=== PATIENT | male | born 1950 | race Caucasian/White ===

== ENCOUNTER 2019-03-07 18:18 | Outpatient (REF) | payer MEDICARE, OTHER, SELFPAY ==
[2019-03-07 20:48] LABS: ALT 67 U/L (12-78); BUN 24 mg/dL (7-18); CREATININE 1.11 mg/dL (0.70-1.30); Calcium 8.7 mg/dL (8.5-10.1); Chloride 106 mmol/L (98-107); Glucose 105 mg/dL (70-100); LDL CHOLESTEROL 97 mg/dL (<100); Sodium 141 mmol/L (136-145)
[2019-03-09 10:43] LABS: PSA, Diagnostic 0.4 ng/ml (0-4.5)
== END 2019-03-07 18:38 ==
LOC: NCHCN 18:18
PROVIDERS: PCP Internal Medicine; Visit Provider Internal Medicine
DX: I10 Essential (primary) hypertension (principal); E78.5 Hyperlipidemia, unspecified; N40.0 Benign prostatic hyperplasia without lower urinary tract symptoms
CPT/HCPCS: 80048; 83721; 84153; 84460

== ENCOUNTER 2020-08-29 16:21 | Outpatient (REF) | payer MEDICARE, OTHER, SELFPAY ==
--- NOTE | 2020-08-29 15:20 | SKI_PTH ---
PATIENT: Elvin Winkler JR LOC: [facility] U#:[id number] AGE/SX: 70/M ROOM: RE08/29/[address]: Aryan Wyatt : 1950 BED: DIS: 08/29/2020 SPEC #: [id number] RECD: 09/01/20 12:09 STATUS: JAIRO REFamilia #: [id number] RAMIN: 08/29/20 15:[address]: Aryan Wyatt DEPT: Surgical Specimen RECD BY: Trista Aguirre ENTERED: 09/01/20 12:10 SP TYPE: NEELA MCKENZIE DR: Jem Villagomez Tissues: 1 - SKIN BIOPSY(SHAVE/PUNCH) Procedures: SKIN LEVEL 4 Comments: [id number]
[2020-08-29 19:36] LABS: ALT 50 U/L (16-63); Albumin 3.7 g/dL (3.4-5.0); Anion Gap 9.4 mmol/L (3-11); BUN 17 mg/dL (7-18); CO2 26.6 mmol/L (21.0-32.0); CREATININE 0.9 mg/dL (0.70-1.30); Calcium 8.7 mg/dL (8.5-10.1); Chloride 107 mmol/L (98-107); Glucose 113 mg/dL (74-106); PHOSPHORUS 3.3 mg/dL (2.6-4.7); Potassium 4.1 mmol/L (3.5-5.1); Sodium 143 mmol/L (136-145)
[2020-08-29 20:03] LABS: LDL CHOLESTEROL 91 mg/dL (<100)
== END 2020-08-29 16:22 | disposition home or self-care (01) ==
LOC: NCHCN 16:21
PROVIDERS: PCP Internal Medicine; Visit Provider Internal Medicine
DX: E78.5 Hyperlipidemia, unspecified (principal); D03.39 Melanoma in situ of other parts of face
CPT/HCPCS: 80069; 83721; 84460; 88305

== ENCOUNTER 2020-11-17 12:36 | Outpatient (REF) | payer MEDICARE, OTHER, SELFPAY ==
[2020-11-18 02:01] LABS: COVID-19 RT-PCR UVMMC Result Negative (Negative)
== END 2020-11-17 12:37 | disposition home or self-care (01) ==
LOC: NCHCN 12:36
PROVIDERS: PCP Internal Medicine; Visit Provider Physician Assistant
DX: Z20.822 Contact with and (suspected) exposure to COVID-19 (principal); Z01.818 Encounter for other preprocedural examination
CPT/HCPCS: U0003; U0005

== ENCOUNTER 2022-02-08 17:33 | Outpatient (REF) | payer MEDICARE, OTHER, SELFPAY ==
--- OUTSIDE RECORDS SUMMARY | 2022-02-08 17:43 | XMS_ITS | Encounter Summary ---
:1950 Author Organization [facility] Address [address] [place] [address] Care Team Providers Name Role Phone Jem Villagomez MD Primary Care Provider Encounter Details Date Type Department Care Team Description 11/17/2020 Lab Requisition [facility] Outr Resulting Lab, Pathology & Laboratory Provider [facility] [address], [place] [address] Social History Tobacco Use Types Packs/Day Years Used Date Never Assessed Sex Assigned at Date Recorded Not on file documented as of this encounter Plan of Treatment Not on filedocumented as of this encounter Procedures Procedure Name Priority Date/Time Associated Diagnosis Comme nts COVID-19 TEST [facility] Today 11/17/2020 8:30 EDT LAB PCR COVID-19 TESTING Routine 11/17/2020 8:30 EDT Resu lts for this procedure are i n the results section. documented in this encounter Results COVID-19 TEST [facility] LAB PCR (11/17/2020 8:30 EDT) Specimen Swab - Entire nasopharynx (body structur e) Performing Organization Address City/State/ZIP Code Phon e Number [facility] [address] [place] [address] SERVICES COVID-19 TESTING (11/17/2020 8:30 EDT) COVID-19 rt-PCR Negative Negative [facility] Result Comment: [facility] This test has not been FDA c leared or approved. This test has been authorized by FDA under an EUA for use by authorized laboratories. This test has been authorized only for detection of nucleic acid fro SERVICES m 2019-nCoV, not for any oth er viruses or pathogens. This test is only authorized for the duration of the declaration that circumstances exist justifying the authorization of emergency use of in vitro d iagnostic tests for detectio n and/or diagnosis of 2019-nCoV under section 564(b)(1) of Act, 21 U.S.C ?? 360bbb-3(b) (1), unless the authorization is terminated or revoked sooner. Negative results do not prec lude 2019-nCoV infection and should not be used as the sole basis for treatment or other patient management decisions. Negative results must be combined with clinical observa tions, patient history, and epidemiological informatio n. Performed on the KODAher Fusion instrument Performing Lab [facility] SERVICES Specimen Swab Performing Organization Address City/State/ZIP Code Phon e Number [facility] [address] [place] [address] SERVICES documented in this encounter Visit Diagnoses Not on filedocumented in this encounter Care Teams Dental Appliance Mechanic Relationship Specialty Start Date End Date Jem Villagomez MD PCP - General 01/16/[address] [place] [address] documented as of this encounter
--- OUTSIDE RECORDS SUMMARY | 2022-02-08 17:43 | XMS_ITS | Encounter Summary ---
:1950 Author Organization [facility] [place] [address] Care Team Providers Name Role Phone Aryan Wyatt MD Primary Care Provider Encounter Details Date Type Department Care Team Description 10/22/2021 Office Visit Otolaryngology at [facility] Lucas Saavedra Melanoma of face [facility] [place] [address] [facility] [phone] OTOLARYNGOLOGY DEPT. [place], [place] [address] Social History Tobacco Use Types Packs/Day Years Used Date Never Smoker Smokeless Tobacco: Never Used Alcohol Use Standard Drinks/Week Comments Yes 0 (1 standard drink = 0.6 oz pure alcoho l) occ. Alcohol Habits Answer Date Recorded How often do you have a drink containing alcohol? Not asked How many drinks containing alcohol do you have on a typical Not asked day when you are drinking? How often do you have six or more drinks on one occasion? No t asked Comment: occ. 11/19/2020 Sex Assigned at Date Recorded Not on file documented as of this encounter Last Filed Vital Signs Vital Sign Reading Time Taken Comments Blood Pressure - - Pulse - - Temperature - - Respiratory Rate - - Oxygen Saturation - - Inhaled Oxygen Concentration - - Weight 103.1 kg (227 lb 6.4 oz) 10/22/2021 10:04 AM EDT Height 177.8 cm (5' 10) 10/22/2021 10:04 AM EDT Body Mass Index 32.63 10/22/2021 10:04 AM EDT documented in this encounter Progress Notes Lucas Saavedra MD - 10/22/2021 10:40 AM EDT Images from the original note were not included. Subjective: Patient ID: Elvin Winkler Jr. is a 71 y.o. male. HPI He is seen in follow up of his left cheek melanoma. Date Presented melanoma TB: 12/09/2020 Diagnosis/Tumor Site: Invasive melanoma of the left cheek Is this Metastatic Disease: No Pathology/Histology: 10/30/19 left cheek Mohs excision: Invasive melanoma, 2.2mm, 9 mitosis, ulceration not noted 11/20/19 Left Neck SLNB: Fibroadipose tissue, no lymphoid tissue identified Stage: pT3a N0 (no mapping so no N stage) Tx- at least stagte IIA Options Discussed: Surveillance vs completion lymph node dissection, CT of the neck Recommendations: surveillance with ENT and dermatology Doing well since last visit Mar with me. Reports feeling great. He notes that the cheek wound appearance is much improved and remains very pleased. Denies new concerning lesion on face and denies neck mass. Occasional itching from the SLNB site on left neck. No issue with donor site Followed in dermatology, last visit Jun 2021 No past medical history on file. Past Surgical History: Procedure Laterality Date ? ? PRO ADJ TISS XFER HEAD, FAC, HAND <10SQCM Left 11/19/2020 ADJ.TISSUE TRANSFER, REARRANGEMENT, 10SQ.CM OR LESS, CHEEK (WRVU 8.6) performed by Blaze Saavedra MD at [facility] MAIN OR ??? PRO BX/REMV, LYMPH NODE, DEEP CERV Left 11/19/2020 BIOPSY OR EXCISION OF LYMPH NODE(S), OPEN, DEEP CERVICAL NODES (WRVU 6.74) performed by Lucas Saavedra MD at [facility] MAIN OR ? ? PRO FULL THICK GRFT NOS, EAR, LID <20SQCM 11/19/2020 FULL THICKNESS GRAFT,FREE, W/ DIRECT CLOSURE DONOR SITE, 20SQ CM OR LESS, EYELIDS (WRVU 11.64) performed by Lucas Saavedra MD at [facility] MAIN OR Patient Active Problem List Diagnosis Code ??? 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 Malignant melanoma C43.9 Current Outpatient Medications: ??? aspirin EC 81 mg Tablet, Delayed Release (E.C.), Take 1 tablet by mouth daily., Disp: 30 tablet,Rfl: 0 ??? glucosamine sulfate 500 mg Tablet, Take by mouth., Disp: , Rfl: ??? lactobacillus rhamnosus, GG, (CULTURELLE) 10 billion cell Capsule, Take 1 capsule by mouth daily., Disp: , Rfl: ??? amLODIPine (Norvasc) 10 mg Tablet, TAKE 1 TABLET BY MOUTH EVERY DAY, Disp: , Rfl: ??? torsemide (Demadex) 10 mg Tablet, TAKE 1 TABLET BY MOUTH EVERY DAY, Disp: , Rfl: ??? lisinopriL (Prinivil;Zestril) 40 mg Tablet, TAKE 1 TABLET BY MOUTH EVERY NIGHT, Disp: , Rfl: ??? finasteride (Proscar) 5 mg Tablet, TAKE 1 TABLET BY MOUTH DAILY, Disp: , Rfl: ??? simvastatin (Zocor) 40 mg Tablet, Take 40 mg by mouth nightly., Disp: , Rfl: ??? calcium carbonate/vitamin D3 (VITAMIN D-3 ORAL), Take by mouth., Disp: , Rfl: ??? potassium (POTASSIMIN ORAL), Take by mouth., Disp: , Rfl: ??? acetaminophen (Tylenol) 325 mg Tablet, Take 2 tablets by mouth every 4 hours as needed for Pain.(Patient not taking: No sig reported), Disp: 30 tablet, Rfl: 1 Allergies Allergen Reactions ??? Sulfa (Sulfonamide Antibiotics) Rash Review of Systems: A comprehensive Review of Systems is completed and except as noted in the HPI is negative for constitutional, neurologic, respiratory, cardiac, vascular, immune, GI, , MSK, endocrine, skin, and functional systems which are reviewed. No family history on file. There is no pertinent family history of otolaryngology problems. Social History Socioeconomic History ??? Marital status: Spouse name: Not on file ??? Number of children: Not on file ??? Years of education: Not on file ??? Highest education level: Not on file Occupational History ??? Not on file Tobacco Use ??? Smoking status: Never Smoker ??? Smokeless tobacco: Never Used Vaping Use ??? Vaping Use: Never used Substance and Sexual Activity ??? Alcohol use: Yes Comment: occ. ??? Drug use: Not Currently ??? Sexual activity: Not on file Other Topics Concern ??? Not on file Social History Narrative ??? Not on file Social Determinants of Health Financial Resource Strain: Not on file Food Insecurity: Not on file Transportation Needs: Not on file Physical Activity: Not on file Housing Stability: Not on file retired Review of Systems Objective: Physical Exam Vitals and nursing note reviewed. Constitutional: General: He is not in acute distress. Appearance: He is well-developed. He is not diaphoretic. HENT: Head: Normocephalic. Jaw: No trismus. Right Ear: Tympanic membrane, ear canal and external ear normal. No tenderness. No middle ear effusion. Left Ear: Tympanic membrane, ear canal and external ear normal. No tenderness. No middle ear effusion. Nose: Septal deviation present. No nasal deformity or mucosal edema (mild). Mouth/Throat: Mouth: No oral lesions. Pharynx: Uvula midline. No oropharyngeal exudate. Eyes: General: No scleral icterus. Conjunctiva/sclera: Conjunctivae normal. Pupils: Pupils are equal, round, and reactive to light. Neck: Thyroid: No thyroid mass or thyromegaly. Vascular: No carotid bruit. Trachea: No tracheal deviation. Pulmonary: Effort: Pulmonary effort is normal. No respiratory distress. Breath sounds: No stridor. Musculoskeletal: Cervical back: Normal range of motion and neck supple. Lymphadenopathy: Cervical: No cervical adenopathy. Skin: General: Skin is warm. Findings: No erythema. Neurological: Mental Status: He is alert and oriented to person, place, and time. Cranial Nerves: No cranial nerve deficit. Deep Tendon Reflexes: Reflexes are normal and symmetric. Psychiatric: Behavior: Behavior normal. Thought Content: Thought content normal. Judgment: Judgment normal. Assessment and Plan: Doing well. Discussed need for continued follow ups with dermatology F/U in ENT PRN documented in this encounter Plan of Treatment Upcoming Encounters Date Type Specialty Care Team Description 04/15/2022 Office Visit Dermatology Erasto Barrett M D [facility] DR [address] [place], [place] [address] (Wo rk) documented as of this encounter Visit Diagnoses Diagnosis Melanoma of face Malignant melanoma of skin of other and unspecified parts of face documented in this encounter Care Teams Electrical Tech Relationship Specialty Start Date End Date Aryan Wyatt MD PCP - General General Internal Medicine 10/29/[address] [place] [address] documented as of this encounter
--- OUTSIDE RECORDS SUMMARY | 2022-02-08 17:43 | XMS_ITS | Encounter Summary ---
:1950 Author Organization [facility] [place] [address] Care Team Providers Name Role Phone Aryan Wyatt MD Primary Care Provider Encounter Details Date Type Department Care Team Description 12/02/2020 Telephone Otolaryngology at [facility] [place] [address] Social History Tobacco Use Types Packs/Day Years [...] on file documented as of this encounter Miscellaneous Notes Telephone Encounter - Jennifer Alfaro - 12/02/2020 2:34 PM EDT Called pt to schedule 6 wk fuv OV with BG. LVM for pt to call back. documented in this encounter Plan of Treatment Upcoming Encounters Date Type Specialty Care Team Description 04/15/2022 Office Visit Dermatology Erasto Barrett M D [facility] DR [address] [place], [place] [address] (Wo rk) documented as of this encounter Visit Diagnoses Not on filedocumented in this encounter Care Teams Bead Wire Insulator Relationship Specialty Start Date End Date Aryan Wyatt MD PCP - General General Internal Medicine 10/29/[address] [place] [phone] documented as of this encounter
--- OUTSIDE RECORDS SUMMARY | 2022-02-08 17:43 | XMS_ITS | Encounter Summary ---
:1950 Author Organization [facility] Address [address] [place] [address] Care Team Providers Name Role Phone Unavailable Primary Care Provider Unavailable Encounter Details Date Type Department Care Team Description 02/16/2007 Results Only [facility] - Esha Blanca conversion MD [address] [facility] [address] [place], [place] [id number] [place] [phone] (Wo rk) Social History Tobacco Use Types Packs/Day Years Used Date Never Assessed Sex Assigned at Date Recorded Not on file documented as of this encounter Plan of Treatment Not on filedocumented as of this encounter Procedures Procedure Name Priority Date/Time Associated Diagnosis Comme nts CYTOPATHOLOGY Routine 02/16/2007 0:00 EDT Results for this procedure are i n the results section. CYTOPATHOLOGY Routine 02/16/2007 0:00 EDT Results for this procedure are i n the results section. CYTOPATHOLOGY Routine 02/16/2007 0:00 EDT Results for this procedure are i n the results section. SURGICAL PATHOLOGY Routine 02/16/2007 0:00 EDT Re sults for this procedure are i n the results section. documented in this encounter Results CYTOPATHOLOGY (02/16/2007 0:00 EDT) Pathology Report: CYTOPATHOLOGY REPORT [facility] Reports generated via electronic interface contain gissel ginal data; however they are lacking the format of the original re port. Caution should be taken when reading/interpreting unfo rmatted reports. Name: ? PHIL WINKLER ? Accession #: ? [id number] : ? 1950 (Age: 56) ??M ?Collect Date: ? 01/23 Location: ? [facility] ? Receive Date : ? 02/17/2007 Provider: ? EBEN LEMON MD Copy to: ?IVON MERCER MD ? CYTOLOGIC DIAGNOSIS: ? Lung, right upper lobe, bronchial brush, cytolo gic evaluation: - No malignant cells identified. Document reviewed and electronically signed by: ? RUTH FERRER MD Report Date: ??02/17/2007 17:16 By the signature above, the attending physician certif ies that he/she has personally conducted a gross and/or microscopic examin ation of the described specimens and rendered or confirmed the above diagnosi s. Specimen Type: ? Bronchial [place], Right Upper Lobe Clinical History: ? Life-long non-smoker. ??Right upper lobe cavitary mass. ??Hemoptysis x1 month ago. ??PPD negative. ??Rule out lung can cer vs. TB vs. Derick's granuloma. ? Gross Description: ? 1 tube of Cytolyt, containing bru sh collection device, was received and processed by selective cellular enhancement technique. ? End of Report Specimen Performing Organization Address City/State/ZIP Code Phon e Number [facility] [address] [place] [address] SERVICES [facility] [address] [place] [address] CYTOPATHOLOGY (02/16/2007 0:00 EDT) Pathologist [facility] [place] Pathology Report: CYTOPATHOLOGY REPORT [facility] Reports generated via electronic interface contain gissel ginal data; however they are lacking the format of the original re port. Caution should be taken when reading/interpreting unfo rmatted reports. Name: ? PHIL WINKLER ? Accession #: ? [id number] : ? 1950 (Age: 56) ??M ?Collect Date: ? 01/23 Location: ? [facility] ? Receive Date : ? 02/17/2007 Provider: ? EBEN LEMON MD Copy to: ?IVON MERCER MD ? CYTOLOGIC DIAGNOSIS: ? Lung, right upper, bronchial wash #4, cytologic evaluation: - No malignant cells identified. Document reviewed and electronically signed by: ? RUTH FERRER MD Report Date: ??02/17/2007 17:16 By the signature above, the attending physician certif ies that he/she has personally conducted a gross and/or microscopic examin ation of the described specimens and rendered or confirmed the above diagnosi s. Specimen Type: ? Bronchial Wash, Right Upper Lobe (#4) Clinical History: ? Life-long non-smoker. ??Right upper lobe cavitary mass. ??Hemoptysis x1 month ago. ??PPD negative. ??Rule out lung cancer vs. TB vs. Derick's granuloma. ? Gross Description: ? 1 tube of Cytolyt was received and processed by selective cellular enhancement technique. ? End of Report Specimen Performing Organization Address City/State/ZIP Code Phon e Number [facility] [address] [place] [address] SERVICES [facility] [address] [place] [address] CYTOPATHOLOGY (02/16/2007 0:00 EDT) Pathologist [facility] [place] Pathology Report: CYTOPATHOLOGY REPORT [facility] Reports generated via electronic interface contain gissel ginal data; however they are lacking the format of the original re port. Caution should be taken when reading/interpreting unfo rmatted reports. Name: ? PHIL WINKLER ? Accession #: ? [id number] : ? 1950 (Age: 56) ??M ?Collect Date: ? 01/23 Location: ? [facility] ? Receive Date : ? 02/17/2007 Provider: ? EBEN LEMON MD Copy to: ?IVON MERCER MD ? CYTOLOGIC DIAGNOSIS: ? Lung, right upper lobe, #8, bronchial washing, cytologic evaluation: 1. ?No malignant cells identified. 2. ? Benign bronchial cells and scattered leukocyt es. Document reviewed and electronically signed by: ? RUTH FERRER MD Report Date: ??02/17/2007 17:16 By the signature above, the attending physician certif ies that he/she has personally conducted a gross and/or microscopic examin ation of the described specimens and rendered or confirmed the above diagnosi s. Specimen Type: ? Bronchial Wash, Right Upper Lobe (#8) Clinical History: ? Life-long non-smoker. ??Right upper lobe cavitary mass. ??Hemoptysis x 1 month ago. ??PPD negative. ? ?Rule out lung cancer vs. TB vs. Derick's granuloma. ? Gross Description: ? 1 tube of Cytolyt was received and processed by selective cellular enhancement technique. ? End of Report Specimen Performing Organization Address City/State/ZIP Code Phon e Number [facility] [address] [place] [address] SERVICES [facility] [address] [place] [address] SURGICAL PATHOLOGY (02/16/2007 0:00 EDT) Pathology Report: SURGICAL PATHOLOGY REPORT [facility] Reports generated via electronic interface contain gissel ginal data; LAB however they are lacking the format of the original re port. Caution should be taken when reading/interpreting unfo rmatted reports. Name: ? PHIL WINKLER ? Accession #: ? [id number] ? : ? 1950 (Age: 56) ??M ? Collect Date: ? 02/16/2007 ? Location: ? [facility] ? Receive Date: ? 007 ? Provider: EBEN LEMON MD Copy to: IVON MERCER MD ? Final Pathologic Diagnosis: ? Lung, right lower lobe posterior segment, trans bronchial biopsy: - Lung parenchyma with minimal non-specific changes. ? ?See comment. Comment: ? There is a mild lymphocytic infiltrate in the i nterstitium and a is a slight prominence of pneumocytes. There is no evidence of granulomas, vasculitis, or tumor. ??An A FB stain for mycobacterium is negative. ??A GMS stain for fungal organisms is negative. ??(Dr. Cho)/[facility] Document reviewed and electronically signed by: PAYTON MENDIETA MD Report ??Date: 02/21/2007 17:43 By the signature above, the attending physician certif ies that he/she has personally conducted a gross and/or microscopic examin ation of the described specimens and rendered or confirmed the above diagnosi s. Specimen(s) Received: ? Transbronchial lung biopsy ??RLL post segment Clinical History: ? Life-long non-smoker; had hemoptysis x1 mo ago; no wt loss; PPD (-); cavitary mass in RUL; R/O CA lung vs. TB vs. Nabil' s granulation Gross Description: ? Received in formalin labelled Al jesus and right upper lobe bx are two light tovar focally white soft pieces of tissue, each of which measures 0.2 x 0.1 x 0.1 cm which are submitted intact in one cassette. ( Letty Garcia/romeo End of Report Specimen Performing Organization Address City/State/ZIP Code Phon e Number [facility] [address] [place] [address] SERVICES [facility] [address] [place] [address] documented in this encounter Visit Diagnoses Not on filedocumented in this encounter
--- OUTSIDE RECORDS SUMMARY | 2022-02-08 17:43 | XMS_ITS | Encounter Summary ---
:1950 Author Organization Address [address] [place] [address] Care Team Providers Name Role Phone Jem Villagomez MD Primary Care Provider Encounter Details Date Type Department Care Team Description 09/01/2020 Lab Requisition [facility] Aryan Wyatt for other Pathology & E, general examination Laboratory Medicine - [address] [place], [place] [address] [facility] [id number] [place] [phone] Social History Tobacco Use Types Packs/Day Years Used Date Never Assessed Sex Assigned at Date Recorded Not on file documented as of this encounter Plan of Treatment Scheduled Orders Name Type Priority Associated Diagnoses Order S chedule SURGICAL PATHOLOGY Pathology Today Encounter for other ge neral Ordered: 09/01/2020 examination documented as of this encounter Visit Diagnoses Diagnosis Encounter for other general examination documented in this encounter Care Teams Telecom Specialist Relationship Specialty Start Date End Date Jem Villagomez MD PCP - General 01/16/[address] [place] [address] [place], [place] [phone] documented as of this encounter
--- OUTSIDE RECORDS SUMMARY | 2022-02-08 17:43 | XMS_ITS | Encounter Summary ---
:1950 Author Organization [facility] Address [address] [place] [address] Care Team Providers Name Role Phone Aryan Wyatt MD Primary Care Provider Encounter Details Date Type Department Care Team Description 10/22/2021 Office Visit Dermatology at [facility] Caden Barrett MD SK (seborrheic keratosis); [facility] King angioma; [address] Multiple benign nevi; [place] [address] HEATER Lentigines; [phone] RD-DERMATOLOGY History of melanoma; [place], [place] [address] History of melanoma in situ; [phone] Rosacea (Work) Social History Tobacco Use Types Packs/Day Years [...] on file documented as of this encounter Progress Notes Erasto Barrett MD - 10/22/2021 9:20 AM EDT Images from the original note were not included. DEPARTMENT OF DERMATOLOGY Medical Dermatology Clinic Provider: Erasto Barrett MD Patient's preferred name Elvin Preferred contact method for results [x]?Phone []?myD-H []?Letter Detailed phone message OK? OK Are there any other people with whom we may discuss your care? N ?? Past Medical History Date, location, treatment Melanoma Melanoma Biopsied by his home PCP, then referred to Mohs for treatment. 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 Recommended re excision done per notes in 2014 Dysplastic nevi N SCC N BCC Yes, Left nose per patient AKs N Other relevant past medical history ?? Family History Details Melanoma N NMSC N Other relevant family history N Social History Occupation: fajardo,builder,contractor- retired Hobbies: Other: ?? History of Present Illness: Elvin Winkler Jr. is a 71 y.o. Patient returns to clinic today for 3 month melanoma skin exam. No specific concerns. General: feeling well Constitutional: Denies unintentional weight loss, weakness, fever Respiratory: Denies cough, chest pain, shortness of breath Hepatic/GI: Denies abdominal pain, jaundice, vomiting Neurologic: Denies headache, visual disturbances, seizures, numbness, balance problems Musculoskeletal: Denies bone pain (e.g. rib, spine, hip) Lymphatics: swollen glands or lumps Skin: denies new or changing skin lesions other than those (if any) noted in HPI Last visit at Dermatology: 07/23/2021 Last visit with this provider: Visit date not found Medications: Reviewed in eD-H Allergies: Reviewed in eD-H Skin Examination: Full skin examination: Patient asked to undress to their comfort level. Verbalized that the provider???s preference is that the patient remove all clothing and that the provider will not examine areas patient elects to keep covered. Patient elects to keep underwear on and have the following examined: s calp, hair, face, ears, neck, chest, axillae, abdomen, back, upper and lower extremities, genitalia and buttocks. Assessment/Plan #. Erythrotelangiectatic Rosacea - Erythematous patches with scattered telangiectasias on the BL cheeks and nose - Discussed chronic nature of rosacea and various aspects of the disease such as telangectasia, flushing, triggers and papules. Discussed that topical treatment work well for papules however erythema and telangiectasias are best treated with PDL laser - Patient elects to monitor for changes, declining treatment at this time. #. Seborrheic keratoses - Scattered yellow to tovar stuck on papules 3-6 mm in size on head, neck,chest, back, arms, and legs - Benign nature of lesions discussed - Patient reassured. #. King Angiomas - Multiple 0.2-0.4cm bright red, well-demarcated papules with well formed lobuleson dermoscopy on head, neck, trunk, and extremities - Reassured pt of benign nature and that more would come with increasing age. #. Nevi - Scattered brown macules and papules on the head, back, chest, and extremities w/o concerning findings on dermoscopy - Pt reassured. - Advised the pt to monitor nevi monthly and if they are growing, changing color, or new lesions appear pt should call back to be seen before their next FBSE. #. Solar lentigines - Scattered light brown 3-6mm macules on the upper back, chest, BL arms and BL lower extremities. - Pt reassured. - Advised the pt to monitor pigmented lesions monthly and if they are growing, changing color, or new lesions appear pt should call back to be seen before their next FBSE. #. History of Malignant Melanoma - Well healed surgical scar on left cheek. NER. No cervical, pre- or post-auricular, submandibular, submental, occipital, supraclavicular, axillary, or parotid LAD. - Reassured patient there is NER. - Discussed importance of sun protection, sun avoidance strategies, protective clothing, and sunscreen. I discussed warning signs for skin cancer, including the ABCE's of melanoma. #. History of BCC- Well-healed scar on left nose, as per history. NER - Reassured patient there is NER. Other: ??? Sun protection discussed (protective clothing and SPF30+ broad-spectrum sunscreen) ??? OTC skin products discussed RTC: 6 months for melanoma skin exam. [x]Note routed to assistant secretary []Recall placed in scheduling system []Appointment scheduled at checkout Scribe attestation: HODAN MAYERS LPN has performed the documentation for this encounter in the presence of and acting as a scribe for Erasto Barrett MD. I performed the above scribed service and agree with the accuracy of the documentation in this encounter. Reviewed and signed by: Erasto Barrett MD Dermatology [facility] Patient seen and evaluated with staff children's attendant: Pedro Wallace MD Dermatology [facility] Pedro Wallace MD - 10/22/2021 9:20 AM EDT I directly supervised Dr. Barrett during this office visit. Dr. Barrett presented the history and physical exam to me. I, then, saw and examined this patient with Dr. Barrett. We reviewed the history and pertinent details and I confirmed the physical findings. I agree with the details of the history and physical exam as documented in Dr. Barrett's note. PEDRO WALLACE MD Staff Physician documented in this encounter Plan of Treatment Upcoming Encounters Date Type Specialty Care Team Description 04/15/2022 Office Visit Dermatology Erasto Barrett M D [facility] DR JUVNEAL YOU-DERMAT [place], [place] [address] (Wo rk) documented as of this encounter Visit Diagnoses Diagnosis SK (seborrheic keratosis) Other seborrheic keratosis King angioma Nevus, non-neoplastic Multiple benign nevi Benign neoplasm of skin, site unspecifie d Lentigines Other dyschromia History of melanoma Personal history of malignant melanoma o f skin History of melanoma in situ Personal history of malignant melanoma o f skin Rosacea documented in this encounter Care Teams Bottom Finisher Relationship Specialty Start Date End Date Aryan Wyatt MD PCP - General General Internal Medicine 10/29/[address] [place] [address] documented as of this encounter
--- OUTSIDE RECORDS SUMMARY | 2022-02-08 17:43 | XMS_ITS | Encounter Summary ---
:1950 Author Organization [facility] [place] [address] Care Team Providers Name Role Phone Aryan Wyatt MD Primary Care Provider Encounter Details Date Type Department Care Team Description 01/08/2021 Clinical Support Dermatology at [facility] H/O Malignant melanoma; Lorenzo Kulkarni MD Neoplasm of uncertain behavior of skin; [address] [facility] Dermatofibroma; [facility] DR King angioma; [id number] [facility] Sebaceous hyperplasia [phone] [place] [address] Social History Tobacco Use Types Packs/Day Years [...] on file documented as of this encounter Patient Instructions Patient InstructionsShanon Trujillo, EMBEDDED FIRMWARE ENGINEER - 01/08/2021 9:30 AM EDT Your provider today was Dr. James Edmonds. You have one or more biopsies today. Wound Care ??? If you have a bandage, it can be removed after 24 hours. If there is still bleeding, you can replace with a non-stick bandage. Do not leave our bandage on for longer than 48 hours or the area can become irritated by the adhesive. ??? It is normal to have minimal swelling, bruising, or redness. Your skin may have some irritation from the bandage itself. ??? Begin wound care as below, once daily, until the biopsy site has healed. ??? o Wash hands with soap and water. o Clean the surgical site with soapy water, then pat dry. o Apply ointment such as petrolatum (Vaseline) or Aquaphor. Do not apply antibiotic or triple antibiotic ointments unless this was specifically instructed by your doctor. This can cause more intense inflammation or dermatitis (rash). It does not help healing or prevent infection any better than plain Vaseline. o Make sure your tube or jar of petrolatum is new or unused to prevent prior contamination from entering your wound. o Secure your nonstick bandage with paper tape or a bandage. Band-aids are okay, but typically have more adhesive that can irritate the skin compared to paper tape. This can be purchased at a drug store. o Continue this wound care daily until the site has healed. For pain: Most patients of different ages do not require any pain medications. If you do feel soreness, throbbing or sharp pains, start by taking over the counter extra strength acetaminophen (up to 3000 mg in a24 hour period) or NSAIDS (non-steroid anti-inflammatory drugs such as ibuprofen) up to 2400 mg in a25 hour period. If you are still having pain despite maximizing doses of over the counter medications, please call. We do not routinely prescribe narcotics or controlled substances for biopsies, so anysevere pain would be concerning and would require in-person evaluation. When to call your doctor: ??? Fever of 100.4 degrees Fahrenheit or higher ??? Bleeding not controlled with direct firm pressure to your wound. Bleeding is most common in the first 48 hours. ??? Pain that is worsening and not relieved by over the counter medications such as acetaminophen (up to 3000 mg in a 24 hour period) ??? Wound reopening after stitching ??? Pus or bad odor from your wound ??? Worsening redness and warmth around your wound ??? If you think your surgery site is infected, please call us before seeking care or antibiotics from other providers ??? Please call us before seeking care in an emergency room or primary care. ??? If you do call, please leave your full name, phone number, date of , date of surgery, and medical record number if you have it. If after hours, please call the gamma ray operator or [phone] and ask for the roller skates assembler on-call. If you have any non-urgent questions or concerns, please feel free to call my office or contact me through our patient portal, [employer], at [email or web address] How to contact us during business hours Dermatology at [facility]: Mohs scheduling or Mohs follow-up appointments: [phone] documented in this encounter Progress Notes James Edmonds MD - 01/08/2021 9:30 AM EDT Frozen Biopsy Procedure: Skin biopsy by shave technique Location: Left lateral canthus Discussed indications for procedure and expectations including risks and benefits. Verbal consent obtained. Skin prep with alcohol. Local anesthesia with 1% xylocaine, 1/100,000 epinephrine. A sample of the lesion was removed by shave technique to the level of the dermis and submitted for frozen sections and revealed actinic keratosis. Hemostasis obtained (AlCl and/or electrocautery). There were no complications; the pt. tolerated the procedure well. James Edmonds MD PhD Mohs Micrographic Surgery and Dermatologic Oncology Department of Dermatology [address] [place] [address] Irlanda Lazo MD - 01/08/2021 9:30 AM EDT Images from the original note were not included. DEPARTMENT OF DERMATOLOGY Medical Dermatology Clinic Note Provider: James Edmonds MD PAST MEDICAL HISTORY If no, type N. If yes, type date, location, treatment Melanoma Yes Invasive Melanoma - Breslow depth 2.2 (pT3a) without ulceration, Left cheek, h/o MIS in same area few years prior, s/p Mohs with [facility] 10/29/2020, SLNB and repair with FTSG with Plastics w/o lymph node tissue identified on specimen 11/19/2020 Dysplastic nevi No SCC No BCC Yes - Left nose per patient AKs No UV Exposure & Protection Sun Protection: intermittently applies sunscreen FAMILY HISTORY If yes, details Melanoma No known family history of melanonma SOCIAL HISTORY , lives with History of Present Illness: Elvin Winkler Jr. is a 70 y.o. year old male with a history of melanoma as above who presents to clinic for wound check and FBSE for history of melanoma. Review of Systems: General: Feeling well. Skin: No other skin concerns. Medications: Reviewed in eD-H Allergies: Reviewed in eD-H Skin Examination: A full body skin examination was performed including the scalp, face, ears, neck, chest, abdomen, back, buttocks, bilateral upper extremities, hands, bilateral lower extremities, feet. Assessment/Plan #. H/O Invasive Melanoma - Breslow depth 2.2 (pT3a) without ulceration, Left cheek, h/o MIS in same area few years prior, s/p Mohs with [facility] 10/29/2020, SLNB and repair with FTSG with Plastics w/o lymph node tissue identified on specimen 11/19/2020 EXAM: slightly protuberant FTSG on left malar cheek, well healed. No nodularity or repigmentation. No pre-/post-auricular, cervical, supraclavicular, axillary or inguinal lymphadenopathy. - NER - q3 month FBSE #. Neoplasm of Uncertain Behavior of Skin EXAM: on the left lateral canthus, there is an eroded, crusted pink papule. - DDX includes: BCC vs AK vs other - Joint decision to pursue frozen shave biopsy today for further histologic evaluation as below. Frozen Biopsy Procedure: Skin biopsy by shave technique Location: Left lateral canthus Discussed indications for procedure and expectations including risks and benefits. Verbal consent obtained. Skin prep with alcohol. Local anesthesia with 1% xylocaine, 1/100,000 epinephrine. A sample of the lesion was removed by shave technique to the level of the dermis and submitted for frozen sections and revealed Actinic Keratosis. Hemostasis obtained (AlCl and/or electrocautery). There were no complications; the pt. tolerated the procedure well. Subsequent curettage was performed x1 for any residual. #. Dermatofibroma EXAM: on the right medial thigh, there areis a light brownish-pink, firm, round papule which displaycentral umbilication with central pressure. - Benign nature discussed. No further intervention indicated at this time. #. King Angiomas EXAM: scattered on the trunk and extremities, there are multiple, well- circumscribed, bright red macules and papules with smooth surfaces. - Benign, vascular nature discussed. No further intervention indicated at this time. #. Sebaceous hyperplasia EXAM: on the face, there are a few, yellowish papules with a central dell. - Benign nature discussed. No further intervention indicated at this time. Other items to document in the assessment/plan if relevant ??? Reviewed and/or interpreted test results ??? Sun protection discussed (protective clothing and SPF30+ broad-spectrum sunscreen) RTC: 3-4 months for FBSE, may coordinate with patient's Endocrinology appointment [x]Note routed to sharepoint administrator []Recall has been placed in scheduling system []Appointment scheduled at checkout Irlanda Lazo MD Dermatology [facility] Patient seen and evaluated with staff roller skates assembler: James Edmonds MD Department of Dermatology [facility] Staff attestation: I was the supervising physician working with dermatology resident?? Dr. Lazo in the dermatology section during this patient visit.?? The level of?? Resident supervision for this patient visit wasdirect supervision. The case was discussed with the resident, plan made together, and the exam was repeated by me. I have reviewed the resident's encounter note details and level of service and agree with the documentation. James Edmonds MD PhD Attending Physician Section of Dermatology, Department of Surgery documented in this encounter Plan of Treatment Upcoming Encounters Date Type Specialty Care Team Description 04/15/2022 Office Visit Dermatology Erasto Barrett M D [facility] DR JUVENAL YOU-DERMAT [place], [place] [address] (Wo rk) documented as of this encounter Visit Diagnoses Diagnosis H/O Malignant melanoma Personal history of malignant melanoma o f skin Neoplasm of uncertain behavior of skin Dermatofibroma Benign neoplasm of skin, site unspecifie d King angioma Nevus, non-neoplastic Sebaceous hyperplasia Other specified disease of sebaceous gla nds documented in this encounter Care Teams Cleat Blanker Relationship Specialty Start Date End Date Aryan Wyatt MD PCP - General General Internal Medicine 10/29/[address] [address] documented as of this encounter
--- OUTSIDE RECORDS SUMMARY | 2022-02-08 17:43 | XMS_ITS | Encounter Summary ---
:1950 Author Organization [place] [address] Care Team Providers Name Role Phone Aryan Wyatt MD Primary Care Provider Encounter Details Date Type Department Care Team Description 07/23/2021 Office Visit Dermatology at [facility] angioma; Lorenzo Rizzo MD H/O Malignant melanoma; [address] [facility] Screening exam for skin canc er; [place], [place] DR Dermatofibroma; [phone] [facility] Multiple benign nevi [phone] RD-DERMATOLOGY [place], [place] [address] (Wo rk) Social History Tobacco Use Types [...] documented as of this encounter Progress Notes Tejal Hernandez MD - 07/23/2021 10:40 AM EST Images from the original note were not included. DEPARTMENT OF DERMATOLOGY Medical Dermatology Clinic Provider: Tejal Hernandez MD Patient's preferred name Elvin Preferred contact method for results [x]Phone []myD-H []Letter Detailed phone message OK? OK Are there any other people with whom we may discuss your care? N Past Medical History Date, location, treatment Melanoma Yes, Invasive Melanoma - Breslow depth 2.2 (pT3a) without ulceration, Left cheek, h/o MIS in same area few years prior, s/p Mohs with [facility] 10/29/2020, SLNB and repair with FTSG with Plastics w/olymph node tissue identified on specimen 11/19/2020 Dysplastic nevi N SCC N BCC Yes, Left nose per patient AKs N Other relevant past medical history Family History Details Melanoma N NMSC N Other relevant family history N Social History Occupation: fajardo,builder,contractor- retired Hobbies: Other: History of Present Illness: Elvin Winkler JrYamilet is a 71 y.o. Patient returns to clinic today for a 3month full skin exam. No other spots of concern. Last visit at [facility] Derm: 03/26/2021 Last visit with this provider: 03/26/2021 Medications: Reviewed in eD-H Allergies: Reviewed in [...] face, ears, neck, chest, axillae, abdomen, back, and upper and lower extremities. Genitalia and buttocks were examined. Assessment/Plan: #H/o invasive melanoma0- Breslow depth 2.2 (pT3a) without ulceration, Left cheek, h/o MIS in same area few years prior, s/p Mohs with [facility] 10/29/2020, SLNB and repair with FTSG with Plastics w/o lymph node tissue identified on specimen 11/19/2020- Well healed scar on left cheek with NER. No lymphadenopathy present on exam today -Will CTM -Recommend [id number] FBSE #. Dermatofibroma - Firm papule , centrally raised and sclerotic, with peripheral hyperpigmentation and dimpling with lateral pressure on the right inner thigh. - Discussed that these are benign fibrous (scar-like) lesions. No treatment necessary. #. Seborrheic Keratoses - Stuck on, waxy papules on the trunk and extremities. - Explained that these are hereditary and adult-acquired. Reassured patient of benign nature. No treatment necessary unless bothersome. #. Benign Nevi - Few medium brown, evenly pigmented macules and papules on the trunk and extremitieswith reassuring pigment pattern on dermoscopy. - No atypical lesions or features worrisome for malignancy. - Advised patient to watch for any new or changing lesions. Discussed changes (bleeding, pain, change in color or shape) that should prompt re-evaluation. - Will continue to monitor. #. King Angiomas - Multiple 0.2-0.4 cm bright red, well-demarcated papules on the trunk and extremities. - Discussed benign nature of lesions and provided reassurance. No treatment necessary at this time. Other: ??? N/A RTC: 3 month for FBSE []Note routed to medical office secretary []Recall placed in scheduling system [x]Appointment scheduled at checkout Scribe attestation: Joaquina Mercado has performed the documentation for this encounter in the presence of and acting as a scribe for Tejal Hernandez MD. I performed the above scribed service and agree with the accuracy of the documentation in this encounter. Reviewed and signed by: Tejal Hernandez MD Dermatology [facility] Patient seen and evaluated with staff computer terminal operator: Franchesca Savage MD Dermatology [facility] Franchesca Savage MD - 07/23/2021 10:40 AM EST I directly supervised the Dermatology resident during this office visit. The resident presented the history and physical exam to me. I then saw and examined this patient with the resident. We reviewed the history and pertinent details and I confirmed the physical findings. I agree with the details of the history and physical exam as documented in the resident's note. FRANCHESCA SAVAGE MD Staff Physician documented in this encounter Plan of Treatment Upcoming Encounters Date Type Specialty Care Team Description 04/15/2022 Office Visit Dermatology Erasto Barrett M D [facility] DR JUVENAL YOU-DERMAT [place], [place] [address] (Wo rk) documented as of this encounter Visit Diagnoses Diagnosis King angioma Nevus, non-neoplastic H/O Malignant melanoma Personal history of malignant melanoma o f skin Screening exam for skin cancer Screening for malignant neoplasm of the skin Dermatofibroma Benign neoplasm of skin, site unspecifie d Multiple benign nevi Benign neoplasm of skin, site unspecifie d documented in this encounter Care Teams Night Time Babysitter Relationship Specialty Start Date End Date Aryan Wyatt MD PCP - General General Internal Medicine 10/29/[address] [place] [address] documented as of this encounter
--- OUTSIDE RECORDS SUMMARY | 2022-02-08 17:43 | XMS_ITS | Clinical Summary ---
:1950 Author Organization [facility] [place] [address] Care Team Providers Name Role Phone Aryan Wyatt MD Primary Care Provider Allergies Active Allergy Reactions Severity Noted Date Comments Sulfa (Sulfonamide Antibiotics) Rash 1 Medications Medication Sig Dispensed Refills Start Date End Date Status amLODIPine (Norvasc) 10 TAKE 1 TABLET BY 0 1 Active mg Tablet MOUTH EVERY DAY torsemide (Demadex) 10 TAKE 1 TABLET BY 0 08/13/2020 Active mg Tablet MOUTH EVERY DAY lisinopriL TAKE 1 TABLET BY 0 08/27/2020 A ctive (Prinivil;Zestril) 40 MOUTH EVERY NIGHT mg Tablet finasteride (Proscar) 5 TAKE 1 TABLET BY 0 1 Active mg Tablet MOUTH DAILY simvastatin (Zocor) 40 Take 40 mg by 0 Active mg Tablet mouth nightly. calcium Take by mouth. 0 Activ e carbonate/vitamin D3 (VITAMIN D-3 ORAL) potassium (POTASSIMIN Take by mouth. 0 Active ORAL) glucosamine sulfate 500 Take by mouth. 0 Active mg Tablet lactobacillus Take 1 capsule by 0 Active rhamnosus, GG, mouth daily. (CULTURELLE) 10 billion cell Capsule acetaminophen (Tylenol) Take 2 tablets by 30 tablet 1 11/21/19 21 Active 325 mg Tablet mouth every 4 hours as needed for Pain. Additional Information Patient not taking. Reported on 10/22/2021 aspirin EC 81 mg Tablet, Take 1 tablet by mouth 30 tablet 0 Active Delayed Release (E.C.) daily. Active Problems Problem Noted Date Malignant melanoma 11/19/2020 Melanoma of face 11/03/2020 Immunizations Name Administration Dates Next Due Influenza PF, Split 05/19/2015 Social History Tobacco Use Types Packs/Day Years [...] Assigned at Date Recorded Not on file Last Filed Vital Signs Vital Sign Reading Time Taken Comments Blood Pressure 147/79 12/02/2020 10:55 AM EDT Pulse 80 12/02/2020 10:55 AM EDT Temperature 36.8 ??C (98.2 ??F) 12/02/2020 10:55 AM EDT Respiratory Rate 18 12/02/2020 10:55 AM EDT Oxygen Saturation 97% 12/02/2020 10:55 AM EDT Inhaled Oxygen Concentration - - Weight 103.1 kg (227 lb 6.4 oz) 10/22/2021 10:04 AM EDT Height 177.8 cm (5' 10) 10/22/2021 10:04 AM EDT Body Mass Index 32.63 10/22/2021 10:04 AM EDT Plan of Treatment Upcoming Encounters Date Type Specialty Care Team Description 04/15/2022 Office Visit Dermatology Erasto Barrett M D [facility] MEDICAL [facility] [address] JUVENAL YOU-DERMAT [place], [place] [address] (Wo rk) Health Maintenance Due Date Last Done Comments Covid-19 Vaccine (#1) 1954 Hepatitis C Screening 1967 Tdap adult 1968 Tetanus vaccine 1968 Colonoscopy 1994 Zoster vaccine (1 of 2) 1999 Pneumoccocal Vaccine: 65+ (1 - PCV) 2014 Influenza (Flu) vaccine (1 of 1 - Influenza standard 03/25/2022 05/19/2015 series) Insurance Payer Benefit Plan / Subscriber ID Effective Dates Phone Addre ss Type Group MEDICARE MEDICARE PART [id number] 2020-Cammy [phone] [place] [phone] COLONIAL MOE COLONIAL MOE [id number] 2014-Prese [address] [place] [address] Advance Directives Documents on File Type Date Recorded Patient Director Recreation Center Explanati on Personal Director Recreation Center 10/31/2020 2:00 PM Kenny Winkler Advance Directives and Living 11/20/2020 3:52 PM 03/12/11 Will Latest Code Status on File Code Status Date Activated Date Inactivated Comments Attempt Cardiopulmonary Resuscitation - 11/19/2020 7:10 PM 021 12:50 PM Inpatient Code Status decision made by: Patient Healthcare Agents on File Name Relationship Healthcare Agent Relationship Co mmunication Eduardo Winkler Child Health Care Agent [phone] ( Mobile) Care Teams Motor Pool Clerk Relationship Specialty Start Date End Date Aryan Wyatt MD PCP - General General Internal Medicine 10/29/20 [address] [place] [address]
--- OUTSIDE RECORDS SUMMARY | 2022-02-08 17:43 | XMS_ITS | Encounter Summary ---
:1950 Author Organization [facility] Address [address] [place] [address] Care Team Providers Name Role Phone Jem Villagomez MD Primary Care Provider Encounter Details Date Type Department Care Team Description 07/23/2015 Results Only [facility]- PRISM Chaparro Conway MD [phone] [address] [place], [place] [phone] (Wo rk) Social History Tobacco Use Types Packs/Day Years Used Date Never Assessed Sex Assigned at Date Recorded Not on file documented as of this encounter Plan of Treatment Not on filedocumented as of this encounter Procedures Procedure Name Priority Date/Time Associated Diagnosis Comme nts SURGICAL PATHOLOGY Routine 07/23/2015 10:07 Resul ts for this EST procedure are i n the results section. documented in this encounter Results SURGICAL PATHOLOGY (07/23/2015 10:07 EST) Pathology Report: SURGICAL PATHOLOGY REPORT [facility] Reports generated via electronic interface contain gissel ginal data; LABORATORY however they are lacking the format of the original re port. SERVICES Caution should be taken when reading/interpreting unfo rmatted reports. Name: ? REJI ESCUDEROKAMERON ? Accession #: ? [id number] ? : ? 1950 (Age: 65) ??M ? Collect Date: ? 07/23/2015 ? Location: ? [facility] ? Receive Date: ? 015 ? Provider: CHAPARRO CONWAY MD Copy to: IVON MERCER MD ? Final Pathologic Diagnosis: RECTOSIGMOID COLON, POLYP, BIOPSIES: - ??Fragments of tubular adenoma. Document reviewed and electronically signed by: JACKY MELO MD Report ??Date: 07/28/2015 10:44 By the signature above, the attending physician certif ies that he/she has personally conducted a gross and/or microscopic examin ation of the described specimens and rendered or confirmed the above diagnosi s. Specimen(s) Received: Rectosigmoid polyp Clinical History: Screening Gross Description: ? Received in formalin labelled with proper patient identification (initials A, S) and rectal sigmoid po lyp are three pink-tovar tissues (0.2 x 0.1 x 0.1 cm to 0.4 x 0.3 x 0.2 cm). Entirely submitted in block 1. Brisa Yee 07/24/2015 10:35 AM End of Report Specimen Performing Organization Address City/State/ZIP Code Phon e Number [facility] [address] [place] [address] SERVICES documented in this encounter Visit Diagnoses Not on filedocumented in this encounter Care Teams De Icer Installer Relationship Specialty Start Date End Date Jem Villagomez MD PCP - General 01/16/[address] [place] [address] [place], [place] [id number] documented as of this encounter
--- OUTSIDE RECORDS SUMMARY | 2022-02-08 17:43 | XMS_ITS | Encounter Summary ---
:1950 Author Organization [facility] [place] [address] Care Team Providers Name Role Phone Aryan Wyatt MD Primary Care Provider Encounter Details Date Type Department Care Team Description 02/10/2021 Telephone Dermatology at [facility] diogenes Aviles, Antionette Duran MD [address] [facility] [address] [place] [address] DERMATOLOGY [phone] [place], [place] [address] (Wo rk) Social History Tobacco Use Types [...] this encounter Miscellaneous Notes Telephone Encounter - Lucy Mckeon - 02/10/2021 9:50 AM EDT I contacted patient today to offer sooner visit with Dr. Aviles in [place]. I was unable to speak w/ anyone when I called, but I was able to leave a detailed message and [phone] for call back. Patient can be rescheduled for anytime on 03/11 for a 20m appointment. documented in this encounter Plan of Treatment Upcoming Encounters Date Type Specialty Care Team Description 04/15/2022 Office Visit Dermatology Erasto Barrett M D [facility] MEDICAL [facility] ER DR JUVENAL YOU-DERMAT [place], [place] [address] (Wo rk) documented as of this encounter Visit Diagnoses Not on filedocumented in this encounter Care Teams Director Of Public Safety Relationship Specialty Start Date End Date Aryan Wyatt MD PCP - General General Internal Medicine 10/29/[address] [place] [id number] documented as of this encounter
--- OUTSIDE RECORDS SUMMARY | 2022-02-08 17:43 | XMS_ITS | Encounter Summary ---
:1950 Author Organization [facility] [place] [address] Care Team Providers Name Role Phone Aryan Wyatt MD Primary Care Provider Encounter Details Date Type Department Care Team Description 03/26/2021 Office Visit [facility]ol[facility]ology at [facility] Lucas Saavedra Melanoma of face [facility] [place] [address] [facility] [phone] OTOLARYNGOLOGY DEPT. [place], [place] [address] Social History Tobacco Use Types [...] - Inhaled Oxygen Concentration - - Weight 93.4 kg (206 lb) 03/26/2021 8:24 AM EDT Height 175.3 cm (5' 9) 03/26/2021 8:24 AM EDT Body Mass Index 30.42 03/26/2021 8:24 AM EDT documented in this encounter Progress Notes Lucas Saavedra MD - 03/26/2021 8:40 AM EDT Images from the original note were not included. Subjective: Patient ID: Elvin Winkler Jr. is a 70 y.o. male. HPI He is seen in follow up of his left cheek melanoma. Date Presented melanoma TB: 12/09/2020 Presenting Physician: Keri Diagnosis/Tumor Site: Invasive melanoma of the left [...] and dermatology Doing well since last visit December 2020. Reports feeling great. Feels great since last visit as the cheek wound appearance is much improved. Very pleased. Denies new concerning lesion on face and denies neck mass No past medical history on file. Past Surgical History: Procedure Laterality Date ? ? PRO ADJ TISS XFER HEAD, FAC, HAND <10SQCM Left 11/19/2020 ADJ.TISSUE TRANSFER, REARRANGEMENT, 10SQ.CM OR LESS, CHEEK (WRVU 8.6) performed by Blaze Saavedra MD at [facility] MAIN OR ??? PRO BX/REMV, LYMPH NODE, DEEP CERV Left 11/19/2020 BIOPSY OR EXCISION OF LYMPH NODE(S), OPEN, DEEP CERVICAL NODES (WRVU 6.74) performed by Lucas Saavedra MD at [facility] MAIN OR ? ? PRO FULL THICK GRFT NOS, EAR, LID <20SQCM 11/19/2020 FULL THICKNESS GRAFT,FREE, W/ DIRECT CLOSURE DONOR SITE, 20SQ CM OR LESS, EYELIDS (WRVU 11.64) performed by Lucas Saavedra MD at [facility] MAIN OR Patient Active Problem List Diagnosis Code ??? 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 Malignant melanoma C43.9 Current Outpatient Medications: ??? aspirin EC 81 mg Tablet, Delayed Release (E.C.), Take 1 tablet by mouth daily., Disp: 30 tablet,Rfl: 0 ??? glucosamine sulfate 500 mg Tablet, Take by mouth., Disp: , Rfl: ??? amLODIPine (Norvasc) 10 [...] hours as needed for Pain.(Patient not taking: Reported on 03/26/2021), Disp: 30 tablet, Rfl: 1 ??? lactobacillus rhamnosus, GG, (CULTURELLE) 10 billion cell Capsule, Take 1 capsule by mouth daily., Disp: , Rfl: Allergies Allergen Reactions ??? Sulfa (Sulfonamide Antibiotics) [...] Social Determinants of Health Financial Resource Strain: ??? Difficulty of Paying Living Expenses: Not on file Food Insecurity: ??? Worried About Running Out of Food in the Last Year: Not on file ??? Ran Out of Food in the Last Year: Not on file Transportation Needs: ??? Lack of Transportation (Medical): Not on file ??? Lack of Transportation (Non-Medical): Not on file Physical Activity: ??? Days of Exercise per Week: Not on file ??? Minutes of Exercise per Session: Not on file Review of Systems Objective: Physical Exam Vitals [...] Doing well. Discussed need for continued follow ups. Not interested in revision surgery See 6 mo documented in this encounter Plan of Treatment Upcoming Encounters Date Type Specialty Care Team Description 04/15/2022 Office Visit Dermatology Erasto Barrett M D [facility] DR JUVENAL YOU-DERMAT [place], [place] [address] (Wo rk) documented as of this encounter Visit Diagnoses Diagnosis Melanoma of face Malignant melanoma of skin of other and unspecified parts of face documented in this encounter Care Teams Home Service Demonstrator Relationship Specialty Start Date End Date Aryan Wyatt MD PCP - General General Internal Medicine 10/29/[address] [place] [address] documented as of this encounter
--- OUTSIDE RECORDS SUMMARY | 2022-02-08 17:43 | XMS_ITS | Encounter Summary ---
:[address] [facility] Address [address] [place] [address] Care Team Providers Name Role Phone Unavailable Primary Care Provider Unavailable Encounter Details Date Type Department Care Team Description 01/10/2015 Results Only [facility] Jem Pickett MD [phone] [address] [place], [place] [address] (Wo rk) Social History Tobacco Use Types Packs/Day Years Used Date Never Assessed Sex Assigned at Date Recorded Not on file documented as of this encounter Plan of Treatment Not on filedocumented as of this encounter Procedures Procedure Name Priority Date/Time Associated Diagnosis Comme [facility] SURGICAL PATHOLOGY Routine 01/10/2015 9:09 EDT Re sults for this procedure are i n the results section. documented in this encounter Results SURGICAL PATHOLOGY (01/10/2015 9:09 EDT) Pathology SURGICAL PATHOLOGY REPORT [facility] MEDICAL Report: Reports generated via electronic interface conta in original data; CENTER however they are lacking the format of the original re port. LABORATORY Caution should be taken when reading/interpretin g unformatted reports. SERVICES Name: ? PHIL WINKLER ? Accession #: ? [id number] ? : ? 1950 (Age: 64) ??M ? Collect Date: ? 01/10/2015 ? Location: ? [facility] ? Receive Date: ? 01/15/20 15 ? Provider: JEM CHANCE MD Copy to: ??[facility] [address] [place] [address] ? Final Pathologic Diagnosis: SKIN OF NOSE, LEFT SIDE, SHAVE BIOPSY: - Actinic keratosis. Microscopic Description: The stratum corneum is thickened by orthohyperkeratosi s with foci of parakeratosis. ??The epidermis is focally thicke oralia with elongate and bulbous rete ridges. ??The basal ker atinocytes show a variable degree of atypia including nuclear enlargement, dispola rity, and hyperchromasia. ??The dermis is marked by solar elastosis, vascular ectasia and a lymphohistiocy tic infiltrate. ??(Dr. Guerrero)/n Document reviewed and electronically signed by: STUART GUERRERO MD Report ??Date: 01/15/2015 16:21 By the signature above, the attending physician certif ies that he/she has personally conducted a gross and/or microscopic examin ation of the described specimens and rendered or confirmed the above diagnosi s. Specimen(s) Received: Shave biopsy L side of nose Clinical History: Actinic keratosis L nose Gross Description: ? Received in formalin labelled with proper patient identification (initials A, S) and left side of nose is a shave biopsy of a tovar-saldaña papule (0.7 x 0.4 x 0.1 cm). ??The specimen is trisected and entirely castle bmitted in 1. Cruzito Zavala 01/14/2015 12:22 PM End of Report Specimen Performing Organization Address City/State/ZIP Code Phon e Number [facility] [address] [place] [address] SERVICES documented in this encounter Visit Diagnoses Not on filedocumented in this encounter
--- OUTSIDE RECORDS SUMMARY | 2022-02-08 17:43 | XMS_ITS | Encounter Summary ---
:1950 Author Organization [facility] [place] [address] Care Team Providers Name Role Phone Aryan Wyatt MD Primary Care Provider Encounter Details Date Type Department Care Team Description 03/26/2021 Office Visit Dermatology at [facility] ct[facility] keratosis; Lorenzo Rizzo MD Screening exam for skin cancer; [address] [facility] Dermatofibroma; [place], [place] DR King angioma; [address] [facility] H/O Malignant melanoma [phone] RD-DERMATOLOGY [place], [place] [address] (Wo rk) Social History Tobacco [...] encounter Progress Notes Tejal Hernandez MD - 03/26/2021 10:40 AM EDT Images from the original note were not included. DEPARTMENT OF DERMATOLOGY Medical Dermatology Clinic Provider: Tejal Hernandez MD Patient's preferred name Elvin Preferred contact method for results []Phone []myD-H []Letter Detailed phone message OK? * Are there any other people with whom [...] relevant family history N Social History Occupation: Hobbies: Other: History of Present Illness: Elvin Winkler Jr. is a 70 y.o. Patient returns to clinic today for a 3month full skin exam. He is concerned with little spots on his arm. . No other spots of concern Last visit at [facility] Derm: Visit date not found Last visit with this provider: Visit date [...] and lower extremities. Genitalia and buttocks were not examined. Assessment/Plan #H/o invasive melanoma0- Breslow depth 2.2 (pT3a) without ulceration, Left cheek, h/o MIS in same area few years prior, s/p Mohs with [facility] 10/29/2020, SLNB and repair with FTSG with Plastics w/o lymph node tissue identified on specimen 11/19/2020- Well healed scar on left cheek with NER -Will CTM -Recommend [id number] FBSE # Actinic Keratosis -0.2-0.3cm scaly irregular pink papule(s) on the left arm X 2 and right arm X 1 - Discussed the natural history and etiology of actinic keratoses including the premalignant potential of these lesions. -Discussed treatment options. Procedure Note: Procedure: Destruction of lesion(s) with cryotherapy. Number: 3 Location: as above Discussed procedure and expectations including risks (including risk of hypopigmentation) and benefits. Verbal consent obtained. Frozen with LN2, 15-30 second thaw time, TWICE. There were no complications; the patient tolerated the procedure well. Post-procedure expectations and wound care were reviewed. #Dermatofibroma- 4mm brown macule on the right posterior thigh with stellate appearence on dermoscopy Counseled: Dermatofibromas, benign/non-cancerous growth of dermal dendritic histiocyte cells, commonly arise at site of a minor injury and etiology is unknown, prognosis, treatment options if recurs and/or is symptomatic. .#. 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 N/A RTC: 3 month for FBSE [x]Note routed to clinical secretary []Recall placed in scheduling system []Appointment scheduled at checkout Scribe attestation: Lizzeth Cruz LPN has performed the documentation for this encounter in the presence of and acting as a scribe for Tejal Hernandez MD. I performed the above scribed service and agree with the accuracy of the documentation in this encounter. Reviewed and signed by: Tejal Hernandez MD Dermatology [facility] Patient seen and evaluated with staff central sterile supply technician: Zuleika Fermin MD Dermatology [facility] Zuleika Fermin MD - 03/26/2021 10:40 AM EDT I directly supervised Dr. Hernandez during this office visit. Dr. Hernandez presented the history and physical exam to me. I, then, saw and examined this patient with Dr. Hernandez. We reviewed the history and pertinent details and I confirmed the physical findings. I agree with the details of the history and physical exam as documented in Dr. Hernandez's note. ZULEIKA FERMIN MD Staff Physician documented in this encounter Plan of Treatment Upcoming Encounters Date Type Specialty Care Team Description 04/15/2022 Office Visit Dermatology Erasto Barrett M D [facility] DR JUVENAL YOU-DERMAT [place], [place] [address] (Wo rk) documented as of this encounter Visit Diagnoses Diagnosis Actinic keratosis Screening exam for skin cancer Screening for malignant neoplasm of the skin Dermatofibroma Benign neoplasm of skin, site unspecifie d King angioma Nevus, non-neoplastic H/O Malignant melanoma Personal history of malignant melanoma o f skin documented in this encounter Care Teams Sludge Filtration Attendant Relationship Specialty Start Date End Date Aryan Wyatt MD PCP - General General Internal Medicine 10/29/[address] [place] [id number] documented as of this encounter
--- OUTSIDE RECORDS SUMMARY | 2022-02-08 17:43 | XMS_ITS | Encounter Summary ---
:1950 Author Organization [facility] Address [address] [place] [address] Care Team Providers Name Role Phone Jem Villagomez MD Primary Care Provider Encounter Details Date Type Department Care Team Description 09/01/2020 Lab Requisition [facility] Aryan Wyatt for other Pathology & E, general examination Laboratory Medicine - [address] [place], [place] [address] [facility] [id number] [place] [id number] Social History Tobacco Use Types Packs/Day Years Used Date Never Assessed Sex Assigned at Date Recorded Not on file documented as of this encounter Plan of Treatment Not on filedocumented as of this encounter Procedures Procedure Name Priority Date/Time Associated Diagnosis Comme nts SURGICAL PATHOLOGY Today 08/29/2020 15:20 Encounter for othe r Results for this EST general examination procedur e are in the results section. documented in this encounter Results SURGICAL PATHOLOGY (08/29/2020 15:20 EST) Final Diagnosis A. SKIN OF CHEEK, LEFT, PUNCH BIOPSY: [facility] - Melanoma in situ, involvin g peripheral edges. See comment and synoptic report. [facility] Diagnosis Comment The punch biopsy shows an at ypical intraepidermal melanocytic proliferation. Cytologically atypical melanocytes are seen showing confluent growth, adnexal extension and pagetoid migration. The lesion ex [facility] tends to peripheral edges of the punch biopsy. Correlation with clinical size is necessary as the punch biopsy may be a sampling of a larger lesion and may not be pharmacy sales representative of the lesion as a whole CENTER . Waste/Materials Exchange Specialist slides of t his case were reviewed at the intradepartmental consultation conference. LABORATORY SERVICES Attestation By the signature below, [facility] Elec tronically the attending physician CENTER sign ed by Derrick, certifies that they LABORATORY Rena Carbajal MD on have 1) personally SERVICES 09/02/2020 at 1228 conducted a gross and/or microscopic examination of the described specimen(s), and/or personally interpreted the results of laboratory testing of the described specimen(s), and 2) personally rendered or confirmed the above diagnosis. Synoptic MELANOMA OF THE SKIN: Biopsy ??(MELANOMA OF THE SKIN: BIOPSY - All Specimens) [facility] LABORATORY SERVICES SPECIMEN ?? Procedure: ?Biopsy, punch ?? Specimen Laterality: ?Left TUMOR ?? Tumor Site: ?Skin of other and unspecified par ts of face ?? Histologic Type: ?Superficial spreading melano ma in situ ?? Ulceration: ?Not identified ?? Accessory Findings: ? Tumor Regression: ?Not identified ?? MARGINS: ? Peripheral Margins: ?Involved by melanoma i n situ ? Deep Margin: ?Uninvolved by melanoma in sit u ?? PATHOLOGIC STAGE CLASSIFICATION (pTNM, AJCC 8th Ed ition): ? Primary Tumor (pT): ?pTis Clinical History 6 mm indistinct [facility] indurated area adjacent CENTER to prior area of LABORATORY BCC/skin graft; 3 mm SERVICES punch attempted, tissue very friable, poor sample Gross Description [facility] MEDICAL Received in formalin gloria d with proper patient identification (initials A, S) and left cheek is a punch biopsy of saldaña skin (0.3 cm in diameter by 0.2 cm in thickness). The specimen is submitted intact in A1. [facility] KHADIJAH CROOK(ASCP) 09/01/2020 16:43 SERV ICES Performing Lab [facility] HOSPITAL LAB [facility] LABORATORY SERVICES Scanned Images [facility] LABORATORY SERVICES Specimen Tissue - Skin (tissue) specimen (specime n) Performing Organization Address City/State/ZIP Code Phon e Number [facility] [address] [place] [address] SERVICES documented in this encounter Visit Diagnoses Diagnosis Encounter for other general examination documented in this encounter Care Teams Mri Technician Relationship Specialty Start Date End Date Jem Villagomez MD PCP - General 01/16/[address] [place] [address] [place] [address] documented as of this encounter
--- OUTSIDE RECORDS SUMMARY | 2022-02-08 17:43 | XMS_ITS | Encounter Summary ---
:1950 Author Organization [place] [address] Care Team Providers Name Role Phone Aryan Wyatt MD Primary Care Provider Encounter Details Date Type Department Care Team Description 01/08/2021 Office Visit Otolaryngology at [facility] Lucas Saavedra Melanoma of face [facility] [place] [address] [place] [address] OT[address] DEPT[address] [place], [place] [address] Social History Tobacco Use Types [...] - Inhaled Oxygen Concentration - - Weight 101.3 kg (223 lb 4.8 oz) 01/08/2021 10:37 AM EDT Height 172.7 cm (5' 8) 01/08/2021 10:37 AM EDT Body Mass Index 33.95 01/08/2021 10:37 AM EDT documented in this encounter Progress Notes Lucas Saavedra MD - 01/08/2021 11:00 AM EDT Images from the original note [...] ENT and dermatology Doing well since last visit. Met earlier with Dr Bass in dermatology and a lesion on the left yarsani was bx'd. Reports feeling great. Concern of thickness of FTSG area, and ?retained sutures in neck incisions. Denies pain. No issue with facial nerve function. No past medical history on file. Past Surgical History: Procedure Laterality Date ? ? PRO ADJ TISS XFER HEAD, FAC, HAND <10SQCM Left 11/19/2020 ADJ.TISSUE TRANSFER, REARRANGEMENT, 10SQ.CM OR LESS, CHEEK (WRVU 8.6) performed by Blaze Saavedra MD at [facility] MAIN OR ??? PRO BX/REMV, LYMPH NODE, DEEP CERV Left 11/19/2020 BIOPSY OR EXCISION OF LYMPH NODE(S), OPEN, DEEP CERVICAL NODES (WRVU 6.74) performed by Lucas Saavedra MD at [facility] MAIN OR ? ? PRO FULL THICK GRFT NOS, EAR, LID <20SQCM 11/19/2020 FULL THICKNESS GRAFT,FREE, W/ DIRECT CLOSURE DONOR SITE, 20SQ CM OR LESS, EYELIDS (WRVU 11.64) performed by Lucas Saavedra MD at [facility] MAIN OR Patient Active Problem List Diagnosis Code ??? 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 Malignant melanoma C43.9 Current Outpatient Medications: ??? acetaminophen (Tylenol) 325 mg Tablet, Take 2 tablets by mouth every 4 hours as needed for Pain., Disp: 30 tablet, Rfl: 1 ??? aspirin EC 81 mg Tablet, Delayed [...] ORAL), Take by mouth., Disp: , Rfl: Allergies Allergen Reactions ??? [...] Strain: ??? Difficulty of Paying Living Expenses: Food Insecurity: ??? Worried About Running Out of Food in the Last Year: ??? Ran Out of Food in the Last Year: Transportation Needs: ??? Lack of Transportation (Medical): ??? Lack of Transportation (Non-Medical): Physical Activity: ??? Days of Exercise per Week: ??? Minutes of Exercise per Session: Review of Systems Objective: Physical Exam Vitals [...] well. Discussed need for continued follow ups. Will need revision surgery in about 6-12 months. Recommend massage area See 3 mo documented in this encounter Plan of Treatment Upcoming Encounters Date Type Specialty Care Team Description 04/15/2022 Office Visit Dermatology Erasto Barrett M D [facility] [address] JUVENAL YOU[place]DERMAT [place], [place] [address] (Wo rk) documented as of this encounter Visit Diagnoses Diagnosis Melanoma of face Malignant melanoma of skin of other and unspecified parts of face documented in this encounter Care Teams Community Leader Relationship Specialty Start Date End Date Aryan Wyatt MD PCP - General General Internal Medicine 10/29/[address] [place] [id number] documented as of this encounter
--- OUTSIDE RECORDS SUMMARY | 2022-02-08 17:43 | XMS_ITS | Encounter Summary ---
:1950 Author Organization [facility] [place] [address] Care Team Providers Name Role Phone Aryan Wyatt MD Primary Care Provider Encounter Details Date Type Department Care Team Description 01/12/2021 Telephone Otolaryngology at [facility] [place] [address] Social History Tobacco Use Types Packs/Day [...] Notes Telephone Encounter - Jennifer Alfaro - 01/12/2021 12:16 PM EDT Called pt to schedule 3 mon fuv OV with BG. LVM asking pt to call back. documented in this encounter Plan of Treatment Upcoming Encounters Date Type Specialty Care Team Description 04/15/2022 Office Visit Dermatology Erasto Barrett M D [facility] DR JUVENAL YOU[place]DERMAT [place], [place] [address] (Wo rk) documented as of this encounter Visit Diagnoses Not on filedocumented in this encounter Care Teams Communication Coordinator Relationship Specialty Start Date End Date Aryan Wyatt MD PCP - General General Internal Medicine 10/29/[address] [place] [id number] documented as of this encounter
--- OUTSIDE RECORDS SUMMARY | 2022-02-08 17:43 | XMS_ITS | Encounter Summary ---
:1950 Author Organization [facility] Address [address] [place] [address] Care Team Providers Name Role Phone Unavailable Primary Care Provider Unavailable Encounter Details Date Type Department Care Team Description 01/10/2015 Hospital Encounter [facility] Unknown, Provider, [facility] [address] [facility] [phone] [place] [address] (Work) [phone] Social History Tobacco Use Types Packs/Day Years Used Date Never Assessed Sex Assigned at Date Recorded Not on file documented as of this encounter Discharge Disposition Disposition Code Departure Means Destination Home or Self Half-Way documented in this encounter Plan of Treatment Not on filedocumented as of this encounter Visit Diagnoses Not on filedocumented in this encounter
--- OUTSIDE RECORDS SUMMARY | 2022-02-08 17:43 | XMS_ITS | Encounter Summary ---
:1950 Author Organization [facility] [place] [address] Care Team Providers Name Role Phone Aryan Wyatt MD Primary Care Provider Reason for Visit Auth/Cert Specialty Diagnoses / Procedures Referred By Contact Refer red To Contact Diagnoses Malignant melanoma Melanoma Procedures PRO BX/REMV, LYMPH NODE, DEEP CERV PRO ADJ TISS XFER HEAD, FAC, HAND 10.1-30 BIOPSY OR EXCISION OF LYMPH NODE(S), OPEN, DEEP CERVICAL NODES (WRVU 6.74) ADJ.TISSUE TRANSFER, REARRANGEMENT, 10.1 TO 30 SQ.CM, NECK (WRVU 10.83) Referral ID Status Reason Start Date Expiration Date Visits Requ ested Visits Authorized [id number] 1 1 Encounter Details Date Type Department Care Team Description 11/19/2020 Hospital Encounter Nuclear Medicine at [facility], Rox Restrepo MD [place] [address] OTOLARYNGOLOGY DEPT. [phone] [place], [place] [address] (Wo rk) Social History Tobacco [...] on file documented as of this encounter Medications at Time of Discharge Medication Sig Dispensed Refills Start Date End Date aspirin EC 81 mg Tablet, Take 1 tablet by 30 tablet 0 11/21 Delayed Release (E.C.) mouth daily. glucosamine sulfate 500 mg Take by mouth. 0 Tablet lactobacillus rhamnosus, Take 1 capsule by 0 GG, (CULTURELLE) 10 mouth daily. billion cell Capsule amLODIPine (Norvasc) 10 mg TAKE 1 TABLET BY 0 09/2020 Tablet MOUTH EVERY DAY torsemide (Demadex) 10 mg TAKE 1 TABLET BY 0 /2 Tablet MOUTH EVERY DAY lisinopriL TAKE 1 TABLET BY 0 08/27/2020 (Prinivil;Zestril) 40 mg MOUTH EVERY NIGHT Tablet simvastatin (Zocor) 40 mg Take 40 mg by mouth 0 Tablet nightly. calcium carbonate/vitamin Take by mouth. 0 D3 (VITAMIN D-3 ORAL) potassium (POTASSIMIN Take by mouth. 0 ORAL) acetaminophen (Tylenol) Take 2 tablets by 30 tablet 1 11/20 325 mg Tablet mouth every 4 hours as needed for Pain. finasteride (Proscar) 5 mg TAKE 1 TABLET BY 0 09/2020 Tablet MOUTH DAILY aspirin EC 81 mg Tablet, Take 81 mg by mouth 0 11/20/2020 Delayed Release (E.C.) daily. documented as of this encounter Plan of Treatment Upcoming Encounters Date Type Specialty Care Team Description 04/15/2022 Office Visit Dermatology Erasto Barrett M D [facility] DR JUVENAL YOU-DERMAT [place], [place] [address] (Wo rk) documented as of this encounter Procedures Procedure Name Priority Date/Time Associated Comments Diagnosis NM LYMPHOSCINTIGRAPHY WITH Routine 11/19/2020 10:40 Melanoma o f face Results for this IMAGING MELANOMA OR SKIN AM EDT pro cedure are in CANCER the results section. documented in this encounter Results NM Lymphoscintigraphy w Imaging Melanoma or Skin Cancer (11/19/2020 10:40 AM EDT) Anatomical Region Laterality Modality Nuclear Medicine Specimen (Source) Anatomical Location Collection Method / Collectio n Time Received Time / Laterality Volume Impressions 11/19/2020 12:05 PM EDT [place] lymph nodes in the left neck as described above. I have personally reviewed the image(s) and the resident's interpretation and agree with the findings, Solomon Garcia at 11/19/2020 12:05 PM Thank you for letting us participate in the care of this patient. ??If you are a health care provider and have any questi ons regarding this report, please contact the number below. ??For patients who have questions please contact the health continuum of care manager that requested your imaging first. ? Narrative 11/19/2020 12:05 PM EDT EXAMINATION: NM LYMPHOSCINTIGRAPHY W IMAGING MELANOMA OR SKIN CANCER CLINICAL HISTORY: 70-year-old male statu s post excision of melanoma of the left cheek. ??Evaluate for sentinel nodes for SLNB TECHNIQUE: Technetium-99m filtered sulfur colloid w as administered intradermally in divided doses totaling 1.8 mCi at the site of th e lesion in the left cheek. Images of the head and neck were subsequently obta ined in the axial, coronal, and sagittal projections approximately 30-60 minutes post injection. COMPARISON: None FINDINGS: Injection site is noted in the left mabel k. Multiple foci of julissa tracer deposition in the left neck levels 1B th rough 4, and in the left supraclavicular region. Procedure Note Yusef Woods MD - 11/19/2020Formatti ng of this note might be different from the original. EXAMINATION: NM LYMPHOSCINTIGRAPHY W IRMA GING MELANOMA OR SKIN CANCER CLINICAL HISTORY: 70-year-old male statu s post excision of melanoma of the left cheek. Evaluate for sentinel nodes for S LNB TECHNIQUE: Technetium-99m filtered sulfur colloid w as administered intradermally in divided doses totaling 1.8 mCi at the site of th e lesion in the left cheek. Images of the head and neck were subsequently obta ined in the axial, coronal, and sagittal projections approximately 30-60 minutes post injection. COMPARISON: None FINDINGS: Injection site is noted in the left mabel k. Multiple foci of julissa tracer deposition in the left neck levels 1B th rough 4, and in the left supraclavicular region. IMPRESSION [place] lymph nodes in the left neck as described above. I have personally reviewed the image(s) and the resident's interpretation and agree with the findings, Solomon Garcia at 11/19/2020 12:05 PM Thank you for letting us participate in the care of this patient. If you are a health care provider and have any questi ons regarding this report, please contact the number below. For patients w ho have questions please contact the health continuum of care manager that requested your imaging first. Lucas Saavedra MD IM NM ORDERABLES documented in this encounter Visit Diagnoses Not on filedocumented in this encounter Care Teams Hadoop Developer Relationship Specialty Start Date End Date Aryan Wyatt MD PCP - General General Internal Medicine 10/29/[address] [place] [id number] documented as of this encounter
--- OUTSIDE RECORDS SUMMARY | 2022-02-08 17:43 | XMS_ITS | Encounter Summary ---
:1950 Author Organization [facility] [place] [address] Care Team Providers Name Role Phone Aryan [...] Expiration Date Visits Requ ested Visits Authorized [id number] 1 1 Encounter Details Date Type Department Care Team Description 11/19[facility]2020 [facility]2020 [facility] Cristy Mirza MD [facility] [address] [place] [id number] DEPT. [phone] [place], [place] [address] Social History Tobacco Use Types [...] Sign Reading Time Taken Comments Blood Pressure 119/68 11/20/2020 7:35 AM EDT Pulse 78 11/19/2020 7:45 PM EDT Temperature 36.7 ??C (98.1 ??F) 11/20/2020 7:35 AM EDT Respiratory Rate 16 11/20/2020 7:35 AM EDT Oxygen Saturation 93% 11/20/2020 7:35 AM EDT Inhaled Oxygen Concentration - - Weight 99.8 kg (220 lb) 11/19/2020 1:45 PM EDT Height 177.8 cm (5' 10) 11/19/2020 1:45 PM EDT Body Mass Index 31.57 11/19/2020 1:45 PM EDT documented in this encounter Discharge Summaries Mildred Champion PA - 11/20/2020 7:11 AM EDT OTOLARYNGOLOGY - HEAD & NECK SURGERY DISCHARGE SUMMARY General Info Patient Name: Elvin Winkler Jr. Patient Age: 70 y.o. Birthdate: 1950 Admit date: 11/19/2020 Discharge date: 11/20/20 Attending Physician: Tiffanie Saavedra MD Admission Info Diagnoses: Melanoma of left malar region s/p Moh's excision Operations/Major Procedures: Procedure(s) (LRB): BIOPSY OR EXCISION OF LYMPH NODE(S), OPEN, DEEP CERVICAL NODES (WRVU 6.74) (Left) ADJ.TISSUE TRANSFER, REARRANGEMENT, 10SQ.CM OR LESS, CHEEK (WRVU 8.6) (Left) FULL THICKNESS GRAFT,FREE, W/ DIRECT CLOSURE DONOR SITE, 20SQ CM OR LESS, EYELIDS (WRVU 11.64) History of Presentation: The below history was copied from Dr. Saavedra on 11/03 Pathology: A. Left cheek, Moh's excision (debulk specimen): - Invasive melanoma, Breslow depth 2.2 mm (pT3a), without ulceration - 9 mitoses/mm2 - Nonbrisk TILs - Negative for lymphovascular or perineural invasion - Negative for regression I was asked to see this patient regarding a new diagnosis of melanoma summarized above by the pathology. The patient had presented with the lesion in his left malar region in 2011 and underwent the resection followed by a skin graft and had no particular problems overall. On a recent physical exam done by his primary care physician, he was noted to have an area of induration in his prior surgical site and a shave biopsy showed melanoma in situ. The patient was subsequently referred to forMohs micrographic Surgery which was done last week. I had a chance to discuss the findings as well as the extent of the surgery with Dr Bass and clinical photographs are on this patient's chart. ?? Due to the final pathology which showed actually that this was invasive melanoma, the patient was referred for more urgent management especially for planning a sentinel lymph node biopsy. The patient and his son are also concerned as to whether the surgical defect could be reconstructed on the same day. I am told that his Mohs surgery managed to completely clear the melanoma of concern. ?? Measurements of the defect is 3.3 x 3.6 cm. ?? Currently the patient denies any pain. He is following the dressing instructions that were given to him in dermatology. There is no active bleeding. There has been scant drainage of some bloody tinged fluid. He has not developed any fevers or chills. Patient does take aspirin on a daily basis. He is not taking any other anticoagulants. He does not bruise easily. ?? Past medical history otherwise significant for hypertension and hypercholesterolemia. He has had also basal cell cancers removed. Reason for Admission: Observation Hospital Course: The patient tolerated the above procedure well and was admitted post-operatively for routine care. His hospital course was uncomplicated and he was deemed medically stable for discharge home at 1 DayPost-Op. Prior to discharge his pain was controlled on oral pain meds and he was tolerating a Regular diet. During his hospitalization, PT/OT and Speech were consulted. Physical Exam on Discharge: General: NAD, non-ill appearing Face: Symmetric without dysmorphic features. Left cheek with bolster dressing intact, no drainage. Eyes: EOMI, conjunctiva healthy Ears: Auricles symmetric, no lesions Nose: Patent nares, grossly normal appearance Oral Cavity/Pharynx: Mucosa is pink Neck: Soft, trachea midline. Two incisions with sutures, intact, without drainage. Chest: Unlabored breathing. Left upper chest harvest site covered with dressing. Neuro: Alert & oriented, moving extremities x 4 Lab Data: No results for input(s): WBC, HGB, HCT, PLATELET, PT, INR, PTT, NA, K, CL, CO2, BUN, CREATININE, GLUCOSE, CALCIUM, MAGNESIUM, PHOS in the last 72 hours. Imaging and Other Studies: NM Lymphoscintigraphy w Imaging Melanoma or Skin Cancer Result Date: 11/19/2020 EXAMINATION: NM LYMPHOSCINTIGRAPHY W IMAGING MELANOMA OR SKIN CANCER CLINICAL HISTORY: 70-year-old male status post excision of melanoma of the left cheek. Evaluate for sentinel nodes for SLNB TECHNIQUE: Technetium-99m filtered sulfur colloid was administered intradermally in divided doses totaling 1.8 mCi at the site of the lesion in the left cheek. Images of the head and neck were subsequently obtained in the axial, coronal, and sagittal projections approximately 30-60 minutes post injection. COMPARISON: None FINDINGS: Injection site is noted in the left cheek. Multiple foci of julissa tracer deposition in the left neck levels 1B through 4, and in the left supraclavicular region. [place] lymph nodes in the left neck as described above. I have personally reviewed the image(s) and the resident's interpretation and agree with the findings, Yusef Woods MD at 11/19/2020 12:05 PM Thank you for letting us participate in the care of this patient. If you are a health care provider and have any questions regarding this report, please contact the number below. For patients who have questions please contact the health critical care unit nurse that requested your imaging first. Electronically signed by: Yusef Woods MD, [facility] ([phone]), at 11/19/2020 12:05 PM Discharge Info Discharge Condition: Stable Discharge to: Home Discharge Medications: Your Medications New Medications Dose Details acetaminophen 325 mg Tab Commonly known as: Tylenol Take 2 tablets by mouth every 4 hours as needed for Pain. 650 mg Quantity: 30 tablet Refills: 1 Continued medications, unchanged Dose Details amLODIPine 10 mg Tab Commonly known as: Norvasc TAKE 1 TABLET BY MOUTH EVERY DAY Refills: 0 aspirin EC 81 mg Tbec Take 1 tablet by mouth daily. Start taking on: November 21, 2020 81 mg Quantity: 30 tablet Refills: 0 finasteride 5 mg Tab Commonly known as: Proscar TAKE 1 TABLET BY MOUTH DAILY Refills: 0 glucosamine sulfate 500 mg Tab Take by mouth. Refills: 0 lactobacillus rhamnosus (GG) 10 billion cell Cap Commonly known as: CULTURELLE Take 1 capsule by mouth daily. 1 capsule Refills: 0 lisinopriL 40 mg Tab Commonly known as: Prinivil;Zestril TAKE 1 TABLET BY MOUTH EVERY NIGHT Refills: 0 POTASSIMIN ORAL Take by mouth. Refills: 0 simvastatin 40 mg Tab Commonly known as: Zocor Take 40 mg by mouth nightly. 40 mg Refills: 0 torsemide 10 mg Tab Commonly known as: Demadex TAKE 1 TABLET BY MOUTH EVERY DAY Refills: 0 VITAMIN D-3 ORAL Take by mouth. Refills: 0 Updated Allergies/ADRs: Allergies Allergen Reactions ??? Sulfa (Sulfonamide Antibiotics) Rash Info for Patient Patient Instructions Instructions for Patient at Discharge: What to expect: You will have soreness which will improve over the next several days. The area around the incision may be numb. This should recover over the next few months. Medications: Antibiotics - take the antibiotics as prescribed Incision Care: Your incision was closed with sutures/dayron. These will need to be removed in about 7-14 days, which will usually occur at your follow up appointment. Use diluted peroxide to clean the incision and apply antibiotic ointment twice daily. Keep the incision dry for the next two days. After that you mayget the area wet and pat dry (it is okay to shower). Do not submerge the incision for at least 2 weeks. Care of neck incisions: This is to be done daily: Using a sterile saline-soaked Q-tip, clean the neck incision, removing any loose crusts around the sutures. Apply a light coat of antibiotic ointment (such as Bacitracin or Aquaphor) to the incisions. You may leave the incisions exposed. When you are sleeping, keep your head elevated with an extra pillow under the back and two pillows under the head -this will minimize any swelling in the face and neck area. Wound site care: Where the original tumor was removed there is a skin graft covered with a bolster. This is sutured to the surrounding skin. The bolster is Xeroform (yellow petroleum-impregnated mesh) place over the the skin graft to help keep it in place. Keep the Xeroform moist by applying Bacitracin or Aquaphor to it liberally ever day. Activity: A good rule of thumb is if it hurts don't do it. Keep your head elevated when lying flat. No heavy lifting or strenuous activity for one to two weeks. No smoking, this is important for wound healing. Diet: Resume baseline diet. You should call your doctor if you develop: -Increasing pain and redness -Inreasing drainage from the wound -Increased swelling at the incision site -Fever > 38.5Celsius or 101 Fahrenheit -Bleeding -Breathing problems Contact: -You can reach the ENT clinic at [phone] for appointment questions. -The ENT triage nurse is available at [phone] -For urgent issues during evenings and weekends the ENT resident cotton stripper can be reached through the main hospital hydraulic lift operator at [phone] Follow Up: You will need to follow up with ENT in10 days. This appointment has been requested. You will be notified once it is scheduled, if you do not already see it below. If you do not hear from us in a timelymanner, please call [phone] to receive your date and time. Currently Scheduled Appointments and VNA instructions: General Instructions None __ Primary Care Doctor: Aryan Wyatt MD [phone] Signed: KHADIJAH Vargas 11/20/2020 documented in this encounter Discharge Instructions Patient InstructionsMuDerek hu PA - 11/19/2020 6:43 PM EDT Instructions for Patient at Discharge: What to expect: You will have soreness which will improve over the next several days. The area around the incision may be numb. This should recover over the next few months. Medications: Antibiotics - take the antibiotics as prescribed Incision Care: Your incision was closed with sutures/dayron. These will need to be removed in about 7-14 days, which will usually occur at your follow up appointment. Use diluted peroxide to clean the incision and apply antibiotic ointment twice daily. Keep the incision dry for the next two days. After that you mayget the area wet and pat dry (it is okay to shower). Do not submerge the incision for at least 2 weeks. Care of neck incisions: This is to be done daily: Using a sterile saline-soaked Q-tip, clean the neck incision, removing any loose crusts around the sutures. Apply a light coat of antibiotic ointment (such as Bacitracin or Aquaphor) to the incisions. You may leave the incisions exposed. When you are sleeping, keep your head elevated with an extra pillow under the back and two pillows under the head -this will minimize any swelling in the face and neck area. Wound site care: Where the original tumor was removed there is a skin graft covered with a bolster. This is sutured to the surrounding skin. The bolster is Xeroform (yellow petroleum-impregnated mesh) place over the the skin graft to help keep it in place. Keep the Xeroform moist by applying Bacitracin or Aquaphor to it liberally ever day. Activity: A good rule of thumb is if it hurts don't do it. Keep your head elevated when lying flat. No heavy lifting or strenuous activity for one to two weeks. No smoking, this is important for wound healing. Diet: Resume baseline diet. You should call your doctor if you develop: -Increasing pain and redness -Inreasing drainage from the wound -Increased swelling at the incision site -Fever > 38.5Celsius or 101 Fahrenheit -Bleeding -Breathing problems Contact: -You can reach the ENT clinic at [phone] for appointment questions. -The ENT triage nurse is available at [phone] -For urgent issues during evenings and weekends the ENT resident cotton stripper can be reached through the main hospital hydraulic lift operator at [phone] Follow Up: You will need to follow up with ENT in10 days. This appointment has been requested. You will be notified once it is scheduled, if you do not already see it below. If you do not hear from us in a timelymanner, please call [phone] to receive your date and time. Currently Scheduled Appointments and VNA instructions: documented in this encounter Medications at Time of Discharge Medication Sig Dispensed Refills Start Date End Date aspirin EC 81 mg Tablet, Take 1 tablet by 30 tablet 0 11/21 Delayed Release (E.C.) mouth daily. glucosamine sulfate 500 mg Take by mouth. 0 Tablet lactobacillus rhamnosus, Take 1 capsule by 0 GG, (CULTURELLE) 10 billion mouth daily. cell Capsule amLODIPine (Norvasc) 10 mg TAKE [...] 0 D3 (VITAMIN D-3 ORAL) potassium (POTASSIMIN ORAL) Take by mouth. 0 acetaminophen (Tylenol) 325 Take 2 tablets by 30 tablet 1 0 11/20/2020 mg Tablet mouth every 4 hours as needed for Pain. finasteride (Proscar) 5 mg TAKE 1 TABLET BY 0 09/2020 Tablet MOUTH DAILY documented as of this encounter Progress Notes Sabina Segundo RN - 11/20/2020 10:45 AM EDT Elvin Winkler Jr. discharged to Home by private car with Family member. All belongings sent with patient. MEÑO removed, incision no significant drainage, no dehiscence, no significant erythema, skin free from pressure ulcers. Discharge instructions, medications, and follow-up appointments reviewed, education provided on wound care. Patient instructed to call with concerns. Josie Cuevas MSW - 11/20/2020 9:53 AM EDT Social Work Progress Note Objective: RESIN MIXER received and acknowledged Advance Directive Consult. RESIN MIXER to introduce self and role. Patient was sitting with Watch Leader, but agreeable to brief discussion. He reports he completed his Advance Directives and he registered it with the state. Patient provided permission for this journalists and other writers to obtain a copy. RESIN MIXER reviewed patient's Advance Directive. Patient completed AD in 2010. He reports his Nila Winkler was his primary agent, but she is a stroke patient and has limitations that his son Kenny more is now primary DPOAHC. Patient also asks to include his other son Bravo as well (it is also noted in his AD that Bravo can be consulted too). Patient appreciative of assistance. A copy will be scanned into patient's chart. RESIN MIXER updated RNCM. Plan: RESIN MIXER is available as needed or requested. JILLIAN Sloan [facility] Craft Superintendent Phone: [phone] Pager: [phone] Nacho Brown - 11/20/2020 9:20 AM EDT Carpenter Inspector Encounter Note Patient Name: Elvin Winkler Jr. : [id number] MR#: [id number] Admit Date: 11/19/2020 10:52 AM Hospital Day 0 days Narrative: Initiated visit in response to a consult request. Mr. Winkler was sitting up in his bed awaiting discharge and invited me in. We talked about about his portia, his hospitalization, family and engaged in some life review. Assessment: Patient appears to be coping and relating well. He shared that despite his recent cancer diagnosis, he is feeling hopeful amidst moments of despair and uncertainty and that he finds comfort in God and gratitude. He engaged in life review voicing appreciation for his family and shared stories aboutthe many blessings in [his] life. He also lamented the shift of future plans after his had a stroke, yet clearly named the ways in which they remain lovingly connected. He also reflected that when the time comes, he is ready to join God's kingdom because he sees as returning to the Spirit that has sustained him his whole life. He voiced appreciation for the care he has received here, the support he continues to receive from his community and is looking forward to wherever life takes [him] next. Our visit ended as his son arrived to take him home and I provided a blessing for his recovery to end our time together. Intervention and Outcome: Watch Leader actively listened and reflectively engaged as patient voiced joys and concerns. Invited patient to reflect on life's challenges, in addition to voiced blessings. Patient shared openly. Provided emotional and spiritual support. Provided blessing on his recovery. Patient voiced appreciation. Follow-up: No follow-up needed as patient is discharging today. Time in Direct Care: 45 mins Nacho Solomon Stephanie 11/20/2020 Cristy Mc RN - 11/20/2020 5:35 AM EDT OUTCOME EVALUATION NOTE: OUTCOME SUMMARY: Pt A+Ox4, VSS on RA. Pt had a good night, denies pain, nausea, sob, chest pain. Will continue to monitor. PLAN MOVING FORWARD: D/c planning Home today INDIVIDUALIZED FALL PREVENTION INTERVENTIONS: Patient-specific fall risk factors per assessment: [current deficits]: unfamiliar environment, post surgery Assistance [level of assistance required for transfers and ambulation]: SBA Supervision [direct monitoring required during toileting and ADLs]: Within arms reach Surveillance [continuous indirect monitoring]: charley Robertson within reach, bed alarm Patient-specific fall prevention interventions for sensory deficits provided, if applicable: [X] N/A CPG GOAL OUTCOME EVALUATION: Rosangela Perez MD - 11/20/2020 1:25 AM EDT OTOLARYNGOLOGY - HEAD & NECK SURGERY POST OP CHECK Name: Elvin Winkler Jr. Age/Sex: 70 y.o. male Attending: Tiffanie Saavedra MD Hospital Day: 2 1 Day Post-Op Patient ID/Reason for Admission Oconnor Ramsey Winkler Jr. is a 70 y.o. male with left cheek melanoma here for surgical resection and cervical advancement flap Interval History Surgery: Procedure(s): BIOPSY OR EXCISION OF LYMPH NODE(S), OPEN, DEEP CERVICAL NODES (WRVU 6.74) ADJ.TISSUE TRANSFER, REARRANGEMENT, 10SQ.CM OR LESS, CHEEK (WRVU 8.6) FULL THICKNESS GRAFT,FREE, W/ DIRECT CLOSURE DONOR SITE, 20SQ CM OR LESS, EYELIDS (WRVU 11.64) Subjective/Events: Patient denies fever, chills, chest pain, shortness of breath, dizziness, headache, abdominal pain, nausea, vomiting, numbness, tingling. Pain well-controlled. Voiding without issues Vitals Last value 24hr Range Temperature: 36.4 ??C (97.5 ??F) Temp: [36 ??C (96.8 ??F)-36.6 ??C (97.9 ??F)] Heart Rate: 78 Heart Rate: [73-84] Blood Pressure: 120/68 BP: (118-148)/(66-72) Respiratory Rate: 14 Resp: [11-18] SpO2: 94 % SpO2: [90 %-98 %] Intake & Output Intake/Output Summary (Last 24 hours) at 11/20/2020 0125 Last data filed at 11/19/2020 2349 Gross per 24 hour Intake 1400 ml Output 280 ml Net 1120 ml Physical Exam General: NAD, non-ill appearing Face: Symmetric without dysmorphic features. Left cheek with bolster dressing intact, no drainage Eyes: EOMI, conjunctiva healthy Ears: Auricles symmetric, no lesions Nose: Patent nares, grossly normal appearance Oral Cavity/Pharynx: Mucosa is pink, oropharynx symmetric Neck: Soft, trachea midline. Two incisions with sutures, intact, without drainage. Chest: Unlabored breathing, regular rate. Left upper chest harvest site covered with dressing. Neuro: Alert & oriented, moving extremities x 4 Labs No results for input(s): WBC, HGB, HCT, PLATELET, PT, INR, PTT, NA, K, CL, CO2, BUN, CREATININE, GLUCOSE, CALCIUM, MAGNESIUM, PHOS in the last 72 hours. Imaging No post-imaging ASSESSMENT & PLAN Elvin Winkler Jr. is a 70 y.o. male s/p Procedure(s): BIOPSY OR EXCISION OF LYMPH NODE(S), OPEN, DEEP CERVICAL NODES (WRVU 6.74) ADJ.TISSUE TRANSFER, REARRANGEMENT, 10SQ.CM OR LESS, CHEEK (WRVU 8.6) FULL THICKNESS GRAFT,FREE, W/ DIRECT CLOSURE DONOR SITE, 20SQ CM OR LESS, EYELIDS (WRVU 11.64). Patient is doing well postoperatively. Continue with current care plan. __ Rosangela Perez MD 11/20/20 1:25 AM ENT Team Pager: [phone] India Gale RN - 11/19/2020 8:11 PM EDT Pt admitted to [address], Alert, sipping water, declines pain at this time. documented in this encounter H&P Notes Derek Moody PA - 11/19/2020 4:12 PM EDT OTOLARYNGOLOGY - HEAD & NECK SURGERY PRE OP H&P Name: Elvin Winkler Jr. Age/Sex: 70 y.o. male Attending: Tiffanie Saavedra MD Interval History Elvin Winkler Jr.'s condition unchanged since H&P originally performed. Denies any new ED visits, hospitalizations, trauma, or new events. Has been overall doing well. He denies recent fevers, chills, chest pain, issues with breathing, nausea, vomiting, and/or changes in bowel habits. Vitals Last value 24hr Range Temperature: 36 ??C (96.8 ??F) Temp: [36 ??C (96.8 ??F)] Heart Rate: 73 Heart Rate: [73] Blood Pressure: 148/72 BP: (148)/(72) Respiratory Rate: 18 Resp: [18] SpO2: 98 % SpO2: [98 %] Physical Exam General: NAD, alert. Heart: RRR. Lungs: CTAB. ASSESSMENT & PLAN Elvin Winkler Jr. is a 70 y.o. male who is here today due to Melanoma. After extensive discussion of the risks, benefits, and alteratives of surgical intervention, the patient consented to proceed with surgery. Proceed to OR for: Procedure(s): BIOPSY OR EXCISION OF LYMPH NODE(S), OPEN, DEEP CERVICAL NODES (WRVU 6.74) ADJ.TISSUE TRANSFER, REARRANGEMENT, 10.1 TO 30 SQ.CM, NECK (WRVU 10.83) __ KHADIJAH Cardenas 11/19/20 4:12 PM Pager: [phone] documented in this encounter Miscellaneous Notes Op Note - Tiffanie Saavedra MD - 11/19/2020 5:00 PM EDT [facility] [place] Patient Name: Elvin Winkler Jr. : [id number] MR#: [id number] Case Date: 11/19/2020 Surgeon: Surgeon(s) and Role: * Tiffanie Saavedra MD - Primary * Derek Moody PA - Physician Poultry Trimmer * Mildred Champion PA - Physician Poultry Trimmer Preoperative diagnosis: Melanoma Postoperative diagnosis: Melanoma Procedure(s) (LRB): BIOPSY OR EXCISION OF LYMPH NODE(S), OPEN, DEEP CERVICAL NODES (WRVU 6.74) (Left) ADJ.TISSUE TRANSFER, REARRANGEMENT, 10SQ.CM OR LESS, CHEEK (WRVU 8.6) (Left) FULL THICKNESS GRAFT,FREE, W/ DIRECT CLOSURE DONOR SITE, 20SQ CM OR LESS, EYELIDS (WRVU 11.64) Anesthesia: General Estimated Blood Loss: * No values recorded between 11/19/2020 5:00 PM and 11/19/2020 6:36 PM * Specimens removed during surgery: Order Name Source Comment Collection Info Order Time SPECIMEN TO PATHOLOGY Melanoma LEFT Ki facial [place] Node for Melanoma excision No 11/19/2020 5:12 PM Time specimen removed from patient: 5:11 PM Number of tissue samples (in container) Multiple Biospecimen to store? No SPECIMEN TO PATHOLOGY Melanoma LEFT Superior Posterior Neck [place] Lymph Node for Melanoma excision No 11/19/2020 5:26 PM Time specimen removed from patient: 5:26 PM Number of tissue samples (in container) Multiple Biospecimen to store? No Drains: * No LDAs found * Surgical Closure: Primary Closure - skin incision is closed but with open spaces for wires, neelam, drains or other devices Disposition: awakened from anesthesia, extubated and taken to the recovery room in a stable condition, having suffered no apparent untoward event. Condition: doing well without problems (Please see the Surgical Encounter Summary for any Implant and Specimen details pertinent to this patient.) HPI/Surgical Indications: 70-year-old male with recent diagnosis of left cheek melanoma status post excision of controlled margins being taken to the OR for sentinel mapping as well as reconstruction of his surgical defect. Procedure Description: The patient has had the preprocedure lymphoscintigraphy which is reviewed with the patient to identify the sites of the potential sentinel nodes containing melanoma. Consent is obtained. And the left side of face is marked. Patient is brought to the operating room and placed in the supine position. General anesthesia secured with placing the tube to the patient's right side. The dressing over the patient's left cheek is removed and shows that there is an abundant amount of granulation tissue which will be a good base for the patient to undergo a full-thickness skin graft. The best 180 degrees away from anesthesia, the left cheek and left neck were then prepped and drapedin a sterile fashion. Timeout is completed. Using the gamma probe, the sites of the sentinel nodes are noted. The majority are located in level 1B as well as levels 3 and 4 from the left neck. The nodes from an imaging perspective were described as being very small. The incision along the left neck is planned and injected using 1% lidocaine with 100,000 epinephrine. Incision carried out with a 10 blade to then raised the subplatysmal flap superiorly and inferiorlyat the level of the anterior aspect of the submandibular gland. Using the gamma probe we identified the source of the radioactivity. The fatty appearing material is dissected free and the gamma probe count at that point is 75 of this material and when the gamma probe is repositioned in the wound following removal, counts dropped to 12. The second site is concern sentinel nodes is then incised with a separate incision along the posterior left neck. Inferior and subplatysmal flaps again are elevated. We identify the site of radioactivity admission with the gamma probe this appears to be in multiple location with counts between 50 and 60. That material is dissected sharply along with snacks bipolar. This is dissected off the floor of the neck. The fatty appearing nodule is therefore removed and submitted for pathologic evaluation with counts on the specimen at 70. When the gamma probe is repositioned in the defect, the count is 14. The wound at that point is closed in both sides using 3-0 Vicryl's and 4-0 Prolene's. Specimen are then submitted for pathologic evaluation. We then turned our attention to the full-thickness skin graft reconstruction. The excessive granulation tissue on the cheek is then debrided. Bipolar hemostasis is used to achieve hemostasis. A template is created of the skin graft donor requirement using a piece of cardboard and transferredto the patient's left clavicular skin which is then traced out, and locally infiltrated using 1% lidocaine with 1 and 200,000 epinephrine with good effect. The skin of the clavicle is incised using a 15 blade and following the outline of the template the skin is removed in the subdermal plane and placed on a moist gauze. The full-thickness skin graft defect is examined. Bipolar hemostasis is achieved. In order to achieve closure of the defect measuring 3 cm x 2 cm, bilateral superior and inferior flaps are elevated into the deep soft tissues using electrocautery and then advanced in position. Surgicel was applied to the surgical defect. The wound is then copiously irrigated. The wound is closed inlayers using three 2-0 Vicryl's and skin is closed using 4-0 Prolene's. The left cheek defect is reconstructed first by freshening up the margins of the defect using a 15 blade. We then do a partial advancement flap coming from the left lower cheek by making a 1 cm incision laterally along the zygomatic process. Local anesthesia is then injected to facilitate the elevation of the flap and then the flap is advanced to close the posterior aspect of the defect. The full-thickness skin graft was then placed in position to fill the rest of the defect. The skin graft is held in position using multiple 4-0 chromic sutures. A bolster dressing is then fashioned using a ball of Xeroform which is secured in place with a 4-0 chromic sutures. All counts are verified and at that point the patient's anesthesia is reversed and the patient extubated and transferred from stable condition. Since surgical assistance was required for this case, and that no medical students or residents wereavailable for the case, a physician audiology assistant was used as a audiology assistant. Infection Bundle used? N/A Attestation: Case Date: 11/19/2020 I performed this procedure without the involvement of a resident. TIFFANIE SAAVEDRA MD 11/21/2020 documented in this encounter Plan of Treatment Upcoming Encounters Date Type Specialty Care Team Description 04/15/2022 Office Visit Dermatology Erasto Barrett M D [facility] DR JUVENAL YOU-[place], [place] [address] (Wo rk) documented as of this encounter Procedures Procedure Name Priority Date/Time Associated Diagnosis Comme nts FULL THICK Routine 11/19/2020 6:48 PM GRAFT,FREE, W/DIRE EDT CLOSE DONOR SITE, 20SQ CM/LESS, EYELIDS ADJ.TISSUE Routine 11/19/2020 6:48 PM TRANSFER, EDT REARRANGEMENT, 10SQ.CM OR LESS, CHEEK SPECIMEN TO Routine 11/19/2020 5:26 PM Results f or this PATHOLOGY EDT procedure are i n the results section. SPECIMEN TO Routine 11/19/2020 5:12 PM Results f or this PATHOLOGY EDT procedure are i n the results section. SURGICAL PATHOLOGY Routine 11/19/2020 5:11 PM Res ults for this REPORT EDT procedure are i n the results section. FULL THICKNESS Yes 11/19/2020 4:23 PM Melanoma GRAFT,FREE, W/ EDT DIRECT CLOSURE DONOR SITE, 20SQ CM OR LESS, EYELIDS (WRVU 11.64) ADJ.TISSUE Yes 11/19/2020 4:23 PM Melanoma TRANSFER, EDT REARRANGEMENT, 10SQ.CM OR LESS, CHEEK (WRVU 8.6) BIOPSY OR EXCISION Yes 11/19/2020 4:23 PM Melanoma OF LYMPH NODE(S), EDT OPEN, DEEP CERVICAL NODES (WRVU 6.74) BIOPSY OR EXC OF Routine 11/19/2020 10:59 AM LYMPH NODES; OPEN, EDT DEEP CERVICAL NODES documented in this encounter Results Specimen to Pathology (11/19/2020 5:26 PM EDT) Specimen Anatomical Collection Method Collection Time Receive d Time (Source) Location / / Volume Laterality AP Specimen 11/19/2020 5:26 PM 5:26 EDT PM EDT Narrative [facility] [place] 11/19/2020 5:26 PM EDT Specimen requisition ordered. ??Separate Pathology report to follow Tiffanie Saavedra MD PATHOLOGY/CYTOLOGY ORDERABLE S Performing Organization Address City/[facility]/[place] [address] Specimen to Pathology (11/19/2020 5:12 PM EDT) Specimen Anatomical Collection Method Collection Time Receive d Time (Source) Location / / Volume Laterality AP Specimen 11/19/2020 5:12 PM 1 5:12 EDT PM EDT Narrative [facility] [place] 11/19/2020 5:12 PM EDT Specimen requisition ordered. ??Separate Pathology report to follow Tiffanie Saavedra MD PATHOLOGY/CYTOLOGY ORDERABLE S Performing Organization Address City/[facility] [place] [address] Surgical Pathology Report (11/19/2020 5:11 PM EDT) Component Value Ref Test Analysis Performed At [facility] Method Time Signature Surgical [id number] ? Location: 5WST; 0503; B [facility] Pathology LAZARO Report The signing pathologist has (i) examined the relevant preparation(s) for the [facility]ORIAL specimen(s) and (ii) rendered or confirmed the diagnosis(es) . HOSPITAL LABORATORY . ?Surgic al Pathology DIAGNOSIS A - Left ki facial, sentinel node excision: - Fibroadipose tissue only, ?? see Discussion. B - Left superior posterior neck, sentinel node excision: - Fibroadipose tissue only, ?? see Discussion. Electronically signed by: ?Silvestre WESLEY, Erasmo Mustafa Verified: ??11/24/2020 16:32 ??Dermatopathologist, Bone & Soft Tissue Pathologist Performed at: ??-[facility] [place], [place], [place] DISCUSSION A,B- No lymphoid tissue is i dentified. Numerous levels deeper into the block were examined. SPECIMEN(S) SUBMITTED A - LEFT Ki facial [place] Node for Melanoma, excision B - LEFT Superior Posterior Neck [place] Lymph Node for M elanoma, excision CLINICAL INFORMATION Melanoma SPECIMEN PROCESSING A - Labeled/Fixative: Left ki facial sentinel node for peter anoma, fresh. Quantity/Size: Two, 0.3 x 0.3 x 0.2 cm, and 0.6 x 0.3 x 0.3 cm. Tissue Description: Irregular, yellow-tovar, rubbery fibrofatt y soft tissues Sections/Processing: The larger specimen is trisected. Entirely submitted in 2 cassettes as follows: ?A1: ??Smaller specimen, intact ?A2: ??Larger specimen, trisected B - Labeled/Fixative: Left s uperior posterior neck lymph node for melanoma, fresh. Quantity/Size: Single, 0.8 x 0.5 x 0.5 cm. Tissue Description: Nonoriented, ovoid yellow to pink red rubbery soft tissue Sections/Processing: Trisected and entirely submitted in 1 cassette labeled B1. ??b Specimen (Source) Anatomical Collection Method Collection Time Re ceived Time Location / / Volume Laterality 11/19/2020 5:11 PM EDT Tiffanie Saavedra MD PATHOLOGY/CYTOLOGY ORDERABLE S Performing Organization Address City/State/[place] [address] documented in this encounter Visit Diagnoses Diagnosis Malignant melanoma Melanoma of skin, site unspecified documented in this encounter Admitting Diagnoses Diagnosis Malignant melanoma Melanoma of skin, site unspecified documented in this encounter Administered Medications Inactive Administered Medications - up to 3 most recent administrations Medication Order MAR Action Action Date Dose Rate Site acetaminophen (Tylenol) (32.02 Given 11/20/2020 8:07 AM EDT 650 mg mg/mL) oral liquid 650 mg 650 mg, Oral, EVERY 4 HOURS PRN, Starting on Tue11/19/20 at 2006, Until Tue11/20/20 at 1245, Pain, Maximum dose of acetaminophen is 4000 mg from all sources in 24 hours., Routine acetaminophen (Tylenol) chewable tablet 640 mg 640 mg (rounded from 650 mg), Oral, EVER Y 4 HOURS PRN, Starting on Tue11/19/20 at 2006, Until Tue11/20/20 at 1245, Pain, Routine acetaminophen (Tylenol) suppository 650 mg 650 mg, Rectal, EVERY 4 HOURS PRN, Starting on 10/24 at 2006, Until Tue11/20/20 at 1245, Pain, Routine acetaminophen (Tylenol) tablet 1,000 mg Given 11/19/2020 7:38 PM EDT 1,000 mg 1,000 mg, Oral, ONCE, 1 dose, On Tue11/19/20 at 1530, Administer with SIP of H2O only., Day of Surgery (Day of Procedure), Routine acetaminophen (Tylenol) tablet 650 mg 650 mg, Oral, EVERY 4 HOURS PRN, Startin g on Tue11/19/20 at 2006, Until Tue11/20/20 at 1245, Pain, Routine amLODIPine (Norvasc) tablet 10 mg Given 11/20/2020 8:11 AM EDT 10 mg 10 mg, Oral, DAILY, First dose on Tue11/20/20 at 0900, Until Discontinued, Routine bisacodyL (Dulcolax) suppository 10 mg 10 mg, Rectal, DAILY PRN, Starting on Tue11/19/20 at 1 901, Until Tue11/20/20 at 1245, Constipation, if no BM in 48 hours or per patient's routine, Administer if needed per patient's routine or if no deidre wel movement within 48 hours to achieve: 1) One bowel movement at least every 48 nguyễn rs, AND 2) Without straining. If multiple bowel medications ordered, consider adding bisacodyl i f polyethylene glycol (MIRALAX) or sennosides (SENOKOT) not sufficient., Rou jewel finasteride (Proscar) tablet 5 mg Given 11/20/2020 8:08 AM EDT 5 mg 5 mg, Oral, DAILY, First dose on Tue11/20/20 at 0900, Until Discontinued, DO NOT SPLIT, CRUSH OR OPEN, Routine heparin (porcine) (5,000 units/1 mL) Given 11/19/2020 9:15 PM ED T 5,000 Units subcutaneous injection 5,000 Units 5,000 Units, Subcutaneous, EVERY 12 HOURS SCHEDULED (2 times per day), First dose on Tue11/19/20 at 2100, Until Discontinued, Routine lisinopriL (Prinivil;Zestril) tablet 40 mg Given 11/20/2020 8:09 AM EDT 40 mg 40 mg, Oral, DAILY, First dose on Tue11/20/20 at 0900, Until Discontinued, Routine ondansetron (pf) (Zofran) (2 mg/mL) inje ction 4 mg 4 mg, Intravenous, EVERY 8 HOURS PRN, St arting on Tue11/19/20 at 1901, Until Tue11/20/20 at 1245, Nausea, Vomiting, If not effective, m ay repeat once after 30 minutes with each 8 hour dosing interval ondansetron (Zofran) (0.8 mg/mL) oral li quid 4 mg 4 mg, Per NG tube, EVERY 8 HOURS PRN, St arting on Tue11/19/20 at 1901, Until Tue11/20/20 at 1245, Nausea, For nausea/vomi ting, Use only if enteral feeding tube is cleared for use. NOTE: NGT (nasogastric tube), PEG (percutaneous gastrostomy tube), or GTUBE (gastrostomy tube) are all acce ptable routes of administration., Routine oxyCODONE (Roxicodone) tablet 5 mg 5 mg, Oral, ONCE PRN, 1 dose, Starting o n Tue11/19/20 at 1842, Until Tue11/20/20 at 1245, For pain not controlled with tylenol., Routine pantoprazole (Protonix) injection 40 mg 40 mg, Intravenous, DAILY, First dose on Tue11/19/20 at 1930, Until Discontinued, Reconstitute with 10 mL of normal saline to a concentration of 4 mg/mL and infuse slowly over 2 minutes. , Routine pantoprazole EC (Protonix) tablet 40 mg Given 11/20/2020 8:09 AM EDT 40 mg 40 mg, Oral, DAILY, First dose on Tue11/19/20 at 1930, Until Discontinued, DO NOT CRUSH OR OPEN If unable to take PO, may give IV, Routine Given 11/19/2020 9:14 PM EDT 40 mg polyethylene glycoL (Miralax) packet 17 g Given 11/19/2020 9:14 PM EDT 17 g 17 g, Per NG tube, DAILY, First dose on Tue11/19/20 at 1930, Until Discontinued, Routine sennosides (Senokot) (1.76 mg/mL) oral l iquid 8.8 mg 8.8 mg, Oral, 2 TIMES DAILY PRN, Startin g on Tue11/19/20 at 1901, Until Tue11/20/20 at 1245, Constipation, if no BM in 48 ho urs or per patient's routine, Administer if needed per patient's routine or if no deidre wel movement within 48 hours to achieve: 1) One bowel movement at least every 48 nguyễn rs, AND 2) Without straining. If multiple bowel medications ordered, consider adding sennosides (SENOKOT) if polyethylene glycol (MIRALAX) not sufficient., Routine simvastatin (Zocor) tablet 40 mg Given 11/19/2020 9:14 PM EDT 40 mg 40 mg, Oral, NIGHTLY, First dose on Tue11/19/20 at 2145, Until Discontinued, Routine torsemide (Demadex) tablet 10 mg Given 11/20/2020 8:12 AM EDT 10 mg 10 mg, Oral, DAILY, First dose on Tue11/20/20 at 0900, Until Discontinued, Routine documented in this encounter Active and Recently Administered Medications Times are shown in EDT. Scheduled Medication Order 11/18/2020 11/19/2020 11/20/2020 acetaminophen (Tylenol) tablet 1,000 mg (COMPLETED) 1937 (Given - Provider: Carito Kwon, TEGAN) 1,000 mg, Oral, ONCE, 1 dose, Tue 1 at 1530, Administer with SIP of H2O only., Day of Surgery (Day of Procedure), Routine amLODIPine (Norvasc) tablet 10 mg 08 (Given - Provider: Sabina Segundo, TEGAN) 10 mg, Oral, DAILY, First dose on Tue at 0900, Until Discontinued, Routine ampicillin-sulbactam (Unasyn) 1.5 g vial attach to sodium chloride 0.9% 50 mL Mini-Bag Plus (COMPLETED) 1649 (New Bag - Provider: Jem Medina CRNA) 1.5 g, Intravenous, 30 MIN PRE-OP, 1 dos e, Tue11/19/20 at 1400, Administer over 15 Minutes, Warning Vesicant/Irritant Medication , Day of Surgery (Day of Procedure), Indication for (Active or Suspected): Prophylaxis finasteride (Proscar) tablet 5 mg 807 (Given - Provider: Sabina Segundo, TEGAN) 5 mg, Oral, DAILY, First dose on 10/24 at 0900, Until Discontinued, DO NOT SPLIT, CRUSH OR OPEN, Routine heparin (porcine) (5,000 units/1 mL) subcutaneous injection 5,000 Units 2114 (Given - Provider: Linwood Mccray, TEGAN) 0900 (Not Given - Provider: Sabina Segundo, TEGAN - Reason: Patient/family refused) 5,000 Units, Subcutaneous, EVERY 12 HOUR S SCHEDULED (2 times per day), First dose on Tue11/19/20 at 2100, Until Discontinued, Routine lisinopriL (Prinivil;Zestril) tablet 40 mg 08 (Given - Provider: Sabina Segundo, TEGAN) 40 mg, Oral, DAILY, First dose on Tue at 0900, Until Discontinued, Routine pantoprazole (Protonix) injection 40 mg(Linked Group 1) 2113 (See Alternative - Provider: Linwood Mccray RN) 808 (See Alternative - Provider: Sabina Segundo RN) 40 mg, Intravenous, DAILY, First dose on Tue11/19/20 at 1930, Until Discontinued, Reconstitute with 10 mL of normal saline to a concentration of 4 mg/mL and infuse slowly over 2 minutes. , Routine pantoprazole EC (Protonix) tablet 40 mg(Linked Group 1) 2113 (Given - Provider: Linwood Mccray RN) 808 (Given - Provider: Sabina Segundo , TEGAN) 40 mg, Oral, DAILY, First dose on Tue at 1930, Until Discontinued, DO NOT CRUSH OR OPEN If unable to take PO, may give IV, Routine polyethylene glycoL (Miralax) packet 17 g 2113 (Given - Provider: Linwood Mccray RN) 0900 (Not Given - Provider: Sabina obrien RN - Reason: Patient/family refused) 17 g, Per NG tube, DAILY, First dose on Tue11/19/20 at 1930, Until Discontinued, Routine simvastatin (Zocor) tablet 40 mg 2113 (Given - P rovider: Linwood Mccray RN) 40 mg, Oral, NIGHTLY, First dose on Tue11/19/20 at 2145, Until Discontinued, Routine torsemide (Demadex) tablet 10 mg 811 (Given - Provider: Sabina Segundo RN) 10 mg, Oral, DAILY, First dose on Tue at 0900, Until Discontinued, Routine Continuous Medication Order 11/18/2020 11/19/2020 11/20/2020 lactated ringers infusion (CANCELED) 161 5 (New Bag - Provider: Jem Medina CRNA)1724 (Anesthesia Volume Adjustment - Provider: Jose Manuel Pressley CRNA)1815 (Anesthesia Volume Adjustment - Provider: Jem Medina CRNA) 1,000 mL, at 100 mL/hr, Intravenous, CON TINUOUS, Starting Tue11/19/20 at 1530, Until Tue11/19/20 at 2057, Day of Surgery (Day of Procedure) 1837 (Anesthesia Volume Adjustment - Provider: Jem Medina CRNA) PRN Medication Order 11/18/2020 11/19/2020 11/20/2020 acetaminophen (Tylenol) (32.02 mg/mL) oral liquid 650 mg(Linked Group 2) 0807 (Given - Provider: Sabina Segundo RN) 650 mg, Oral, EVERY 4 HOURS PRN, Startin g Tue11/19/20 at 2006, Until Kenisha 11/20/20 at 1245, Pain, Maximum dose of acetaminophen is 4000 mg from all sources in 24 hours., Routine acetaminophen (Tylenol) chewable tablet 640 mg(Linked Group 2) 0807 (See Alternative - Provider: Sabina Segundo RN) 640 mg (rounded from 650 mg), Oral, EVER Y 4 HOURS PRN, Starting Tue11/19/20 at 2006, Until Tue11/20/20 at 1245, Pain, Routine acetaminophen (Tylenol) suppository 650 mg(Linked Group 2) 0807 (See Alternative - Provider: Sabina Segundo RN) 650 mg, Rectal, EVERY 4 HOURS PRN, Start ing Tue11/19/20 at 2006, Until Kenisha 11/20/20 at 1245, Pain, Routine acetaminophen (Tylenol) tablet 650 mg(Linked Group 2) 0807 (See Alternative - Provider: Sabina Segundo RN) 650 mg, Oral, EVERY 4 HOURS PRN, Startin g Tue11/19/20 at 2006, Until Kenisha 11/20/20 at 1245, Pain, Routine bisacodyL (Dulcolax) suppository 10 mg 10 mg, Rectal, DAILY PRN, Starting Tue at 1901, Until Tue11/20/20 at 1245, Constipation, if no BM in 48 hours or per patient's routine, Administer if needed per patient's routine or if no bowel movement within 48 hours to achieve: 1) One bowel movement at least every 48 hours, AND 2) Without straining. If multiple bowel medications ordered, consider adding bisacodyl if polyethylene glycol (DEMARCO ALAX) or sennosides (SENOKOT) not sufficient., Routine lidocaine-EPINEPHrine (1% - 1:100,000) injection (CANCELED) 1700 (Given - Provider: Tiffanie Saavedra MD) ONCE PRN, Starting Tue11/19/20 at 1700, Until Kenisha 11/20/20 at 1245, Intra- Operative (Intra-Procedure), Routine ondansetron (pf) (Zofran) (2 mg/mL) injection 4 mg(Linked Group 3) 4 mg, Intravenous, EVERY 8 HOURS PRN, St arting 11/19/20 at 1901, Until Kenisha 11/20/20 at 1245, Nausea, Vomiting, If not effective, may repeat once after 30 minutes with each 8 hour dosing interval ondansetron (Zofran) (0.8 mg/mL) oral liquid 4 mg(Linked Group 3 ) 4 mg, Per NG tube, EVERY 8 HOURS PRN, St arting Tue11/19/20 at 1901, Until Kenisha 11/20/20 at 1245, Nausea, For nausea/vomiting, Use only if enteral feeding tube is cleared for use. NOTE: NGT (nasogastric tu be), PEG (percutaneous gastrostomy tube) , or GTUBE (gastrostomy tube) are all acceptable routes of administration., Routine oxyCODONE (Roxicodone) tablet 5 mg 5 mg, Oral, ONCE PRN, 1 dose, Starting W ed 11/19/20 at 1842, Until Kenisha 11/20/20 at 1245, For pain not controlled with tylenol., Routine sennosides (Senokot) (1.76 mg/mL) oral liquid 8.8 mg 8.8 mg, Oral, 2 TIMES DAILY PRN, Startin g Tue11/19/20 at 1901, Until Kenisha 11/20/20 at 1245, Constipation, if no BM in 48 hours or per patient's routine, Administer if needed per patient's routine or if no bowel movement within 48 hours to achie ve: 1) One bowel movement at least every 48 hours, AND 2) Without straining. If multiple bowel medications ordered, consider adding sennosides (SENOKOT) if polyethylene glycol (MIRALAX) not sufficient., Routine Linked Groups Order Group 1: pantoprazole EC (Protonix) tablet 40 mgJump to med 40 mg, Oral, DAILY, First dose on Wed at 1930, Until Discontinued
DO NOT CRUSH OR OPEN If unable to take PO, may give IV
Routine Or pantoprazole (Protonix) injection 40 mgJump to med 40 mg, Intravenous, DAILY, First dose on Tue11/19/20 at 1930, Until Discontinued
Reconstitute with 10 mL of normal saline to a concentration of 4 mg/mL and infuse slowly over 2 minutes.
Routine Group 2: acetaminophen (Tylenol) tablet 650 mgJump to med 650 mg, Oral, EVERY 4 HOURS PRN, Startin g Tue11/19/20 at 2006, Until Kenisha 11/20/20 at 1245, Pain, Routine Or acetaminophen (Tylenol) (32.02 mg/mL) oral liquid 650 mgJump to med 650 mg, Oral, EVERY 4 HOURS PRN, Startin g Tue11/19/20 at 2006, Until Tue11/20/20 at 1245, Pain
Maximum dose of acetaminophen is 4000 mg from all sources in 24 hours.
Routine Or acetaminophen (Tylenol) suppository 650 mgJump to med 650 mg, Rectal, EVERY 4 HOURS PRN, Start ing Tue11/19/20 at 2006, Until Kenisha 11/20/20 at 1245, Pain, Routine Or acetaminophen (Tylenol) chewable tablet 640 mgJump to med 640 mg (rounded from 650 mg), Oral, EVER Y 4 HOURS PRN, Starting Tue11/19/20 at 2006, Until Tue11/20/20 at 1245, Pain, Routine Group 3: ondansetron (Zofran) (0.8 mg/mL) oral liquid 4 mgJump to med 4 mg, Per NG tube, EVERY 8 HOURS PRN, arttue11/19/20 at 1901, Until Kenisha 11/20/20 at 1245, Nausea, For nausea/vomiting
Use only if enteral feeding tube is cleared for use. &nbs p;NOTE: NGT (nasogastric tube ), PEG (percutaneous gastrostomy tube), or GTUBE (gastrostomy tube) are all acceptable routes of administration.
Routine Or ondansetron (pf) (Zofran) (2 mg/mL) injection 4 mgJump to med 4 mg, Intravenous, EVERY 8 HOURS PRN, arttue 11/19/20 at 1901, Until Kenisha 11/20/20 at 1245, Nausea, Vomiting
If not effective, may repeat once after 30 minutes with each 8 hour dosing interval
documented in this encounter Additional Health Concerns Infection Onset Date Last Indicated Resolved Time Rule Out COVID-19 11/19/2020 11/19/2020 11/19/2020 7:1 5 PM EDT documented as of this encounter Care Teams Inspector [employer]ision [employer] Relationship Specialty Start Date End Date Aryan Wyatt MD PCP - General General Internal Medicine 10/29/[address] [place] [id number] documented as of this encounter
--- OUTSIDE RECORDS SUMMARY | 2022-02-08 17:43 | XMS_ITS | Encounter Summary ---
:1950 Author Organization [facility] [place] [address] Care Team Providers Name Role Phone Aryan Wyatt MD Primary Care Provider Encounter Details Date Type Department Care Team Description 12/09/2020 Multidisciplinary Care Hematology and [place] [facility] Oncology at [facility] [place] [address] Social History Tobacco Use Types Packs/Day Years [...] documented as of this encounter Progress Notes Mildred Pearson RN - 12/09/2020 7:33 AM EDT Melanoma - Tumor Board Note Date Presented: 12/09/2020 Presenting Physician: Keri Diagnosis/Tumor Site: Invasive [...] neck Recommendations: surveillance with ENT and dermatology DISCLAIMER: The patient was discussed and the tumor board made recommendations but it is ultimately up to the treatment provider(s) and the patient to determine the patient???s care. documented in this encounter Plan of Treatment Upcoming Encounters Date Type Specialty Care Team Description 04/15/2022 Office Visit Dermatology Erasto Barrett M D [facility] DR JUVENAL YOU[place], [place] [address] (Wo rk) documented as of this encounter Visit Diagnoses Not on filedocumented in this encounter Care Teams Fabricating Machine Operator Relationship Specialty Start Date End Date Aryan Wyatt MD PCP - General General Internal Medicine 10/29/[address] [place] [id number] documented as of this encounter
--- OUTSIDE RECORDS SUMMARY | 2022-02-08 17:43 | XMS_ITS | Encounter Summary ---
:1950 Author Organization [facility] Address [address] [place] [address] Care Team Providers Name Role Phone Jem Villagomez MD Primary Care Provider Encounter Details Date Type Department Care Team Description 03/11/2020 Lab Requisition [facility] Outr Resulting Lab, Pathology & Laboratory Provider [facility] [address], [place] [id number] Social History Tobacco Use Types Packs/Day Years Used Date Never Assessed Sex Assigned at Date Recorded Not on file documented as of this encounter Plan of Treatment Not on filedocumented as of this encounter Procedures Procedure Name Priority Date/Time Associated Comments Diagnosis DO NOT ORDER Today 03/11/2020 13:40 Results for this STANDALONE - BROAD EDT procedure are in COVID TEST the results section. COVID-19 TESTING Routine 03/11/2020 13:40 Results for this EDT procedure are i n the results section. documented in this encounter Results DO NOT ORDER STANDALONE - BROAD COVID TEST (03/11/2020 13:40 EDT) COVID-19 rt-PCR NEGATIVE Negative [facility] Result Comment: LABORATORY 2019-novel Coronavirus (2019 -nCoV) not detected by the qRT-PCR assay. Consider testing for other respiratory viruses or re-collecting for 2019-nCoV testing. Note: Optimum timing for peak viral levels du ring infections caused by 20 19-nCoV have not been determined. Collection of multiple specimens from the same patient may be necessary to detect the virus. Limitations Positive results are indicat rudolph of active infection with SARS-CoV-2 but do not rule out bacterial infection or co-infection with other viruses. The agent detected may not be the definite cause of diseas e. In addition, detection of viral RNA may not indicate the presence of infectious virus or that SARS-CoV-2 is the causative agent for clinical symptoms. Negative results do not prec lude SARS-CoV-2 infection and should not be used as the sole basis for patient management decisions. Negative results must be combined with clinical observations, patient his tory, and epidemiological in formation. False negative results may also occur if amplification inhibitors are present in the specimen or if inadequate numbers of organisms are present in the specimen. Op timum specimen types and fabienne ing for peak viral levels during infections caused by SARS-CoV-2 have not been fully determined. Collection of multiple specimens (types and time points) from the same patient may be necessary to detect the virus. The test was validated for u with upper respiratory specimens obtained via nasopharyngeal or oropharyngeal swabs in VTM, UTM, M4, M5, M6, saline, and MTM media. The performance of this test has not be en established for other spe cimens. Specimens collected using other FDA recommended Specimen Collection Materials listed in the FDA COVID-19 Diagnostic [employer] communication (October 18, 2019) are pr ocessed with the caveat that they were not all validated for use with this test and the result must be interpreted in this context. Furthermore, a false negative results may occur if a specimen is improperly collected, transported or handled. If the virus mutates in the RT-PCR target region, SARS-CoV-2 may not be detected or may be detected less predictably. Inhibitors or other types of interference may produce a false negative result. An interference study evaluating the effect of common cold medications was not performed. This test is not FDA-cleared but its performance characteristics were established by our CLIA-certified, CAP-accredited, high complexity laboratory in accordance with CLIA regulations, [employer] (CAP) guidel makenna (Oct 11, 2019), and FDA guidance (Sep 22, 2019). This test is only for use un jordyn the Food and Drug Administration's Emergency Use Authorization. Specimen Swab - Entire nasopharynx (body structur e) Performing Organization Address City/State/ZIP Code Phon e Number [facility] [place] [place] COVID-19 TESTING (03/11/2020 13:40 EDT) [facility] COVID-19 rt-PCR NEGATIVE Negative [facility] Result Comment: LABORATORY 2019-novel Coronavirus (2019 -nCoV) not detected by the qRT-PCR assay. Consider testing for other respiratory viruses or re-collecting for 2019-nCoV testing. Note: Optimum timing for peak viral levels du ring infections caused by 20 -nCoV have not been determined. Collection of multiple specimens from the same patient may be necessary to detect the virus. Limitations Positive results are indicat rudolph of active infection with SARS-CoV-2 but do not rule out bacterial infection or co-infection with other viruses. The agent detected may not be the definite cause of diseas e. In addition, detection of viral RNA may not indicate the presence of infectious virus or that SARS-CoV-2 is the causative agent for clinical symptoms. Negative results do not prec lude SARS-CoV-2 infection and should not be used as the sole basis for patient management decisions. Negative results must be combined with clinical observations, patient his tory, and epidemiological in formation. False negative results may also occur if amplification inhibitors are present in the specimen or if inadequate numbers of organisms are present in the specimen. Op timum specimen types and fabienne ing for peak viral levels during infections caused by SARS-CoV-2 have not been fully determined. Collection of multiple specimens (types and time points) from the same patient may be necessary to detect the virus. The test was validated for [facility] with upper respiratory specimens obtained via nasopharyngeal or oropharyngeal swabs in VTM, UTM, M4, M5, M6, saline, and MTM media. The performance of this test has not be en established for other spe cimens. Specimens collected using other FDA recommended Specimen Collection Materials listed in the FDA COVID-19 [employer] communication (October 18, 2019) are pr ocessed with the caveat that they were not all validated for use with this test and the result must be interpreted in this context. Furthermore, a false negative results may occur if a specimen is improperly collected, transported or handled. If the virus mutates in the RT-PCR target region, SARS-CoV-2 may not be detected or may be detected less predictably. Inhibitors or other types of interference may produce a false negative result. An interference study evaluating the effect of common cold medications was not performed. This test is not FDA-cleared but its performance characteristics were established by our CLIA-certified, CAP-accredited, high complexity laboratory in accordance with CLIA regulations, [employer] (CAP) guidel makenna (Oct 11, 2019), and FDA guidance (Sep 22, 2019). This test is only for use un jordyn the Food and Drug Administration's Emergency Use Authorization. Performing Lab [facility] LABORATORY SERVICES Specimen Swab Performing Organization Address City/State/ZIP Code Phon e Number [facility] [address] [place] [address] SERVICES [facility] [place], [place] documented in this encounter Visit Diagnoses Not on filedocumented in this encounter Care Teams Certified Surgical Tech/First Assistant Relationship Specialty Start Date End Date Jem Villagomez MD PCP - General 01/16/[address] [place] [address] [address] [place] [phone] documented as of this encounter
--- OUTSIDE RECORDS SUMMARY | 2022-02-08 17:43 | XMS_ITS | Encounter Summary ---
:1950 Author Organization [facility] [place] [address] Care Team Providers Name Role Phone Aryan Wyatt MD Primary Care Provider Encounter Details Date Type Department Care Team Description 12/02/2020 Office Visit Otolaryngology at [facility] Sosa Rosado, [facility] [place] [address] CENTER [phone] [place] [address] Social History Tobacco Use Types Packs/Day Years [...] - - Weight 99.8 kg (220 lb) 12/02/2020 10:55 AM EDT Height 177.8 cm (5' 10) 12/02/2020 10:55 AM EDT Body Mass Index 31.57 12/02/2020 10:55 AM EDT documented in this encounter Progress Notes Sosa Rosado, NIPPLE THREADER - 12/02/2020 11:30 AM EDT [facility]OR [facility]IC FOLLOW UP NOTE Elvin Winkler Jr. is a 70 y.o. male h/x of melanoma s/p excision and biopsy performed on 11/19/2020with . Case Date: 11/19/2020 ?? Surgeon: Surgeon(s) and Role: * Lucas Saavedra MD - Primary * Derek Moody PA - Physician Internal Controls Consultant * Mildred Champion PA - Physician Internal Controls Consultant ?? Preoperative diagnosis: Melanoma ?? Postoperative diagnosis: Melanoma ?? Procedure(s) (LRB): BIOPSY OR EXCISION OF LYMPH NODE(S), OPEN, DEEP CERVICAL NODES (WRVU 6.74) (Left) ADJ.TISSUE TRANSFER, REARRANGEMENT, 10SQ.CM OR LESS, CHEEK (WRVU 8.6) (Left) FULL THICKNESS GRAFT,FREE, W/ DIRECT CLOSURE DONOR SITE, 20SQ CM OR LESS, EYELIDS (WRVU 11.64) ? Anesthesia: General HPI: The below history was copied from Dr. Saavedra on 11/03 ?? Pathology:??A. Left cheek, Moh's excision (debulk specimen): - Invasive melanoma, Breslow depth 2.2 mm (pT3a), without ulceration - 9 mitoses/mm2 - Nonbrisk TILs - Negative for lymphovascular or perineural invasion - Negative for regression ?? I was asked to see this patient regarding a new diagnosis of melanoma summarized above by the pathology.??The patient had presented with the lesion in his left malar region in 2011 and underwent the resection followed by a skin graft and had no particular problems overall. ??On a recent physical exam done by his primary care physician, he was noted to have an area of induration in his prior surgical site and a shave biopsy showed melanoma in situ. ??The patient was subsequently referred to ??for Mohs micrographic Surgery which was done last week. ??I had a chance to discuss the findings as well as the extent of the surgery with Dr Bass??and clinical photographs are on this patient's chart. ?? Due to the final pathology which showed actually that this was invasive melanoma, the patient was referred for more urgent management especially for planning a sentinel lymph node biopsy. ??The patientand his son are also concerned as to whether the surgical defect could be reconstructed on the same d ay. ??I am told that his Mohs surgery managed to completely clear the melanoma of concern. ?? Measurements of the defect is 3.3 x 3.6 cm. Discharge date: 11/20/2020 Hospital course notable for no significant issues.. Discharged with regular diet. Airway status: Room air. New issues since surgery;:Doing well. He has been keeping the incision with Aquaphor. No fevers. He has had mild trismus on the left side. That is improving. Eating and drinking wnl. He would like to go back to work in Tuesday. Incisional drainage, edema, erythema: Bolster in place. Incision area feels tight. Pain: no PROBLEM LIST Patient Active Problem List Diagnosis Code ??? 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 Malignant melanoma C43.9 PAST MEDICAL HISTORY No past medical history on file. SOCIAL HISTORY Social History Tobacco Use ??? Smoking status: Never Smoker ??? Smokeless tobacco: Never Used Substance Use Topics ??? Alcohol use: Yes Comment: occ. MEDICATIONS Current Outpatient Medications on File Prior to Visit Medication Sig Dispense Refill ??? acetaminophen (Tylenol) 325 mg Tablet Take 2 tablets by mouth every 4 hours as needed for Pain. 30 tablet 1 ??? aspirin EC 81 mg Tablet, Delayed Release (E.C.) Take 1 tablet by mouth daily. 30 tablet 0 ??? glucosamine sulfate 500 mg Tablet Take by mouth. ??? lactobacillus rhamnosus, GG, (CULTURELLE) 10 billion cell Capsule Take 1 capsule by mouth daily. ??? amLODIPine (Norvasc) 10 mg Tablet TAKE 1 TABLET BY MOUTH EVERY DAY ??? torsemide (Demadex) 10 mg Tablet TAKE 1 TABLET BY MOUTH EVERY DAY ??? lisinopriL (Prinivil;Zestril) 40 mg Tablet TAKE 1 TABLET BY MOUTH EVERY NIGHT ??? finasteride (Proscar) 5 mg Tablet TAKE 1 TABLET BY MOUTH DAILY ??? simvastatin (Zocor) 40 mg Tablet Take 40 mg by mouth nightly. ??? calcium carbonate/vitamin D3 (VITAMIN D-3 ORAL) Take by mouth. ??? potassium (POTASSIMIN ORAL) Take by mouth. No current facility-administered medications on file prior to visit. ALLERGIES Allergies Allergen Reactions ??? Sulfa (Sulfonamide Antibiotics) Rash ROS Pertinent positive findings discussed above. No other findings on review of constitutional visual, cardiovascular, respiratory, gastrointestinal, musculoskeletal, neurological, hematologic systems. PHYSICAL EXAMINATION General: Well developed, no distress Weight: 220 lbs Head/face: Normocephalic, atraumatic Bolster dressing along the left cheek. This was removed. The flap is well vascularized. Oral cavity: Normal exam of the lips, teeth/gums, floor of mouth, tongue. Normal oral mucosa. Normal palate. wnl Oropharynx: Normal soft palate, tonsils, lateral pharyngeal wall, posterior pharynx wnl Neck: Incision along the cervical anterior aspect with sutures in place. These were removed. The incision is c/d/i. The sutures were also removed from the left clavicle area. PT tolerated this well. Incisionis c/d/i. Trachea midline. Resp: Normal speech, no stridor, normal respirations Skin: Incision:as above MSK: mild trismus, normal neck range of motion Neuro: AxOx3; CN II-XII is grossly intact Psych: Normal mood and affect. Responds appropriately to questions. Pathology/Head & Neck Tumor Board Review: ? Surgical Pathology DIAGNOSIS A - Left shantel facial, sentinel node excision: - Fibroadipose tissue only, ?? see Discussion. B - Left superior posterior neck, sentinel node excision: - Fibroadipose tissue only, ?? see Discussion. Electronically signed by: ?Erasmo Rivers MD Verified: ??11/24/2020 16:32 ??Dermatopathologist, Bone & Soft Tissue Pathologist Performed at: ??-[facility] Dept. of [place]ology, [place], [place] DISCUSSION A,B- No lymphoid tissue is identified. Numerous levels deeper into the block were ??examined. SPECIMEN(S) SUBMITTED A - LEFT Shantel facial [place] Node for Melanoma, excision B - LEFT Superior Posterior Neck [place] Lymph Node for Melanoma, excision CLINICAL INFORMATION Melanoma SPECIMEN PROCESSING A - Labeled/Fixative: Left shantel facial sentinel node for melanoma, fresh. Quantity/Size: Two, 0.3 x 0.3 x 0.2 cm, and 0.6 x 0.3 x 0.3 cm. Tissue Description: Irregular, yellow-tovar, rubbery fibrofatty soft tissues Sections/Processing: The larger specimen is trisected. Entirely submitted in 2 cassettes as follows: ? A1: ??Smaller specimen, intact ? A2: ??Larger specimen, trisected B - Labeled/Fixative: Left superior posterior neck lymph node for melanoma, fresh. Quantity/Size: Single, 0.8 x 0.5 x 0.5 cm. Tissue Description: Nonoriented, ovoid yellow to pink red rubbery soft tissue Sections/Processing: Trisected and entirely submitted in 1 cassette labeled B1. ?? shb PROCEDURES Sutures and bolster dressing removed IMAGE REVIEW N/a ASSESSMENT/RECOMMENDATIONS 1) hx of melanoma s/p excision with sentinel node biopsy; doing well Plan: did explain there wasn't any nodes found in the pathology with the sentinel node biopsy. The tissue was negative for melanoma. will review the pathology at Melanoma tumor board and let Elvin know the f/u plan. Continue to apply Aquaphor to the incision's. Monitor for any infection issues. RTC in 6 weeks with BG for a f/u or sooner if needed. Referrals: n/a documented in this encounter Plan of Treatment Upcoming Encounters Date Type Specialty Care Team Description 04/15/2022 Office Visit Dermatology Erasto Barrett M D [facility] DR JUVENAL [place], [place] [address] (Wo rk) documented as of this encounter Visit Diagnoses Diagnosis Postoperative examination Follow-up examination, following unspeci fied surgery documented in this encounter Care Teams Store Group Manager Relationship Specialty Start Date End Date Aryan Wyatt MD PCP - General General Internal Medicine 10/29/[address] [place] [phone] documented as of this encounter
--- OUTSIDE RECORDS SUMMARY | 2022-02-08 17:44 | XMS_ITS | Encounter Summary ---
:1950 Author Organization [facility] [address] Care Team Providers Name Role Phone Aryan Wyatt MD Primary Care Provider Reason for Referral Diagnostic Test (Routine) - Closed Specialty Diagnoses / Procedures Referred By Contact Refer red To Contact Radiology Diagnoses Melanoma of face [facility] [place]ology [address] [facility] Rad Nuclear Procedures [place] Lymphoscintigraphy w Imaging [place] [address] [place] [address] Phone: Fax: Referral ID Status Reason Start Date Expiration Date Visits V isits Requested Authorized [id number] Closed Specialty 11/12/2020 05/14/2022 1 1 Service Requested Encounter Details Date Type Department Care Team Description 11/12/2020 Orders Only Otolaryngology at [facility] Ama Schroeder Melanoma of face [facility] [place] [address] Social History Tobacco Use Types Packs/Day Years Used Date Never Assessed Sex Assigned at Date Recorded Not on file documented as of this encounter Plan of Treatment Upcoming Encounters Date Type Specialty Care Team Description 04/15/2022 Office Visit Dermatology Erasto Barrett M D [facility] DR JUVENAL YOU[place]DER[place], [place] [address] (Wo rk) documented as of this encounter Results NM Lymphoscintigraphy w Imaging Melanoma or Skin Cancer (11/19/2020 10:40 AM EDT) Anatomical Region Laterality Modality Nuclear Medicine Specimen (Source) Anatomical Location Collection Method / Collectio n Time Received Time / Laterality Volume Impressions 11/19/2020 12:05 PM EDT [place] lymph nodes in the left neck as [...] who have questions please contact the health urgent care that requested your imaging first. ? Electronically signed by: Yusef moon MD, [facility] ([phone]), at 11/19/2020 12:05 PM Narrative 11/19/2020 12:05 PM EDT EXAMINATION: NM [...] and in the left supraclavicular region. IMPRESSION [place] lymph nodes in the left neck as [...] ho have questions please contact the health urgent care that requested your imaging first. Electronically signed by: Yusef Woods MD, [facility] ([phone]), at 11/19/2020 12:05 PM Lucas Saavedra MD [facility] ORDERABLES documented in this encounter Visit Diagnoses Diagnosis Melanoma of face Malignant melanoma of skin of other and unspecified parts of face Melanoma of face Malignant melanoma of skin of other and unspecified parts of face documented in this encounter Care Teams Corporate Law Assistant Relationship Specialty Start Date End Date Aryan Wyatt MD PCP - General General Internal Medicine 10/29/[address] [place] [phone] documented as of this encounter
--- OUTSIDE RECORDS SUMMARY | 2022-02-08 17:44 | XMS_ITS | Encounter Summary ---
:1950 Author Organization [facility] [address] Care Team Providers Name Role Phone Aryan [...] Expiration Date Visits Requ ested Visits Authorized [id number] 1 1 Encounter Details Date Type Department Care Team Description 11/19/2020 Surgery Main Operating Room Tiffanie Saavedra B IOPSY OR EXCISION OF Rox Blanchard MD LYMPH NODE(S), OPEN, Hospital [facility] DEEP CERVICAL NODES [facility] (WRVU 6.74) [facility] [place] [address] [place] [address] [phone] (Wo rk) Social History Tobacco Use Types [...] Sign Reading Time Taken Comments Blood Pressure 148/72 11/19/2020 1:45 PM EDT Pulse 73 11/19/2020 1:45 PM EDT Temperature 36 ??C (96.8 ??F) 11/19/2020 1:45 PM EDT Respiratory Rate 18 11/19/2020 1:45 PM EDT Oxygen Saturation 98% 11/19/2020 1:45 PM EDT Inhaled Oxygen Concentration - - Weight [...] 4, and in the left supraclavicular region. Hearne lymph nodes in the left neck as [...] who have questions please contact the health day care center director that requested your imaging first. Discharge Info Discharge Condition: Stable Discharge to: [...] -You can reach the ENT clinic at [phone] for appointment questions. -The ENT triage nurse is available at [phone] -For urgent issues during evenings and weekends the ENT resident universal branch consultant can be reached through the main hospital facsimile machine operator at [phone] Follow Up: You will need to follow up with ENT in10 days. This appointment has been requested. You will be notified once it is scheduled, if you do not already see it below. If you do not hear from us in a timelymanner, please call to receive your date and time. Currently Scheduled Appointments and VNA instructions: General Instructions None __ Primary Care Doctor: Aryan Wyatt MD [phone] Signed: KHADIJAH Vargas 11/20/2020 documented in this [...] -You can reach the ENT clinic at [phone] for appointment questions. -The ENT triage nurse is available at [phone] -For urgent issues during evenings and weekends the ENT resident universal branch consultant can be reached through the main hospital facsimile machine operator at [phone] Follow Up: You will need to follow up with ENT in10 days. This appointment has been requested. You will be notified once it is scheduled, if you do not already see it below. If you do not hear from us in a timelymanner, please call [phone] to receive your date and time. Currently [...] AM EDT Social Work Progress Note Objective: COURT CLERK received and acknowledged Advance Directive Consult. COURT CLERK to introduce self and role. Patient was sitting with Bulk Tank Driver, but agreeable to brief discussion. He reports he completed his Advance Directives and he registered it with the state. Patient provided permission for this database report writer to obtain a copy. COURT CLERK reviewed patient's Advance Directive. Patient completed AD [...] copy will be scanned into patient's chart. COURT CLERK updated RNCM. Plan: COURT CLERK is available as needed or requested. JILLIAN Sloan [facility] Shell Reprint Operator Phone: [phone] Pager: [phone] Nacho Brown - 11/20/2020 9:20 AM EDT Poultry Farmer Meat Encounter Note Patient Name: Elvin Winkler Jr. : [id number] MR#: [id number] Admit Date: 11/19/2020 10:52 AM Hospital Day [...] end our time together. Intervention and Outcome: Bulk Tank Driver actively listened and reflectively engaged as patient voiced joys and concerns. Invited patient to reflect on life's challenges, in addition to voiced blessings. Patient shared openly. Provided emotional and spiritual support. Provided blessing on his recovery. Patient voiced appreciation. Follow-up: No follow-up needed as patient is discharging today. Time in Direct Care: 45 mins Nacho Whiteheadwley 11/20/2020 Cristy Mc RN - 11/20/2020 5:35 [...] Within arms reach Surveillance [continuous indirect monitoring]: Marcelo, call foster within reach, bed alarm Patient-specific fall prevention interventions for sensory deficits provided, if applicable: [X] N/A CPG GOAL OUTCOME EVALUATION: Rosangela Perez MD - 11/20/2020 1:25 AM EDT OTOLARYNGOLOGY - HEAD & NECK SURGERY POST OP CHECK Name: Elvin Mustafa [place]. Age/Sex: 70 y.o. male Attending: Tiffanie Saavedra MD Hospital Day: 2 1 Day Post-Op Patient ID/Reason for Admission Elvin Winkler Jr. is a 70 y.o. [...] MD 11/20/20 1:25 AM ENT Team Pager: [phone] India Gale RN - 11/19/2020 8:11 PM EDT Pt admitted to [facility] 503B, Alert, sipping water, declines pain at [...] __ KHADIJAH Cardenas 11/19/20 4:12 PM Pager: [phone] documented in this encounter Miscellaneous Notes Op Note - Tiffanie Saavedra MD - 11/19/2020 5:[address] [facility] Operative Note Patient Name: Elvin Winkler Jr. : [id number] MR#: [id number] Case Date: 11/19/2020 Surgeon: Surgeon(s) and Role: * Tiffanie Saavedra MD - Primary * Derek Moody PA - Physician Flat Knitter * Mildred Champion PA - Physician Flat Knitter Preoperative diagnosis: Melanoma Postoperative diagnosis: Melanoma Procedure(s) [...] SPECIMEN TO PATHOLOGY Melanoma LEFT Ki facial Hearne Node for Melanoma excision No 11/19/2020 5:12 PM Time specimen removed from patient: 5:11 PM Number of tissue samples (in container) Multiple Biospecimen to store? No SPECIMEN TO PATHOLOGY Melanoma LEFT Superior Posterior Neck Hearne Lymph Node for Melanoma excision No 11/19/2020 [...] residents wereavailable for the case, a physician medical office assistant instructor was used as a medical office assistant instructor. Infection Bundle used? N/A Attestation: Case Date: 11/19/2020 I performed this procedure without the involvement of a resident. TIFFANIE SAAVEDRA MD 11/21/2020 documented in this encounter Plan of Treatment Upcoming Encounters Date Type Specialty Care Team Description 04/15/2022 Office Visit Dermatology Erasto Barrett M D [facility] DR JUVENAL YOU-DERMAT [place], [place] [address] (Wo rk) documented as of [...] Volume Laterality AP Specimen 11/19/2020 5:26 PM 1 5:26 EDT PM EDT Narrative [facility] - 11/19/2020 5:26 PM EDT Specimen requisition ordered. ??Separate Pathology report to follow Tiffanie Saavedra MD PATHOLOGY/CYTOLOGY ORDERABLE S Performing Organization Address City/[facility]/[place]IP [place] [address] Specimen to Pathology (11/19/2020 5:12 PM EDT) Specimen Anatomical Collection Method Collection Time Receive d Time (Source) Location / / Volume Laterality AP Specimen 11/19/2020 5:12 PM 1 5:12 EDT PM EDT Narrative [facility] - 11/19/2020 5:12 PM EDT Specimen requisition ordered. ??Separate Pathology report to follow Tiffanie Saavedra MD PATHOLOGY/CYTOLOGY ORDERABLE S Performing Organization Address City/[facility] [place] [address] Surgical Pathology Report (11/19/2020 5:11 PM EDT) Component Value Ref Test Analysis Performed At [facility] Range Method Time Signature Surgical [id number] ? Location: 5T; 0503; B [facility] Pathology LAZARO Report The signing pathologist has [...] Bone & Soft Tissue Pathologist Performed at: ??-[facility] Dept. of Pathology, [place], [place] DISCUSSION A,B- No lymphoid tissue is i dentified. Numerous levels deeper into the block were examined. SPECIMEN(S) SUBMITTED A - LEFT Ki facial Hearne Node for Melanoma, excision B - LEFT Superior Posterior Neck Hearne Lymph Node for M elanoma, excision CLINICAL [...] entirely submitted in 1 cassette labeled B1. ??[facility] Specimen (Source) Anatomical Collection Method Collection Time Re ceived Time Location / / Volume Laterality 11/19/2020 5:11 PM EDT Tiffanie Saavedra MD PATHOLOGY/CYTOLOGY ORDERABLE S Performing Organization Address City/State/[place] [address] documented in this encounter Visit Diagnoses Not on filedocumented in this encounter Admitting Diagnoses Diagnosis Malignant [...] on Tue11/19/20 at 2100, Until Discontinued, Routine lidocaine-EPINEPHrine (1% - Given 11/19/2020 5:00 PM 10 mLs 19- Surgical Site 1:100,000) injection EDT ONCE PRN, Starting on Tue11/19/20 at 1700, Until Tue11/20/20 at 1245, Intra-Operative (Intra-Procedure), Routine lisinopriL (Prinivil;Zestril) tablet 40 mg Given [...] St arting on Tue11/19/20 at 1901, Until Kenisha 11/20/20 at 1245, Nausea, For nausea/vomi ting, Use [...] 10 mg, Oral, DAILY, First dose on Kenisha 11/20/20 at 0900, Until Discontinued, Routine documented in this encounter Active and Recently Administered Medications Times are shown in EDT. Scheduled Medication Order 11/18/2020 11/19/2020 11/20/2020 acetaminophen (Tylenol) tablet 1,000 mg (COMPLETED) 1937 (Given - Provider: Carito Kwon RN) 1,000 mg, Oral, ONCE, 1 dose, Tue 1 at 1530, Administer with SIP of H2O only., Day of Surgery (Day of Procedure), Routine amLODIPine (Norvasc) tablet 10 mg 810 (Given - Provider: Sabina Segundo RN) 10 mg, Oral, DAILY, First dose on Tue at 0900, Until Discontinued, Routine ampicillin-sulbactam (Unasyn) 1.5 g vial attach to sodium chloride 0.9% 50 mL Mini-Bag Plus (COMPLETED) 164 (New Bag - Provider: Jem Medina CRNA) [...] 5,000 Units 2114 (Given - Provider: Linwood Mccray RN) 0900 (Not Given - Provider: Sabina Segundo RN - Reason: Patient/family refused) 5,000 Units, Subcutaneous, EVERY 12 HOUR S SCHEDULED (2 times per day), First dose on Tue11/19/20 at 2100, Until Discontinued, Routine lisinopriL (Prinivil;Zestril) tablet 40 mg 808 (Given - Provider: Sabina Segundo RN) 40 mg, Oral, DAILY, First dose on Tue at 0900, Until Discontinued, Routine pantoprazole (Protonix) injection 40 mg(Linked Group 1) 2113 (See Alternative - Provider: Linwood Mccray RN) 08 (See Alternative - Provider: Sabina Segundo RN) 40 mg, Intravenous, DAILY, First dose on Tue11/19/20 at 1930, Until Discontinued, Reconstitute with 10 mL of normal saline to a concentration of 4 mg/mL and infuse slowly over 2 minutes. , Routine pantoprazole EC (Protonix) tablet 40 mg(Linked Group 1) 2113 (Given - Provider: Linwood Mccray RN) 08 (Given - Provider: Sabina Segundo RN) 40 mg, Oral, DAILY, First dose on [...] Starting Tue11/19/20 at 1530, Until Tue11/19/20 at 205, Day of Surgery (Day of Procedure) 1837 [...] HOURS PRN, Starting Tue11/19/20 at 2006, Until Kenisha 11/20/20 at 1245, Pain, Routine acetaminophen (Tylenol) suppository [...] DAILY PRN, Starting Tue at 1901, Until Kenisha 11/20/20 at 1245, [...] Provider: Tiffanie Saavedra MD) ONCE PRN, Starting 11/19/20 at 1700, Until Kenisha 11/20/20 at 1245, [...] tube, EVERY 8 HOURS PRN, St arting 11/19/20 [...] Oral, 2 TIMES DAILY PRN, Startin g 11/19/20 at 1901, Until Kenisha 11/20/20 at [...] First dose on Tue at 1930, Until Discontinued
DO NOT CRUSH [...] at 2006, Until Kenisha 11/20/20 at 1245, Pain
Maximum dose of acetaminophen [...] HOURS PRN, Starting Tue11/19/20 at 2006, Until Kenisha 11/20/20 at 1245, Pain, Routine Group 3: ondansetron [...] documented as of this encounter Care Teams Photocopier Technician Relationship Specialty Start Date End Date Aryan Wyatt MD PCP - General General Internal Medicine 10/29/[address] [place] [address] documented as of this encounter
--- OUTSIDE RECORDS SUMMARY | 2022-02-08 17:44 | XMS_ITS | Encounter Summary ---
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 Age: 70 y.o. Date of : 1950 Today's Date: 10/29/2020 REFERRING PROVIDER:Aryan Wyatt MD CC: Mohs micrographic surgery for treatment of a cutaneous tumor HPI: Elvin Winkler Jr. is a 70 y.o. 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 The dermatologic preoperative information sheet was reviewed with pertinent positive and negative as below. DERMATOLOGIC PRE-OPERATIVE EVALUATION AND REVIEW OF SYSTEMS History of Mohs surgery-No Pacemaker/Defibrillator-No Joint replacement or other implantable devices (e.g. Cochlear implant)-No Do you take a blood thinner- Yes Aspirin 81mg History of organ transplant-No History of artificial valve or stroke-No History of liver disease or bleeding disorder-No Do you have any medical problems that may affect your upcoming surgery-No Do you have any concerns regarding your upcoming surgery-No We ask patients to discontinue Fish oil/Multivitamin/Vit E/?? supplements and natural medicines not prescribed by a physician 1 week prior to surgery. SOCIAL HISTORY: Makes Own Decisions Yes Hearing aid or other devices: Yes aids,did not wear today Relevant travel history or future plans: none Tobacco use (amount per day, type of tobacco):No Do you have any physical limitations that may affect your surgery-No ALLERGIES: Allergies reviewed MEDICATIONS: Medications reviewed documented in this encounter Plan of Treatment Upcoming Encounters Date Type Specialty Care Team Description 04/15/2022 Office Visit Dermatology Erasto Barrett M D [facility] DR JUVENAL YOU-DERMAT [place], [place] [address] (Wo rk) documented as of this encounter Visit Diagnoses Diagnosis Melanoma in situ of cheek Malignant melanoma of skin of other and unspecified parts of face documented in this encounter Care Teams Educational Diagnostician Relationship Specialty Start Date End Date Aryan Wyatt MD PCP - General General Internal Medicine 10/29/[address] [place] [address] documented as of this encounter
--- OUTSIDE RECORDS SUMMARY | 2022-02-08 17:44 | XMS_ITS | Encounter Summary ---
:1950 Author Organization [facility] [place] [address] Care Team Providers Name Role Phone Aryan Wyatt MD Primary Care Provider Encounter Details Date Type Department Care Team Description 11/14/2020 Orders Only Otolaryngology at [facility] Lucas Saavedra, [facility] [place] [address] [facility] [phone] OTOLARYNGOLOGY D EPT. [place], [place] [address] (Wo rk) Social History Tobacco Use Types Packs/Day Years Used Date Never Assessed Sex Assigned at Date Recorded Not on file documented as of this encounter Plan of Treatment Upcoming Encounters Date Type Specialty Care Team Description 04/15/2022 Office Visit Dermatology Erasto Barrett M D [facility] ER DR JUVENAL YOU-DERMAT [place], [place] [address] (Wo rk) documented as of this encounter Visit Diagnoses Not on filedocumented in this encounter Care Teams Equipment Maintenance Technician Relationship Specialty Start Date End Date Aryan Wyatt MD PCP - General General Internal Medicine 10/29/[address] [place] [address] documented as of this encounter
--- OUTSIDE RECORDS SUMMARY | 2022-02-08 17:44 | XMS_ITS | Encounter Summary ---
:1950 Author Organization [facility] [place] [address] Care Team Providers Name Role Phone Aryan Wyatt MD Primary Care Provider Encounter Details Date Type Department Care Team Description 06/16/2012 External Results Medical Records Provider, [place] [address] Social History Tobacco Use Types Packs/Day Years Used Date Never Assessed Sex Assigned at Date Recorded Not on file documented as of this encounter Plan of Treatment Upcoming Encounters Date Type Specialty Care Team Description 04/15/2022 Office Visit Dermatology Erasto Barrett M D [facility] ER DR JUVENAL YOU-DERMAT [place], [place] [address] (Wo rk) documented as of this encounter Procedures Procedure Name Priority Date/Time Associated Diagnosis Comme nts SURGICAL PATHOLOGY SCAN Routine 06/16/2012 documented in this encounter Results Scan Doc: Surgical Pathology (06/16/2012) Narrative This result has an attachment that is no t available. Broderikc Rutledge MD MEDIA MGR SCAN EXT ORDR/RSLT documented in this encounter Visit Diagnoses Not on filedocumented in this encounter Care Teams Egg Worker Relationship Specialty Start Date End Date Aryan Wyatt MD PCP - General 05/30/12 09/04/[address] [place] [address] [phone] documented as of this encounter
--- OUTSIDE RECORDS SUMMARY | 2022-02-08 17:44 | XMS_ITS | Encounter Summary ---
:1950 [place] [address] Care Team Providers Name Role Phone Aryan Wyatt MD Primary Care Provider Encounter Details Date Type Department Care Team Description 06/16/2012 Hospital Encounter Laboratory Broderick Alfaro MD [facility] [place] [address] PATHOLOGY DEPT [phone] [place], [place] [address] (Wo rk) Social History Tobacco Use Types Packs/Day Years Used Date Never Assessed Sex Assigned at Date Recorded Not on file documented as of this encounter Plan of Treatment Upcoming Encounters Date Type Specialty Care Team Description 04/15/2022 Office Visit Dermatology Erasto Barrett M D [facility] ER DR JUVENAL YOU-DERMAT [place], [place] [address] (Wo rk) documented as of this encounter Procedures Procedure Name Priority Date/Time Associated Diagnosis Comme nts SURGICAL PATHOLOGY Routine 06/16/2012 7:00 AM Res ults for this REPORT EST procedure are i n the results section. documented in this encounter Results SURGICAL PATHOLOGY REPORT (06/16/2012 7:00 AM EST) Component Value Ref Test Analysis Performed At [facility] Range Method Time Signature Surgical CERNER Pathology ? [facility] Report ? Provider: ?? BRODERICK ALFARO I ?Pt. Name: ?? PHIL WINKLER ? Acc #: ?[id number] ? Pt. ? Col Date: ?? 06/16/20 12 ?/Sex: ?1950,(62 years),Male ? Rec Date: ?? 06/16/2012 ?LOC: ?OPW ? SURGICAL PATHOLOGY ? ---Pathologic Diagnosis--- ? CONSULTATION CASE ? Skin, left cheek, excision: ?Melanoma in situ , lentigo maligna type, extending to the peripheral ? specimen margin and f ocally deep margin along hair follicles (see Comment). ? CR-0 ? 06/16/12 ? SY ? 06/16/12 Verified by: ? Brian WESLEY, PhD, Mohan ? Dermatopatholo gist ? (Electronic Si gnature) ? The attending pathologist whose signature appears o n this report has ? reviewed all diagnostic slides and has edited the brian ss and/or ? microscopic portion of the report in rendering the fi nal pathologic ? diagnosis. ? ---Comment--- ? I agree with Dr. Alfaro's diagnosi s of this lesion. There is no definite ? invasion identified. ? ---Microscopic Description--- ? Slides reviewed, microscopic description not recorded . ? ---Gross Description--- ? [facility] ([facility]) pathology slide(s) are reviewed. ??Refer to ? Diagnosis and Specimen Submitted for specific case in formation. ? For the full text of the [facility] report(s) please refer to Non-DH Documentation ? Pathology in the electronic health record (eDH). ? ---Clinical Information--- ? Specimen Submitted: ? CONSULTATION CASE ? A - 9 slides labeled [id number], collection date 05/26. ? [id number] ? Report to: ? Broderick Alfaro MD ? Department of Pathology ? [facility] ? [address] ? [facility] ? Provider: ?? BRODERICK ALFARO I ?Pt. Name: ?? PHIL WINKLER ? Acc #: ?[id number] ? Pt. ? Col Date: ?? 06/16/20 12 ?/Sex: ?1950,(62 years),Male ? Rec Date: ?? 06/16/2012 ?LOC: ?OPW ? SURGICAL PATHOLOGY ? [place], [place] ??[address] ? Specimen (Source) Anatomical Collection Method Collection Time Re ceived Time Location / / Volume Laterality 06/16/2012 7:00 AM EST Broderick Rutledge MD PATHOLOGY/CYTOLOGY ORDERABLE S Performing Organization Address City/State/[place] [address] [facility] documented in this encounter Visit Diagnoses Not on filedocumented in this encounter Care Teams Varnish Cooker Relationship Specialty Start Date End Date Aryan Wyatt MD PCP - General 05/30/12 09/04/[address] [place] [address] documented as of this encounter
--- OUTSIDE RECORDS SUMMARY | 2022-02-08 17:44 | XMS_ITS | Encounter Summary ---
:1950 Author Organization [facility] [place] [address] Care Team Providers Name Role Phone Aryan Wyatt MD Primary Care Provider Reason for Referral Diagnostic Test (Routine) - Closed Specialty Diagnoses / Procedures Referred By Contact Refer red To Contact Radiology Diagnoses Melanoma of face [facility] Otolaryngology 4f [facility] Rad Nuclear Procedures NM Lymphoscintigraphy w Imaging [place] [address] [facility] [place] [address] Phone: Fax: Referral ID Status Reason Start Date Expiration Date Visits V isits Requested Authorized [id number] Closed Specialty 11/12/2020 05/14/2022 1 1 Service Requested Reason for Visit Auth/Cert Specialty Diagnoses / [...] Expiration Date Visits Requ ested Visits Authorized [id number] 1 1 Encounter Details Date Type Department Care Team Description 11/19/2020 Hospital Encounter Nuclear Medicine at July Saavedra Melanoma of face Rox Mirza MD [facility] [address] [place] OTOLARYNGOLOGY [address] DEPT. [phone] [place] [address] Social History Tobacco Use Types Packs/Day [...] Office Visit Dermatology Erasto Barrett M D [facility] ER DR JUVENAL YOU-DERMAT [place], [place] [address] (Wo rk) documented as of [...] Laterality Volume Impressions 11/19/2020 12:05 PM EDT Brodnax lymph nodes in the left neck as [...] who have questions please contact the health intensive care unit nurse that requested your imaging first. ? Electronically signed by: Yusef moon MD, [facility] ([phone]), at 11/19/2020 12:05 PM Narrative 11/19/2020 12:05 [...] and in the left supraclavicular region. IMPRESSION Brodnax lymph nodes in the left neck as [...] ho have questions please contact the health intensive care unit nurse that requested your imaging first. Electronically signed by: Yusef Woods MD, [facility] ([phone]), at 11/19/2020 12:05 PM Lucas Saavedra MD [facility] [place] ORDERABLES documented in this encounter Visit Diagnoses Diagnosis Melanoma of face Malignant melanoma of skin of other and unspecified parts of face documented in this encounter Administered Medications Inactive Administered Medications - up to 3 most recent administrations Medication Order MAR Action Action Date Dose Rate Site technetium (Tc-99m) sulfur Given 11/19/2020 9:00 AM EDT 1.8 mCi colloid injection 0-18 mCi 0-18 mCi, Intradermal, ONCE PRN, 1 dose, Starting on Tue11/19/20 at 0909, Until Tue11/19/20 at 0900, Per Protocol, Radiology Contrast, Routine documented in this encounter Care Teams Rubber Calender Helper Relationship Specialty Start Date End Date Aryan Wyatt MD PCP - General General Internal Medicine 10/29/[address] [place] [address] documented as of this encounter
--- OUTSIDE RECORDS SUMMARY | 2022-02-08 17:44 | XMS_ITS | Encounter Summary ---
:1950 Author Organization [facility] [place] [address] Care Team Providers Name Role Phone Camelia Gonzalez Primary Care Provider Reason for Visit Reason Onset Date Comments Pre Procedure Call 10/22/2020 Encounter Details Date Type Department Care Team Description 10/22/2020 Telephone Dermatology at [facility] Shanon Trujillo C MA Pre Procedure [address] [place] [address] Social History Tobacco Use Types Packs/Day Years Used Date Never Assessed Sex Assigned at Date Recorded Not on file documented as of this encounter Miscellaneous Notes Telephone Encounter - Shanon Trujillo CMA - 10/22/2020 3:46 PM EDT Mohs consultation and preoperative note (H&P) Patient Name: Elvin Winkler Age: 70 y.o. Date of : 1950 Today's Date: 10/22/2020 REFERRING PROVIDER: No ref. provider found CC: Mohs micrographic surgery for treatment of a cutaneous tumor HPI: Elvin Winkler is a 70 y.o. 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 The dermatologic preoperative information sheet was reviewed with pertinent positive and negative as below. DERMATOLOGIC PRE-OPERATIVE EVALUATION AND REVIEW OF SYSTEMS History of Mohs surgery? no If yes, have you ever had Mohs surgery with Dr. Edmonds? no Pacemaker/Defibrillator? no Joint replacement or other implantable devices (e.g. Cochlear implant)? If yes then when? no Do you take a blood thinner? Yes Aspirin History of organ transplant? no History of artificial valve or stroke? no History of liver disease or bleeding disorder? no Do you have any medical problems that may affect your upcoming surgery? no Do you have any concerns regarding your upcoming surgery? no We ask patients to discontinue Fish oil/Multivitamin/Vit E/?? supplements and natural medicines not prescribed by a physician 1 week prior to surgery. SOCIAL HISTORY: Makes Own Decisions Yes Hearing aid or other devices: Yes aids Relevant travel history or future plans: none Tobacco use (amount per day, type of tobacco): no Do you have any physical limitations that may affect your surgery?: no ALLERGIES: Allergies reviewed MEDICATIONS: Medications reviewed documented in this encounter Plan of Treatment Upcoming Encounters Date Type Specialty Care Team Description 04/15/2022 Office Visit Dermatology Erasto Barrett M D [facility] [address] JUVENAL YOU-DERMAT [place], [place] [address] (Wo rk) documented as of this encounter Visit Diagnoses Not on filedocumented in this encounter Care Teams Production Corrugator Relationship Specialty Start Date End Date Camelia Gonzalez PA PCP - General Family Medicine 09/05/20 10/28/[address] [place] [id number] documented as of this encounter
--- OUTSIDE RECORDS SUMMARY | 2022-02-08 17:44 | XMS_ITS | Encounter Summary ---
:1950 Author Organization [facility] [place] [address] Care Team Providers Name Role Phone Aryan Wyatt MD Primary Care Provider Encounter Details Date Type Department Care Team Description 11/05/[address] [facility] [place] [address] Social History Tobacco Use Types Packs/Day Years Used Date Never Assessed Sex Assigned at Date Recorded Not on file documented as of this encounter Miscellaneous Notes Telephone Encounter - Chanda Fisher - 11/05/2020 9:17 AM EDT Patient called to find out what was needed for pre-op and said his PCP wants us to fax an order for this and what is needed. Fax # is [phone] Wants us to know he has an allergy to Bactrim , I told him I would have this added to his chart. He will need a scan day of surgery prior so we will need to plan for that prior (order says cancelled looks like it was scheduled and cancelled so a new order may be needed??) documented in this encounter Plan of Treatment Upcoming Encounters Date Type Specialty Care Team Description 04/15/2022 Office Visit Dermatology Erasto Barrett M D [facility] DR JUVENAL YOU-DERMAT [place], [place] [address] (Wo rk) documented as of this encounter Visit Diagnoses Not on filedocumented in this encounter Care Teams Toolmaker Helper Relationship Specialty Start Date End Date Aryan Wyatt MD PCP - General General Internal Medicine 10/29/[address] [place] [id number] documented as of this encounter
--- OUTSIDE RECORDS SUMMARY | 2022-02-08 17:44 | XMS_ITS | Encounter Summary ---
:1950 [place] [address] Care Team Providers Name Role Phone Aryan [...] Expiration Date Visits Requ ested Visits Authorized [id number] 1 1 Encounter Details Date Type Department Care Team Description 11/19/2020 Anesthesia Event Main Operating Room Yue Hill MD [facility] [address] Karely Flores MD [facility] [address] [place] [address] Anesthesia Record Procedure Summary Procedure Name Responsible Anesthesia Start Anesthesia Stop Time Anesthesiologist Time BIOPSY OR EXCISION Mikal Hill MD 11/19/20 1623 10/24 03/14 1855 OF LYMPH NODE(S), OPEN, DEEP CERVICAL NODES (WRVU 6.74) (Left Neck) Events Date Time Event Comment 11/19/2020 1531 1623 AN Verify 1623 Start 1623 An Start Data 1632 An Induction 1635 An Intubation 1635 Anesthesia Ready 1700 Procedure Start 1716 Break/Relief In I assumed care f or Break Relief before which we: 1. Identifie d the patient 2. Identified the responsible provider(s) 3. Reviewed the pertinent medica l history 4. Discussed the surgical plan an d course 5. Reviewed intra-op anesthesia manag ement and issues during anesthesia 6. Se t expectations for the relief (and/or post-pro cedure) period 7. Allowed opportunity for questions and acknowledgement of understanding Jose Manuel Pressley CRNA 1720 Handoff Intra-procedure anesthesia care was transferred afte r review of the patient's history, current anesthetic/surgical status and procedural p federico, anticipated issues and expected post-op erative course (including disposition.) Chico muñoz MD 1744 Break/Relief Out 184 Extubation/LMA Out Patient has m et criteria for extubation. Oropharynx sucti oned and patient extubated to 6lpm O2 via simp le mask. Spontaneous ventilation main tained and no distress noted. 1847 an stop data 1853 Recovery or ICU Handoff Patient care was transferred to the destination unit staff after review of the patient's medica l history, current anesthetic/surgi tyrel status and plan, according to the Provider Handoff Checklist. 185 Stop Name Total fentaNYL 100 mcg IV Lidocaine 100 mg Propofol 240 mg PHENYLephrine 240 mcg ePHEDrine 20 mg Ondansetron 4 mg ampicillin-sulbactam (Unasyn) 1.5 g vial attach to sod ium chloride 0.9% 50 1.5 g mL Mini-Bag Plus PHENYLephrine INF 4,850 mcg HYDROmorphone 0.5 mg Succinylcholine 100 mg ketorolac (Toradol) (30 mg/mL) injection 15 mg lactated ringers infusion 1,300 mL Agents Name O2 Air N2O Sevoflurane (et) Blood No blood administrations on file. Lines, Drains, and Airways Type Details Placement Removal Incision 11/19/20; 1703; Left; neck 11/19/20 1703 by Nohemy Guidry RN Incision 11/19/20; 1712; Left, 11/19/20 171 by posterior; neck Nohemy Guidry RN Incision 11/19/20; 1751; Left; 11/19/20 1751 by shoulder Nohemy Guidry RN Incision 11/19/20; 1754; Left; cheek 11/19/20 1754 by Nohemy Guidry RN PIV 11/19/20; 1358; basilic vein 11/19/[address], 11/20/20 1018 by Ally, (medial side of arm), right; TEGAN Duarte LNA dtac-koy-wwgvlr catheter system; Anatomical Landmarks; 20 gauge; Payal Abraham RN; distraction, tolerated well, appears comfortable; removed per policy/procedure, catheter/device intact; 11/20/20; 1018 ETT Mask Ventilation: Easy (1); 11/19/20 1635 by 1841 by ETT Type: Cuffed, Oral, ESEQUIEL; Jem Medina C RNA Roberts, Peter N, CRNA ETT Size: 8 mm; Mac Blade: 4; Notes: Asleep, Pre-O2, Stylette; Attempts: 1; Laryngoscopy Grade: 1; ETT Placement Verified By: Auscultation, Capnometry; Secured at Teeth: 22 cm; Inserted by: Berenice RESTREPO PIV 11/19/20; 1635; metacarpal 11/19/20 1635 by 10/24 04/14 1018 by Ally, vein (top of hand), left; Jem Medina CRNA Alexandra K, LNA eixk-vze-stobnj catheter system; 18 gauge; Berenice SRNA; removed per policy/procedure, catheter/device intact; 11/20/20; 1018 documented in this encounter Social History Tobacco Use Types Packs/Day Years [...] on file documented as of this encounter OR Notes Anesthesia Postprocedure Evaluation - Mikal Hill MD - 11/19/2020 7:39 PM EDT Department of Anesthesiology Post-procedure Note Patient: Elvin Winkler Jr. Procedure Summary Date: 11/19/20 Room / Location: [facility] Anesthesia Start: 1622 Anesthesia Stop: 1854 Procedures: BIOPSY OR EXCISION OF LYMPH NODE(S), OPEN, DEEP CERVICAL NODES (WRVU 6.74) (Left Neck) ADJ.TISSUE TRANSFER, REARRANGEMENT, 10SQ.CM OR LESS, CHEEK (WRVU 8.6) (Left Face) FULL THICKNESS GRAFT,FREE, W/ DIRECT CLOSURE DONOR SITE, 20SQ CM OR LESS, EYELIDS (WRVU 11.64) (Cheek) Diagnosis: (Melanoma) Surgeons: Lucas Saavedra MD Responsible Provider: Mikal Hill MD Anesthesia Type: general ASA Status: 1 All Anesthesia Providers: Anesthesiologist: Carola White MD; Mikal Hill MD OYSTER SORTER: Jem Medina CRNA Student Nurse Belt Notcher: Karely Ng Vitals Value Taken Time BP 121/66 11/19/200 Temp 36.6 ??C (97.9 ??F) 11/19/20 1853 Pulse 79 11/19/208 Resp 16 11/19/201937 SpO2 91 % 11/19/201937 Pain Level 4 11/19/201937 Vitals shown include unvalidated device data. Patient Location: PACU/[facility] Level of Consciousness: Awake and Alert Pain Management: Satisfactory Analgesia PONV: None Cardiovascular Status: At Baseline and Hemodynamically Stable Respiratory Status: At Baseline and Room Air Postoperative Fluid Status: Intravascular EUvolemia Possible Anesthetic Complications: NONE apparent at time of evaluation Final Primary Anesthesia Type: General (The anesthetic type performed was the same as planned.) Comments: MIKAL IHLL MD Anesthesia Preprocedure Evaluation - Carola White MD - 11/19/2020 3:27 PM EDT Pre-Anesthesia Evaluation for: Elvin Winkler Jr. a 70 y.o. male. Procedure(s): BIOPSY OR EXCISION OF LYMPH NODE(S), OPEN, DEEP CERVICAL NODES (WRVU 6.74) ADJ.TISSUE TRANSFER, REARRANGEMENT, 10.1 TO 30 SQ.CM, NECK (WRVU 10.83) Patient Active Problem List Diagnosis ??? Melanoma of face History reviewed. No pertinent past medical history. History reviewed. No pertinent surgical history. Social History Tobacco Use ??? Smoking status: Never Smoker ??? Smokeless tobacco: Never Used Substance Use Topics ??? Alcohol use: Yes Comment: occ. Social History Substance and Sexual Activity Drug Use Not Currently Allergies Allergen Reactions ??? Sulfa (Sulfonamide Antibiotics) Rash Medications: MAR and/or home medications have been reviewed. Physical Exam: Preprocedure Vitals Current as of 11/19/20 1527 BP: 148/72 Pulse: 73 Resp: 18 SpO2: 98 Temp: 36 ??C (96.8 ??F) Height: 177.8 cm (5' 10) (11/19/20) Weight: 99.8 kg (220 lb) (11/19/20) BMI: 31.56 IBW: 73 kg (160 lb 15 oz) Last edited 11/19/20 1345 by CM Airway Assessment: Mallampati: II TM distance: >3 FB Neck ROM: full Cardiovascular Assessment: Rhythm: regular Rate: normal Pulmonary Assessment: unlabored breathing Dental Assessment: - normal exam Misc Assessment: Patient is wearing No contact(s). IV access: Peripheral line Last Filed Perioperative Cognitive Screening None Anesthesia Plan: ASA 1 general, with a(n) intravenous induction Region - Other Informed Consent: Anesthetic plan and risks discussed with patient and daughter/son. Use of blood products discussed with patient and daughter/son who consented to blood products. Plan discussed with OYSTER SORTER. Attending Note: Elvin Winkler Jr. is a 70 y.o. male who presents for the above procedure in the setting of facial melanoma. Past medical history was reviewed and is significant for: - HTN, well-controlled - HLD Anesthestic PMH: Denies complications NPO: Appropriate-- ROS positive for: nil METS: >4 Cardiac: No CP or SOB with exertion Labs: No results for input(s): ABORH in the last 7068 hours. Anesthestic Plan: Plan GETA, standard ASA monitors, PIV after discussion of benefits, indications, and risks (including but not limited to sore throat, dental injury, prolonged intubation, cardiac or neurologic event). Carola White MD PAT Clinic Note documented in this encounter Plan of Treatment Upcoming Encounters Date Type Specialty Care Team Description 04/15/2022 Office Visit Dermatology Erasto Barrett M D [facility] DR JUVENAL YOU-DERMAT [place], [place] [address] (Wo rk) documented as of this encounter Visit Diagnoses Not on filedocumented in this encounter Administered Medications Inactive Administered Medications - up to 3 most recent administrations Medication Order MAR Action Action Date Dose Rate Site ampicillin-sulbactam (Unasyn) 1.5 g New Bag 11/19/2020 4:49 PM EDT 1.5 g vial attach to sodium chloride 0.9% 50 mL Mini-Bag Plus 1.5 g, Intravenous, 30 MIN PRE-OP, 1 dose, On Tue11/19/20 at 1400, Administer over 15 Minutes, Warning Vesicant/Irritant Medication , Day of Surgery (Day of Procedure), Indication for (Active or Suspected): Prophylaxis ePHEDrine (pf) (5 mg/mL) multi-dose inje ction Given 11/19/2020 4:49 PM EDT 10 mg Intravenous, PRN, Starting on Tue11/19/20 at 1646, Until Tue11/19/20 at 1855, Anesthesia Intra-op, Routine Given 11/19/2020 4:46 PM EDT 10 mg fentaNYL (pf) (50 mcg/mL) multi-dose Given 11/19/2020 4:54 PM ED T 50 mcg injection Intravenous, PRN, Starting on Tue11/19/20 at 1632, Until Tue11/19/20 at 1855, Anesthesia Intra-op, Routine Given 11/19/2020 4:32 PM EDT 50 mcg HYDROmorphone (Dilaudid) (2 mg/mL) multi-dose Given 4:58 PM EDT 0.5 mg injection solution Intravenous, PRN, Starting on Tue11/19/20 at 1658, Until Tue11/19/20 at 1855, Anesthesia Intra-op, Routine ketorolac (Toradol) (30 mg/mL) injection Given 11/19/2020 5:53 PM EDT 15 mg Intravenous, PRN, Starting on Tue11/19/20 at 1753, Until Tue11/19/20 at 1855, Anesthesia Intra-op, Routine lactated ringers infusion New Bag 11/19/2020 4:15 PM EDT 1,000 mL, at 100 mL/hr, Intravenous, CONTINUOUS, Starting on Tue11/19/20 at 1530, Until Tue11/19/20 at 2057, Day of Surgery (Day of Procedure) lidocaine (pf) (Xylocaine) (20 mg/mL) 2% Given 11/19/2020 4:32 P M EDT 100 mg injection syringe Intravenous, PRN, Starting on Tue11/19/20 at 1632, Until Tue11/19/20 at 1855, Anesthesia Intra-op, Routine ondansetron (pf) (Zofran) (2 mg/mL) inje ction Given 11/19/2020 5:41 PM EDT 4 mg Intravenous, PRN, Starting on Tue11/19/20 at 1741, Until Tue11/19/20 at 1855, Anesthesia Intra-op, Routine PHENYLephrine Rate/Dose Change 11/19/2020 5:56 30 mcg/min 22.5 mL/hr (Brannon-Synephrine) (80 mcg/mL) PM EDT in sodium chloride 0.9% 250 mL infusion Intravenous, CONTINUOUS PRN, Starting on Tue11/19/20 at 1649, Until Tue11/19/20 at 1855, Anesthesia Intra-op, Routine Rate/Dose Change 11/19/2020 5:52 PM EDT 50 mcg/min 37.5 mL/hr Rate/Dose Change 11/19/2020 5:46 PM EDT 60 mcg/min 45 mL/hr PHENYLephrine in NS (PF) (BRANNON-SYNEPHRINE) Given 11/19/2020 6:29 PM EDT 160 mcg 0.8 mg/10 mL (80 mcg/mL) multi-dose injection Syrg Intravenous, PRN, Starting on Tue11/19/20 at 1813, Until Tue11/19/20 at 1855, Anesthesia Intra-op, Routine Given 11/19/2020 6:13 PM EDT 80 mcg propofoL (Diprivan) 10 mg/mL bolus injection Given 4:54 PM EDT 40 mg (Anesthesia) Intravenous, PRN, Starting on Tue11/19/20 at 1632, Until Tue11/19/20 at 1855, Anesthesia Intra-op Given 11/19/2020 4:34 PM EDT 50 mg Given 11/19/2020 4:32 PM EDT 150 mg succinylcholine (Anectine;Quelicin) (20 Given 11/19/2020 4:33 PM EDT 100 mg mg/mL) injection Intravenous, PRN, Starting on Tue11/19/20 at 1633, Until Tue11/19/20 at 1855, Anesthesia Intra-op, Routine documented in this encounter Care Teams Parts Sales Counterperson Relationship Specialty Start Date End Date Aryan Wyatt MD PCP - General General Internal Medicine 10/29/[address] [place] [phone] documented as of this encounter
--- OUTSIDE RECORDS SUMMARY | 2022-02-08 17:44 | XMS_ITS | Encounter Summary ---
:1950 Author Organization [place] [address] Care Team Providers Name Role Phone Aryan Wyatt MD Primary Care Provider Encounter Details Date Type Department Care Team Description 10/31/2020 Telephone Hematology and Oncology [place] [address] Social History Tobacco Use Types Packs/Day Years Used Date Never Assessed Sex Assigned at Date Recorded Not on file documented as of this encounter Miscellaneous Notes Telephone Encounter - Mima Pacheco RN - 11/01/2020 4:07 PM EDT Referral from Dr. Bass via e-mail: melanoma patient needs to have consult with ENT for SLNB. Arrange for patient to be seen in ENT clinic by Dr. Saavedra on 11/06/20. ENT Dairy Manager alerts me to the fact that patient has clinical questions and would like a call back. Place call to Elvin. Son, Eduardo, answers the phone and places us on speaker- phone so that both he and Elvin can participate in the conversation. They express their multifactorial concern for having a consult on 11/06/20. They are looking to both expedite and streamline as much as possible. Among their reasons include that Elvin is the main caregiver for his , who has a history of a subarachnoid hemorrhage that left her with significant deficits and special needs. Time away from hiswife is difficult for appointments and surgery in that he must find a caregiver for her to cover in his absence. A second concern of theirs is that Elvin has an open wound, which even though covered with a bandage, he has been instructed by Dr. 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 Perhaps less important, but also to take into consideration, is that patient's commute to [place] is approximately 2 hours one-way. Questions Elvin and Eduardo would like to pose to Dr. Saavedra: 1. Can the 11/06 consult be a telehealth or telephone visit? This would save the patient from having to travel four hours and find someone to care for his . Also, can the consult be expedited for a time before Tuesday when the son, Eduardo, returns to [place] and the temporary Wi-Fi he has set up expires? Elvin is not tech savvy and would have to rely on telephone visit. While I explainedthat it is not traditional for surgeons to consult new patients via telehealth or telephone due to the need for physical assessment, they felt that they were given the impression by Dr. Bass that perhaps Dr. Saavedra would be able to assess the photos and op note in the chart, as well as talk directly to Dr. Bass to get an idea of what can/should be done without a physical consult since gettingto [place] is so difficult for the patient. 2. Would reconstruction of the wound left by the excision of the primary tumor be able to be done onthe same day as the SLNB? According to Elvin and Eduardo, they were told by Dr. Bass that the excisional margins were negative, and that he did not reconstruct purely so as not to disturb the lymphatic drainage system. Dr. Velez echoed a similar message to me in an e-mail. 3. Would Dr. Saavedra be able to perform the reconstruction, or do we need to involve Plastic Surgery? Sent both inStratossket message and e-mail to Dr. Saavedra to make aware of patient's situation and to request answers to patient's questions. Elvin and Eduardo inform me that Elvin has signed a DOPR form for Eduardo to be able to speak freely with [place]. According to Elvin and Eduardo, Valeria, the exit medical secretary receptionist from [employer], stated that she wouldscan it into the chart. Not yet in chart for review, but will continue to look for this form. Of note, Elvin has another son that lives locally (he is a dental equipment mechanic) and, while he is supportive in that he can transport Elvin to [place] if needed, he is not well-suited for health-related discussionsnor caring for Elvin's . Discussed with Elvin that I could continue to serve as his Navigator during this time due to my experience with ENT, but that if he required adjuvant chemotherapy that it might make more sense to transition to the Melanoma Navigator, Mildred Minor. Elvin voiced understanding and agreement. documented in this encounter Plan of Treatment Upcoming Encounters Date Type Specialty Care Team Description 04/15/2022 Office Visit Dermatology Erasto Barrett M D [facility] DR JUVENAL YOU-DERMAT [place], [place] [address] (Wo rk) documented as of this encounter Visit Diagnoses Not on filedocumented in this encounter Care Teams Field Clinical Engineer Relationship Specialty Start Date End Date Aryan Wyatt MD PCP - General General Internal Medicine 10/29/[address] [place] [phone] documented as of this encounter
--- OUTSIDE RECORDS SUMMARY | 2022-02-08 17:44 | XMS_ITS | Encounter Summary ---
:1950 [place] [address] Care Team Providers Name Role Phone Aryan Wyatt MD Primary Care Provider Encounter Details Date Type Department Care Team Description 11/16/2020 Telephone [facility] [place] [address] Social History Tobacco Use Types Packs/Day Years Used Date Never Assessed Sex Assigned at Date Recorded Not on file documented as of this encounter Miscellaneous Notes Telephone Encounter - María Hale - 11/16/2020 11:05 AM EDT CALLED PT TO SCHED PRE-OP COVID TEST-HAD TO [facility] Telephone Encounter - María Hale - 11/16/2020 11:05 AM EDT Called pt's son-earlene-re: pre-op covid test. Pt tested [facility] result scannedto chart. documented in this encounter Plan of Treatment Upcoming Encounters Date Type Specialty Care Team Description 04/15/2022 Office Visit Dermatology Erasto Barrett M D [facility] DR JUVENAL YOU-DERMAT [place], [place] [address] (Wo rk) documented as of this encounter Visit Diagnoses Not on filedocumented in this encounter Additional Health Concerns Infection Onset Date Last Indicated Resolved Time Rule Out COVID-19 11/19/2020 11/19/2020 11/19/2020 7:1 5 PM EDT documented as of this encounter Care Teams Lead Case Manager Relationship Specialty Start Date End Date Aryan Wyatt MD PCP - General General Internal Medicine 10/29/[address] [place] [id number] documented as of this encounter
--- OUTSIDE RECORDS SUMMARY | 2022-02-08 17:44 | XMS_ITS | Encounter Summary ---
:1950 Author Organization [facility] [place] [address] Care Team Providers Name Role Phone Aryan Wyatt MD Primary Care Provider Reason for Referral Consultation (Urgent) - Closed Specialty Diagnoses / Procedures Referred By Contact Refer red To Contact Otolaryngology Diagnoses Melanoma of cheek James Bass, [facility] [address] [facility] [place] [address] [place] [address] Referral ID Status Reason Start Date Expiration Date Visits V isits Requested Authorized [id number] Closed Consult, 10/30/2020 10/30/2021 1 1 Test & Treat Reason for Visit Consultation (Urgent) - Closed Specialty Diagnoses / Procedures Referred By Contact Refer red To Contact Dermatology Diagnoses Personal history of malignant melanoma of skin URGENT Camelia Gonzalez, Ranjan Deleon MD [address] [facility] [address] [place], [place] [address] [place] [address] Phone: Fax: Referral ID Status Reason Start Date Expiration Date Visits V isits Requested Authorized [id number] Closed Consult, Test 09/01/2020 08/28/2021 6 6 [facility] PCP Updated and/or Approved Encounter Details Date Type Department Care Team Description 10/29/2020 Procedure visit Dermatology at [facility] Melanoma in situ of cheek; Lorenzo Kulkarni MD Melanoma of cheek [address] [facility] [id number] [facility] [phone] [address]-[place]OLOG[place], [place] [address] Social History Tobacco Use Types Packs/Day Years Used Date Never Assessed Sex Assigned at Date Recorded Not on file documented as of this encounter Last Filed Vital Signs Vital Sign Reading Time Taken Comments Blood Pressure 151/77 10/29/2020 8:30 AM EDT Pulse 71 10/29/2020 8:30 AM EDT Temperature - - Respiratory Rate - - Oxygen Saturation - - Inhaled Oxygen Concentration - - Weight - - Height - - Body Mass Index - - documented in this encounter Patient Instructions Patient InstructionsGiselle Maza LPN - 10/29/2020 8:30 AM EDT SECOND INTENTION HEALING IT WAS DECIDED THAT YOUR MOHS WOUND WILL HEAL BY NATURE, ON ITS OWN, WITHOUT RECONSTRUCTION OR SIGNIFICNAT STITCHING Second intention means healing on its own. Your wound may heal within days if it is small, shallow, and if you are a fast healer. However, a larger and deeper wound may take weeks to months to completely heal. One of the advantages of a wound healing on its own, is that you do not have many physical restrictions. You may want to take it easy for the first 48-72 hours after surgery to prevent bleeding, but you may otherwise resume exercise and return to work. You may begin showering 72 hours after surgery but avoid direct water pressure from the shower head to your wound to prevent bleeding and tenderness/pain. Keep below as a reference while caring for your wound(s): After Surgery 1. Avoid tobacco, smoking/vapors, and cannabis (marijuana) for at least 3 weeks after your surgery. Smoking impairs healing and leads to worse scarring. Even cutting back on tobacco is helpful if you cannot stop or avoid this completely. 2. Do not drink alcohol for roughly 3 days as this can slow healing or cause bleeding. 3. Do not participate in athletic activities or heavy chores, or lift anything heavier than 10 pounds, for 2 days. Avoid climbing the stairs unless necessary during this time as well. You may resume your activities as usual after 2 days 4. Avoid swimming, hot tubs, and direct water pressure for 3 weeks after surgery. You may shower once your initial bandage comes off in 48 hours, however. If you do choose to swim in a pool, pond, alan, or ocean while your wound is still open, please make sure to wash the wound with soapy water immedia tely. . 5. Avoid antibiotic ointments such as triple antibiotic creams. Stick with your wound care instructions, please. 6. Whenever possible, it is helpful to take photographs with your camera or cell phone of any problems or concerns you see with your wound. We often ask for photos when you call with questions. 7. Starting 2 months following surgery, you can begin firm massage to any areas of firm scar along your incision to soften the scar and reduce bumpiness. Do this 3 times per day, 3 minutes each time. Do not start massage before 2 months. 8. Your wound will first develop is squishy yellowish substance at the bottom of the wound called granulation. This is your healing flesh. Once the inside of your wound has healed in, then the skin edges will begin to follow by getting closer and closer together until the wound has closed completely. The rate of how fast you heal is highly variable, but doing proper wound care will help you heal morequickly. 9. Keep your follow-up appointments and make sure to continue to have your skin checked, as often asis recommended by your floral designer, for new skin cancers. This is once per year for most patients. 10. Your can expect your scar to be red for several weeks with gradual fading of the redness over the next few months. 11. To optimize your scar, and best cosmetic result, please avoid direct sunlight to your healed scar for the first 6 months following surgery. UV ray exposure from the sun may cause the redness to last longer, or to cause permanent darkening of your scar. You can avoid sun by covering your incision wi th a bandage when outdoors, or wearing SPF 30 to 50 sunscreen (broad spectrum). 12. Bruising. It is very common to have bruising and swelling of the eyelids or other areas of face if you had surgery on the forehead, temples, cheeks, or nose. This is expected in most patients and will gradually resolve. \ 13. Iff you have severe pain not resolving with over the counter medicines, please call us. 14. You can use ice packs or a bag of frozen peas for 15-20 minutes 3-4 times daily to any areas of swelling but do not get bandages wet or dirty. Use caution not to put the icy item directly on your wound, directly onto your skin as this can damage skin, and avoid prolonged use more than 20 minutes. The best way to use ice packs is over the bandage, or a light cloth/paper towel between the ice pack and your skin. You can ice for as many days as needed until swelling has resolved. Wound Care ??? Gently remove your initial bandage (after 72 hours from surgery). It is normal to have swelling and bruising. ??? Begin wound care as below. ??? If your initial bandage only stayed on for 24 hours (for example, falls off sooner), this is okay. Resume your wound care and bandaging instructions as below. ??? Change your bandage once a day (and whenever it becomes wet or soaks through) until your suturesare removed. If you have absorbable sutures, you do wound care for 1 week and then stop. ??? For bandage changes: o Wash hands with soap and water, or use gloves that you can purchase at a local pharmacy or drug store. o Clean the surgical area with cotton-tipped swabs or soft gauze dipped in soapy water (recommend liquid soap in clean room temperature water). Roll the cotton swab over the incision with soapy water, then with plain water, and then gently pat dry. Do not scrub the area with a washcloth. Do not put direct shower water pressure onto your wound. Do not pick off any scabs. It is okay to allow soapy water to run over your wound in the shower, however, as an alternative means of cleaning your wound. o If you cannot remove any bloody or crusted areas, you may soak the area with wet gauze first for 15 to 20 minutes to help soften it o Pat the area dry with clean gauze or cotton swabs. Do not rub. o Use a cotton swab or two to apply a generous layer of petrolatum over the incision lines and any open-wound areas. If it is difficult to get the patrolatum onto your wound, you can try applying it tothe non-stick bandage itself and then putting the bandage over the wound. o Make sure your tube or jar of petrolatum is new or unused to prevent prior contamination from entering your wound. Avoid double dipping. o After applying petrolatum, use a clean nonstick gauze or other nonstick dressing, such as Telfa. This may be purchased over the counter at a drug store. Do not use regular gauze as it will stick to your wound and can peel off healing skin with bandage changes. o Secure the bandage with paper tape or a bandage. Band-aids are okay, but typically have more adhesive that can irritate the skin compared to paper tape. This can be purchased at a drug store. o Continue this wound care daily until your wound has healed or until otherwise specified by your doctor. Keep in mind that if you do not want to use a bandage at all due to difficulty, irritation of skin, cost, or inconvenience --- you can certainly avoid bandages altogether. However, it is imperative that you continue with topical petrolatum (plain, fragrance-free). This may need to be applied several times daily if it gets wiped off, washed off, or dries out. Things to purchase for wound care: -Nonstick gauze -A tube or tub of petrolatum jelly (fragrance-free, no dye, not lotion) -paper tape -cotton swabs -gloves (optional) -Dial or other antibacterial liquid soap If you have specific questions or instructions, it can be written/typed by your nurse or doctor here: Antibiotics: If you were given antibiotic prescription, it is important to start them the evening of your surgerydate. Most patients do not need antibiotics after surgery. For pain: Most patients of different ages do not require pain medications. If you do feel soreness or pain, start by taking over the counter extra strength acetaminophen (up to 3000 mg in a 24 hour period). Generally, we like you to avoid NSAIDS (non-steroid anti-inflammatory drugs such as ibuprofen) for the first 48 hours after surgery as this can increase risk of bleeding. However, if acetaminophen is not helping with pain, you can alternate acetaminophen with iburpofen (ibuprofen 400 mg every 4 hours.) Icepacks over your bandage without getting your bandage wet can also help with pain and swelling, for up to 20 minutes at a time (20 minutes off between icing sessions). Frozen peas work well as ice packs. THIS IS AN EXAMPLE OF A PAIN TREATMENT SCHEDULE: 1) You can take 500 mg acetaminophen one tablet by mouth at 6:00pm. This is over the counter. 2) You can take 400 mg of ibuprofen two hours later, at 8:00 pm, or other NSAID such as naproxen, aslong as it does not interact with your other medications and your other doctors have not told you toavoid this. This is over the counter. Check to see how many milligrams (mg) each of your ibuprofen tablets are. Most of the time, ibuprofen comes in 200 mg tablets, so 400 mg would mean taking two of these tablets or capsules. 3) You can take 500 mg of acetaminophen at 10:00 pm. Keep track of your total acetaminophen in a 24 hour period as your maximum should be 3000 mg total in a 24 hour period of this medication. 4) At midnight, you can take another 400 mg of ibuprofen. 5) you can continue on this schedule over the next 2 days, making sure to keep tabs of your total acetaminophen. If you are still in pain after trying the above, please call us. When to call your surgeon: ??? Fever of 100.4 degrees Fahrenheit or [...] medical record number if you have it. IF YOU ARE TRYING TO REACH US AFTER HOURS (before 8am, after 5pm, or on the weekends): Call the weigh machine operator or [phone] and ask for the floral designer on-call. If you have any non-urgent questions or concerns, please feel free to call my office or contact me through our patient portal, [employer], at [email or web address] How to contact us during business hours Mohs scheduling or Mohs follow-up appointments: [phone] documented in this encounter Progress Notes James Bass MD - 10/29/2020 8:30 AM EDT Images from the original note were not included. 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 Unfortunately, analysis of the central debulk revealed an area of invasive melanoma with a depth of 2.0mm measured on frozen sections. The debulk was thawed and sent for permanent sections revealing a depth of 2.2mm reported the day after surgery. The tumor margins (deep and peripheral) were cleared with Mohs Micrographic Surgery. Reconstruction was not performed to avoid disruption of lymphatic drainage of SLNB. I discussed next steps with the patient and his son Eduardo. A referral was placed and case discussed with oncology home health care case manager. Patient will be contacted with plan for SLNB and reconstruction to occur in a coordinated fashion. The patient his son understand and agreed with this plan. The patient was asked to call with any issues and is aware that I am available / should questionsarise. Please note that I have reviewed the preoperative checklist from today's nursing visit including relevant social history and medications. I have reviewed the preoperative photos if available and the biopsy report. VITAL SIGNS: BP 151/77 (BP Location (NBP): Right arm) Pulse 71 PHYSICAL EXAMINATION: General: patient is awake, alert, oriented and in no acute distress. Skin: Focused examination of surgical site(s) performed which shows a well healed biopsy site with adjacent white atrophic healed graft. PHYSICIAN REVIEW OF REPORTS, RECORDS, IMAGES: 1) The accompanying pathology report(s) associated with aforementioned biopsy slide(s) were/was alsoreviewed. Assessment: Elvin Winkler Jr. is a 70 y.o. male presenting for: 1. 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 Plan: 1. Findings from the biopsy report, today's clinical exam, and other pertinent details were reviewedwith patient today. All questions were answered. 2. Discussed treatment options based on the above findings. We recommended Mohs micrographic surgeryfor treatment of this tumor. Mohs micrographic surgery was indicated due to patient, site and/or tumor characteristics (see operative report for specific indication). 3. We discussed risks, benefits, and alternative treatment options to the Mohs micrographic surgery procedure and pertinent information including but not limited to the following: ?? Risks include bleeding, infection, scar, recurrence, incomplete tumor removal or inability to cure with surgery alone if the tumor features are more aggressive than the initial pathology indicates. Occasionally, additional adjuvant treatments may be recommended. Additional risks include large wound, prolonged wound and healing, pain, swelling, bruising, increased appearance of vessels or worseningerythema of baseline skin; more rarely risks include damage to underlying structures such as nerves,cartilage, or muscle which could lead to temporary or permanent loss of sensation or motor function. ?? Benefit is precise tumor removal ?? If reconstruction is performed, it is specific to the patient and defect. ?? Discussed that the shape, size, depth of the wound is often not known until the tumor is cleared and thus the reconstruction options are sometimes not known until after tumor clearance. Occasionally, referrals to other providers may be recommended for reconstruction based on patient preference and need. ?? Reviewed the pros and cons of common reconstructions used for this tumor type, size, and location, and that reconstruction may lead to change in appearance. ?? Natural history of scar was discussed, including that the scar will continue to mature for 1-2 years. Recommended avoidance of special ointments or scar creams, and avoidance of direct sun exposure to the scar for optimal recovery. ?? Reviewed that there are some aspects of cosmesis that are dependent on patient's characteristics such as age, skin laxity/texture factors, inflammatory skin diseases such as rosacea, prior surgery/radiation, degree of actinic damage, smoking status, strength of the patient's immune system, diligentwound care, medications, and genetics. ?? Having Mohs surgery may lead to physical limitations for optimal healing, such as restricted physical activity and heavy lifting. 4. The nature of sun-induced photo-aging and skin cancers was discussed. Recommended sun avoidance when possible, especially peak hours of sun 10 am to 2pm, protective clothing such as wide-brimmed hats and long-sleeved clothing, and the use of SPF broad-spectrum sunscreen SPF 50 or higher. 5. Signs and symptoms of skin cancer reviewed. Patient to report any new, changing, or symptomatic lesions and follow up with his or her floral designer or other skin provider. 6. Discussed avoiding direct sun exposure to scars for best cosmetic result. Note initiated by EFRAIN Sousa LPN has performed the documentation for this encounter in the presence of andacting as a scribe for Dr. Bass I performed the above scribed service and agree with the accuracy of the documentation in this encounter. Reviewed and signed by: James Bass MD PhD Mohs Micrographic Surgery and Dermatologic Oncology Department of Dermatology James Bass MD - 10/29/2020 8:30 AM EDT Mohs micrographic Surgery Operative Report Using MART-1 Immunostains Patient name: Elvin Winkler Jr. : 1950 Date: 10/29/2020 Staff Surgeon: James Bass MD PhD Nursing/Media Arts Professor(s): Giselle Maza [facility] Light Servicer(s): Thu Jean Baptiste Pre-operative diagnosis: Melanoma In Situ Post-operative diagnosis: Invasive Melanoma (invasion 2.0mm depth), final depth pending permanent section analysis Location/Site: Left Cheek/lower eyelid Procedure: Mohs micrographic surgery Indications: Because of the histologic and clinical nature of the lesion, as well as its location, the need to achieve the highest cure rate while providing maximum tissue preservation warranted tumor extirpation via microscopically- controlled excision using the Mohs fresh tissue technique. Alternate therapeutic options were discussed on several occasions prior to surgery. After informed consent was obtained and appropriate instruction was provided, the patient underwent tumor extirpation by the Mohs fresh tissue technique as follows: Stages: Four Preoperative size of tumor: 0.8 x 0.8 cm Stage I The nature and purpose of the procedure, associated risks, possible consequences and complications,and alternative forms of treatment were explained in detail. We reviewed the possible repairs based on the clinical appearance of tumor but discussed that often the repair options may not be known until the tumor has jose extirpated. Informed consent and permission to take photographs were obtained. The site was confirmed with the patient/authorized surgical device sales representative/referring physician and/or a photograph form time of biopsy. A pre-operative time-out (procedural pause) was conducted with no unresolved d iscrepancies noted. Local anesthesia was obtained with 1% lidocaine with 1:100,000 epinephrine. The surgical site was prepped and draped in the usual sterile manner. With all visible gross tumor completely excised, the borders of the tumor and 3-5 mm margins were excised as a complete layer. Hemostasis was achieved by electrocoagulation. The excised tissue was oriented and divided into 3 sections, chromacoded, and submitted for frozen sections. The patient tolerated the procedure well and without complications. On microscopic evaluation of the frozen sections, residual tumor was identified as Melanoma in Situon section A1.Note a central debulk was removed and analyzed revealing invasive melanoma, maximum depth 2.0mm Stage II The surgical site was re-anesthetized with 1% lidocaine with 1:100,000 epinephrine, re-prepped and redraped in a sterile manner. The residual tumor was re-excised as a complete layer 3-5mm in thickness using the Mohs map to delineate area of residual tumor. Hemostasis was achieved with electrocoagulat ion. The tissue was oriented and divided into 2 sections, chromacoded, and submitted for frozen sections. The patient tolerated the procedure well and without complications. On microscopic evaluation of the frozen sections, residual tumor was identified as Melanoma in situ on section B1 & B2.. Stage III The surgical site was re-anesthetized with 1% lidocaine with 1:100,000 epinephrine, re-prepped and redraped in a sterile manner. The residual tumor was re-excised as a complete layer 3-5mm in thickness using the Mohs map to delineate area of residual tumor. Hemostasis was achieved with electrocoagulat ion. The tissue was oriented and divided into 2 sections, chromacoded, and submitted for frozen sections. The patient tolerated the procedure well and without complications. On microscopic evaluation of the frozen sections, residual tumor was identified as Melanoma in Situ(s) C1 & C2. Stage IV The surgical site was re-anesthetized with 1% lidocaine with 1:100,000 epinephrine, re-prepped and redraped in a sterile manner. The residual tumor was re-excised as a complete layer 3-5mm in thickness using the Mohs map to delineate area of residual tumor. Hemostasis was achieved with electrocoagulat ion. The tissue was oriented and divided into 2 sections, chromacoded, and submitted for frozen sections. The patient tolerated the procedure well and without complications. On microscopic evaluation of the frozen sections, no residual tumor was identified on the deep or outer border of the sections. Depth of excision Muscle. The final size of the defect after complete tumor removal was 3.6 x 3.3 cm, extending to level of Muscle. Note: MART-1 (Melanoma Antigen Recognized by T-cells) antibody immunostaining was used during Mohs surgery as per standard protocol, in addition to routine processing of all sections with hematoxylin and eosin (12 specimens total). A negative control was also processed. The patient was informed of theprocedure and it's risk/benefits during the consent for the procedure. ,The residual melanocytic lesion was biopsied prior to Mohs and processed by frozen sectioning with both H&E and MART-1 immunostain for further characterization of the original lesion. One or more of the reagents used in immunohistochemical testing in this case may not have been cleared or approved by the U.S. Food and Drug Administration (FDA). The FDA has determined that such clearance or approval is not necessary. These tests are used for clinical purposes. They should not be regarded as investigational or for research.This laboratory is certified under the Clinical Laboratory Improvement Amendments of 1988 (CLIA-88) as qualified to perform high complexity clinical laboratory testing. James Bass MD PhD Mohs Micrographic Surgery and Dermatologic Oncology Department of Dermatology documented in this encounter Plan of Treatment Upcoming Encounters Date Type Specialty Care Team Description 04/15/2022 Office Visit Dermatology Erasto Barrett [facility] [address] [place] [address] (Wo rk) Scheduled Referrals Name Type Priority Associated Diagnoses Order S chedule Referral to Outpatient Referral Routine Melanoma of cheek Ord ered: Surgical Oncology 10/30/2020 documented as of this encounter Procedures Procedure Name Priority Date/Time Associated Diagnosis Comme nts SPECIMEN TO STAT 10/29/2020 11:40 AM Melanoma in situ of R esults for this PATHOLOGY EDT cheek procedure are i n the results section. SURGICAL PATHOLOGY Routine 10/29/2020 11:37 AM Re sults for this REPORT EDT procedure are i n the results section. documented in this encounter Results Specimen to Pathology (10/29/2020 11:40 AM EDT) Specimen Anatomical Collection Method Collection Time Receive d Time (Source) Location / / Volume Laterality AP Specimen 10/29/2020 11:40 10/29/2020 AM EDT 11:40 AM EDT Narrative [facility] - 10/29/2020 11:40 AM EDT Specimen requisition ordered. ??Separate Pathology report to follow James Bass MD PATHOLOGY/CYTOLOGY ORDERABLE S Performing Organization Address City/State/[place] [address] [facility] [address] Surgical Pathology Report (10/29/2020 11:37 AM EDT) Component Value Ref Test Analysis Performed At [facility] gist Range Method Time Signature Surgical [id number] ? Location: [facility] Pathology LAZARO Report The signing pathologist has (i) examined the relevant preparation(s) for the [facility] specimen(s) and (ii) rendered or confirmed the diagnosis(es) . HOSPITAL LABORATORY . ?Surgic al Pathology DIAGNOSIS A. 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 of Pathology, [place], [place] ADDITIONAL STUDIES Multiple deeper sections have been examined. SPECIMEN(S) SUBMITTED A - left cheek, biopsy (1) CLINICAL INFORMATION Moh's surgery patient, outside biopsy showed MIS , central debulking performed revealing area concerning f or invasive melanoma on both H&E and MART1, maximum depth of lesion 1.9 mm. Please ev aluate with permanent sections. Note the peripheral and deep margins were cleared w ith Mohs micrographic surgery, there was no invasive melanoma noted at the jennifer ns themselves. Of note this site is immediately adjacent to a prior graft site, per patient procedure performed in 2016 and was almost invasive melanoma, pending these results we will search for those records. See prior pathology report included. SPECIMEN PROCESSING A - Labeled/Fixative: Left cheek, formalin. Quantity/Size: ??Two, averaging 0.8 x 0.4 x 0.2 cm. Tissue Description: Pal whit e skin fragments consistent with residual tissue from Mohs micrographic surgery. Sections/Processing: Submitted en toto ??in 2 cassettes labeled A1-A2. ??sns Specimen (Source) Anatomical Collection Method Collection Time Re ceived Time Location / / Volume Laterality 10/29/2020 11:37 AM EDT James Bass MD PATHOLOGY/CYTOLOGY ORDERABLE S Performing Organization Address City/State/[place] [address] documented in this encounter Visit Diagnoses Diagnosis Melanoma in situ of cheek Malignant melanoma of skin of other and unspecified parts of face Melanoma of cheek Malignant melanoma of skin of other and unspecified parts of face documented in this encounter Care Teams Plastic Finisher Relationship Specialty Start Date End Date Aryan Wyatt MD PCP - General General Internal Medicine 10/29/[address] [place] [id number] documented as of this encounter
--- OUTSIDE RECORDS SUMMARY | 2022-02-08 17:44 | XMS_ITS | Encounter Summary ---
:1950 Author Organization [facility] [place] [address] Care Team Providers Name Role Phone Aryan Wyatt MD Primary Care Provider Reason for Visit Consultation (Urgent) - Closed Specialty Diagnoses / Procedures Referred By Contact Refer red To Contact Otolaryngology Diagnoses Melanoma of cheek James Bass, [facility] Otolaryngology darien WESLEY [facility] [place] [address] [facility] [place] [address] Referral ID Status Reason Start Date Expiration Date Visits V isits Requested Authorized [id number] Closed Consult, 10/30/2020 10/30/2021 1 1 Test & Treat Encounter Details Date Type Department Care Team Description 11/03/2020 TH Visit Otolaryngology at [facility] Lucas Saavedra Melanoma of face (TeleHealth) [facility] [place] [address] [place] [address] [facility] [place], [place] [address] Social History Tobacco Use Types Packs/Day Years Used Date Never Assessed Sex Assigned at Date Recorded Not on file documented as of this encounter Progress Notes Lucas Saavedra MD - 11/03/2020 9:00 AM EDT Telephone visit encounter 11/03/20 Time of encounter: 9:03AM Duration of encounter: 75 minutes, which include review of medical chart, relevant imaging, blood tests as well as coordination of care. Conference call made by patient's son Eduardo Winkler who lives in [place] and patient's home phone. Chart reviewed extensively as well as review of clinical photos, and communications with Dr Bass in dermatology Pathology: A. Left cheek, Moh's excision (debulk specimen): - Invasive melanoma, Breslow depth 2.2 mm (pT3a), without ulceration - 9 mitoses/mm2 - Nonbrisk TILs - Negative for lymphovascular or perineural invasion - Negative for regression Telephone visit consent was reviewed with the patient: This is a telephone visit. The visit will be billed to your insurance carrier. You may be responsible for any co-pay or call insurance is required by your insurance carrier. Risks of telemedicine include poor pulverizer mill operator limiting medical decision making by your provider, delays in treatment from equipment failure, and inability to complete a full evaluation [which may require an office visit]. Benefitsinclude the ability to receive care outside of our office, the limiting your requirement for displacement. Patient was in agreement with proceeding. Patient identity was confirmed and patient agreed to proceed with the interaction and treatment, if necessary. Background: This patient has hx of left cheek [id number] s/p excision and reconstruction done 2012 [facility] with skin graft Content of discussion: I was asked to see this patient [...] noted to have an area of induration inhis prior surgical site and a shave biopsy showed melanoma in situ. The patient was subsequently referred to for Mohs micrographic Surgery which was done last week. I had a chance to discussthe findings as well as the extent of the surgery with Dr Bass and clinical photographs are on thi s patient's chart. Due to the final pathology which showed [...] to completely clear the melanoma of concern. Measurements of the defect is 3.3 x 3.6 cm. The consultation was held on the phone since it was difficult for the patient to travel back to [facility] for consultation since he is also taking care of his debilitated . The patient's son who lives in [place] was also on the phone call in order to direct the conversation and facilitate the care of the patient. Currently the patient denies any pain. She is following the dressing instructions that were given tomdcata in dermatology. There is no active bleeding. There has been scant drainage of some bloody tingedfluid. He has not developed any fevers or chills. Patient does take aspirin on a daily basis. He is not taking any other anticoagulants. He does not bruise easily. Past medical history otherwise significant for hypertension and hypercholesterolemia. He has had also basal cell cancers removed. Patient medications is as follows: Current Outpatient Medications: ??? aspirin EC 81 mg Tablet, Delayed Release (E.C.), Take 81 mg by mouth daily., Disp: , Rfl: ??? [...] ORAL), Take by mouth., Disp: , Rfl: Disposition: We recommended to take the patient to the OR for sentinel lymph node mapping and dissection for removal. At the same time, I think that based on the fact that the melanoma has been clearedvia Mohs surgery that it would be safe to perform reconstruction. From a sentinel node biopsy standpoint, I explained to the patient and his son that he needs to have the sentinel node scan done on themorning of his procedure. Based on the findings on this test, we will not determine which sites of julissa concerns need to be considered. We discussed that he could have sentinel nodes in his parotid orand neck. I specified to the patient and his son that the objective is to identify the sites where melanoma cells could potentially travel to and that identification of sentinel nodes does not imply that there is melanoma. Dissection for his parotid nodes may require dissection of his facial nerve. Wediscussed also the other neurovascular structures of the neck that are potentially at risk. I discussed that these nodes will be submitted for final pathology and that I would not be able to know whether they contain melanoma until the final pathology is obtained which will take about a week. Based onthe final pathology, he may need to undergo a more formal neck dissection. He will need to come to the office for evaluation at that point and for suture removal. Regarding the reconstruction, discussed that he will likely require some type of cervical facial advancement flap in order to given more bulk to the cheek and infraorbital region. Hopefully we will accomplish a better result, however that there are potential risks as to when the tissues heal. It is possible that he ends up with lower lid or cheek dysfunction or abnormal scarring. This may necessitaterevision surgery. Both the patient and his son had numerous questions which I answered to their satisfaction. We discussed that he would set up an appointment for him to be seen by his PCP for physical examination. I discussed that I would place the orders for the sentinel node scan and the operation to be done on the same day. he is also to call if there are new concerns. He had numerous concerns about his work schedule and coordination of transportation which will be addressed later. For the time being I kat do my best to arrange his lymphoscintigraphy and surgery in an expedient manner Patient feels that all his and his son's concerns and questions have been addressed. he and his son are pleased about the telephone visit encounter. documented in this encounter Plan of Treatment Upcoming Encounters Date Type Specialty Care Team Description 04/15/2022 Office Visit Dermatology Erasto Barrett M D [facility] [address] [facility], [place] [address] (Wo rk) documented as of this encounter Visit Diagnoses Diagnosis Melanoma of face Malignant melanoma of skin of other and unspecified parts of face documented in this encounter Care Teams Instrumentation Tech Relationship Specialty Start Date End Date Aryan Wyatt MD PCP - General General Internal Medicine 10/29/[address] [place] [id number] documented as of this encounter
== END 2022-02-08 17:34 | disposition home or self-care (01) ==
LOC: NCHCN 17:33
PROVIDERS: PCP Internal Medicine; Visit Provider Nurse Practitioner Family
DX: L60.0 Ingrowing nail (principal); L08.89 Other specified local infections of the skin and subcutaneous tissue
CPT/HCPCS: 87070; 87205

== ENCOUNTER 2022-02-09 18:32 | Outpatient (REF) | payer MEDICARE, OTHER, SELFPAY | END 2022-02-09 18:33 | disposition home or self-care (01) | LOC: NCHCN 18:32 | PROVIDERS: PCP Internal Medicine; Visit Provider Nurse Practitioner Family ==

== ENCOUNTER 2022-02-26 17:37 | Outpatient (REF) | payer MEDICARE, OTHER, SELFPAY ==
[2022-02-26 20:06] LABS: ALT 63 U/L (16-63); Anion Gap 8.7 mmol/L (3-11); BUN 18 mg/dL (7-18); CO2 26.3 mmol/L (21.0-32.0); CREATININE 0.9 mg/dL (0.70-1.30); Calcium 8.7 mg/dL (8.5-10.1); Calculated LDL 100 mg/dL (<100); Chloride 106 mmol/L (98-107); Cholesterol 188 mg/dL (<200); Glucose 112 mg/dL (74-106); HDL Cholesterol 48 mg/dL (40-60); Potassium 3.7 mmol/L (3.5-5.1); Sodium 141 mmol/L (136-145); Triglyceride 200 mg/dL (<150)
== END 2022-02-26 17:38 | disposition home or self-care (01) ==
LOC: NCHCN 17:37
PROVIDERS: PCP Internal Medicine; Visit Provider Internal Medicine
DX: I10 Essential (primary) hypertension (principal); E78.5 Hyperlipidemia, unspecified
CPT/HCPCS: 80048; 80061; 84460

== ENCOUNTER 2023-02-25 18:29 | Outpatient (REF) | payer MEDICARE, OTHER, SELFPAY ==
[2023-02-25 19:11] LABS: ALT 48 U/L (16-63); Anion Gap 9.2 mmol/L (3-11); BUN 18 mg/dL (7-18); CO2 25.8 mmol/L (21.0-32.0); Calcium 8.8 mg/dL (8.5-10.1); Calculated LDL 89 mg/dL (<100); Chloride 107 mmol/L (98-107); Cholesterol 169 mg/dL (<200); Estimated GFR 79.47 (mL/min/1.73m2); Glucose 106 mg/dL (74-106); HDL Cholesterol 45 mg/dL (40-60); Potassium 4.1 mmol/L (3.5-5.1); Sodium 142 mmol/L (136-145); Triglyceride 177 mg/dL (<150)
[2023-02-25 19:30] LABS: Creatine Kinase 187 U/L (39-308)
== END 2023-02-25 18:30 | disposition home or self-care (01) ==
LOC: NCHCN 18:29
PROVIDERS: PCP Internal Medicine; Visit Provider Internal Medicine
DX: I10 Essential (primary) hypertension (principal); E78.5 Hyperlipidemia, unspecified
CPT/HCPCS: 80048; 80061; 82550; 84460

== ENCOUNTER 2023-06-03 17:28 | Outpatient (REF) | payer MEDICARE, OTHER, SELFPAY ==
[2023-06-03 19:37] LABS: Abs Immature Grans 0.02 10^3/uL (0.0-0.06); Absolute Basophil Count 0.05 10^3/uL (0.0-0.2); Absolute Eosinophil Count 0.41 10^3/uL (0.0-0.7); Absolute Lymphocyte Count 1.52 10^3/uL (1.2-3.4); Absolute Monocyte Count 0.93 10^3/uL (0.1-0.8); Absolute Neutrophil Count 4.98 10^3/uL (1.2-6.7); Basophils % 0.6; Eosinophils % 5.2; HCT 47.8 % (40.0-50.0); HGB 16.7 g/dL (13.5-17.5); Immature Grans % 0.3; Lymphocytes % 19.2; MCH 33.5 pg (27.0-33.0); MCHC 34.9 % (32.0-36.0); MCV 96 fL (80-95); MPV 9.2 fL (8.0-11.0); Monocytes % 11.8; Neutrophils % 62.9; Platelet Count 172 10^3/uL (130-400); RBC 4.99 10^6/uL (4.36-5.78); RDW 12.3 % (11.8-14.1); RDW-SD 43.8 fL; WBC 7.91 10^3/uL (4.4-10.8)
== END 2023-06-03 17:29 | disposition home or self-care (01) ==
LOC: NCHCN 17:28
PROVIDERS: PCP Internal Medicine; Visit Provider Internal Medicine
DX: L27.0 Generalized skin eruption due to drugs and medicaments taken internally (principal); R79.82 Elevated C-reactive protein (CRP)
CPT/HCPCS: 85025; 86140

== ENCOUNTER 2024-09-06 17:58 | Outpatient (REF) | payer MEDICARE, OTHER, SELFPAY ==
[2024-09-06 19:55] LABS: ALT 45 U/L (16-63); Anion Gap 5.1 mmol/L (3-11); BUN 17 mg/dL (7-18); CO2 29.9 mmol/L (21.0-32.0); Calcium 9.1 mg/dL (8.5-10.1); Chloride 107 mmol/L (98-107); Creatine Kinase 185 U/L (39-308); Estimated GFR 78.49 (mL/min/1.73m2); Glucose 112 mg/dL (74-106); Sodium 142 mmol/L (136-145)
[2024-09-06 20:15] LABS: Calculated LDL 89 mg/dL (<100); Cholesterol 167 mg/dL (<200); HDL Cholesterol 57 mg/dL (40-60); Triglyceride 106 mg/dL (<150)
== END 2024-09-06 17:59 | disposition home or self-care (01) ==
LOC: NCHCN 17:58
PROVIDERS: PCP Internal Medicine; Visit Provider Internal Medicine
DX: E78.5 Hyperlipidemia, unspecified (principal)
CPT/HCPCS: 80048; 80061; 82550; 84460

== ENCOUNTER 2025-02-22 16:19 | Outpatient (REF) | payer MEDICARE, OTHER, SELFPAY ==
[2025-02-22 19:12] LABS: Anion Gap 8.2 mmol/L (3-11); BUN 20 mg/dL (7-18); CO2 27.8 mmol/L (21.0-32.0); Calcium 8.6 mg/dL (8.5-10.1); Chloride 103 mmol/L (98-107); Estimated GFR 78.49 (mL/min/1.73m2); Glucose 191 mg/dL (74-106); Potassium 4.0 mmol/L (3.5-5.1); Sodium 139 mmol/L (136-145)
== END 2025-02-22 16:20 | disposition home or self-care (01) ==
LOC: NCHCN 16:19
PROVIDERS: PCP Internal Medicine; Visit Provider Physician Assistant
DX: I10 Essential (primary) hypertension (principal)
CPT/HCPCS: 80048

== ENCOUNTER 2025-06-07 16:37 | Outpatient (REF) | payer MEDICARE, SELFPAY ==
[2025-06-07 19:11] LABS: Abs Immature Grans 0.03 10^3/uL (0.0-0.06); HCT 44.7 % (40.0-50.0); HGB 15.2 g/dL (13.5-17.5); Immature Grans % 0.3 %; MCH 32.9 pg (27.0-33.0); MCHC 34.0 % (32.0-36.0); MCV 97 fL (80-95); MPV 9.4 fL (8.0-11.0); Platelet Count 213 10^3/uL (130-400); RBC 4.62 10^6/uL (4.36-5.78); RDW 13.1 % (11.8-14.1); RDW-SD 46.5 fL; WBC 9.40 10^3/uL (4.4-10.8)
[2025-06-07 19:29] LABS: Anion Gap 8.2 mmol/L (3-11); BUN 19 mg/dL (9-23); CO2 29.8 mmol/L (20.0-31.0); Calcium 9.3 mg/dL (8.3-10.6); Chloride 105 mmol/L (98-107); Glucose 110 mg/dL (74-106); Potassium 3.9 mmol/L (3.5-5.1); Sodium 143 mmol/L (136-145)
[2025-06-07 19:32] LABS: Magnesium 2.1 mg/dL (1.6-2.6)
== END 2025-06-07 16:38 | disposition home or self-care (01) ==
LOC: NCHCN 16:37
PROVIDERS: PCP Internal Medicine; Visit Provider Physician Assistant
DX: R60.0 Localized edema (principal)
CPT/HCPCS: 80048; 83735; 83880; 85025

== ENCOUNTER 2025-06-26 15:38 | Outpatient (REF) | payer MEDICARE, SELFPAY ==
[2025-06-26 20:32] LABS: Magnesium 2.0 mg/dL (1.6-2.6)
[2025-06-26 20:33] LABS: Anion Gap 8.6 mmol/L (3-11); BUN 19 mg/dL (9-23); CO2 28.4 mmol/L (20.0-31.0); Calcium 9.0 mg/dL (8.3-10.6); Chloride 107 mmol/L (98-107); Glucose 120 mg/dL (74-106); Potassium 3.8 mmol/L (3.5-5.1); Sodium 144 mmol/L (136-145)
== END 2025-06-26 15:39 | disposition home or self-care (01) ==
LOC: NCHCN 15:38
PROVIDERS: PCP Internal Medicine; Visit Provider Physician Assistant
DX: R60.0 Localized edema (principal)
CPT/HCPCS: 80048; 83735

== ENCOUNTER 2025-07-23 13:02 | Outpatient (REF) | payer MEDICARE, SELFPAY ==
[2025-07-23 19:35] LABS: TSH (W/Ref FT4) 1.14 uIU/mL (0.55-4.78)
== END 2025-07-23 13:03 | disposition home or self-care (01) ==
LOC: NCHCN 13:02
PROVIDERS: PCP Internal Medicine; Visit Provider Nurse Practitioner
DX: E04.1 Nontoxic single thyroid nodule (principal)
CPT/HCPCS: 84443